=== PATIENT | male | born 1970 | race Caucasian/White ===

== ENCOUNTER 2018-05-13 13:03 | Emergency (ER) | payer MEDICAID, SELFPAY ==
[2018-05-13 13:04] VITALS: BP 124/73; PULSE 74; RESP 18; TEMP 36.4; O2SAT 100; BMI 32.3
--- NOTE | 2018-05-13 13:23 | EKG12_ITS ---
Test Reason : LOWER EXTREMITY Blood Pressure : / mmHG Vent. Rate : 090 BPM Atrial Rate : 090 BPM P-R Int : 126 ms QRS Dur : 096 ms QT Int : 344 ms P-R-T Axes : 062 081 075 degrees QTc Int : 420 ms Poor data quality, interpretation may be adversely affected Normal sinus rhythm Normal ECG Confirmed by LUIS A LAUREANO, SHAYY ([id number]), editorial intern MARILYN ROONEY ([id number] on 05/18/2018 1:02:46 PM Referred By: HANDY Confirmed By:SHAYY GUNN MD
--- NOTE | 2018-05-13 13:24 | VDLE_ITS ---
Reason For Study: BLE EDEMA RIGHT LEFT GSV is normal. GSV is normal. CFV is compressible, spontaneous, phasic, CFV is compressible, spontaneous, phasic, competent and demonstrates normal competent, and demonstrates normal augmentation. augmentation. FV is compressible, spontaneous, phasic, FV is compressible, spontaneous, phasic, competent and demonstrates normal competent and demonstrates normal augmentation. augmentation. POP V is compressible, spontaneous, phasic, POP V is compressible, spontaneous, phasic, competent and demonstrates normal competent and demonstrates normal augmentation. augmentation. T/P Trunk is compressible. T/P Trunk is compressible. PTV is compressible. PTV is compressible. RT PerV is compressible. LT PerV is compressible. Procedure Exam performed portable in ED. The exam was diagnostic. The study was technically difficult. A preliminary report was called and/or faxed to Dr. Witt & ED. Interpretation Summary No evidence for acute deep venous thrombosis bilateral lower extremities with patent and compressible bilateral great saphenous veins. Ordering Physician: Jyotsna Alicea Referring Physician: MONICA PCP Performed By: Martina Pompa, MIESHA, RVT
--- NOTE | 2018-05-13 13:24 | RAD_ITS ---
STUDY: X-RAY CHEST REASON FOR EXAM: Male, 47 years old. TECHNIQUE: COMPARISON: December 20, 2016. FINDINGS: The heart and mediastinum are within normal limits. Calcifications are noted in the thoracic aorta. The lung rogers are clear. Old rib fractures present on the left side. There is no evidence also pleural effusion or pneumothorax. The trachea is in the midline. IMPRESSION: negative chest unchanged since December 20, 2016. Electronically Signed: Neema Mcgee, at 15:20 EST Tel , Service support , RAD/Chest PA and Lateral
[2018-05-13 13:55] LABS: Absolute Lymphocyte Count 2.62 X10^3/ul (0.83-4.51); Absolute Neutrophil Count 2.8 X10^3/uL (2.0-7.7); Basophil# 0.02 X10^3/uL; Basophil% 0.3 % (0-1); Eosinophil# 0.13 X10^3/uL; Eosinophils% 2.1 % (0-5); Hematocrit 46.7 % (40-54); Hemoglobin 15.2 g/dl (13.0-16.5); Lymphocyte # 2.62 X10^3/ul (4.0); Lymphocyte % 42.6 % (19-41); Mean Corp Hgb Conc 32.5 g/gl (32-36); Mean Corpuscular Hgb 31.9 pg (27.0-32.0); Mean Corpuscular Volume 97.9 fL (80-94); Mean Platelet Vol. 10.1 fl (6.2-12.0); Monocyte# 0.54 X10^3/uL; Monocyte% 8.8 % (0-10); Neutrophil # 2.83 X10^3/uL (2.7-7.7); Platelet Count 258 K/mm3 (150-450); RBC Distribution Width CV 12.5 % (11.6-14.6); RBC Distribution Width SD 45.1 fl (35.1-43.9); Red Blood Count 4.77 M/mm3 (4.6-6.2); White Blood Count 6.2 K/mm3 (4.4-11.0)
[2018-05-13 13:56] LABS: POSITIVE COUNT NO; POSITIVE DIFFERENTIAL NO; POSITIVE MORPHOLOGY NO
[2018-05-13 14:10] LABS: Anion Gap 7 (5-15); BUN 11 mg/dL (7-18); BUN/Creat Ratio 8.7 RATIO (10-20); Calcium,Total 8.6 mg/dL (8.5-10.1); Chloride 108 mmol/L (98-107); Creatinine, Serum 1.26 mg/dL (0.70-1.30); EST Glomerular Filtration Rate 65 mL/min (>60); Est Glom Filt Rate - Afr Amer 79 mL/min (>60); Estimated Creatinine Clearance 74.83 ml/min; Glucose 122 mg/dL (74-106); Potassium 4.3 mmol/L (3.5-5.1); Sodium Level 145 mmol/L (136-145)
[2018-05-13 14:22] LABS: BNP,B-Type NATRIURETIC PEPTIDE 207.8 pg/mL (0-100)
--- NOTE | 2018-05-13 15:34 | ED.VISSUMM ---
- ER Visit Summary Date of Service: 05/13/18 Chief Complaint: [Leg swelling] History of Present Illness: The patient is a 47 M [presents to the emergency department with bilateral leg swelling that he has had for 5-6 days. Patient states the legs feel somewhat sore and stiff from the knees down. Patient denies any trauma. He denies recent travel or surgery. Patient states he is urinating normally. Only medical history he states is early COPD. Patient does not have a history of CHF. Patient does not have a history of kidney disease.] Physical Examination: [HEENT-PERRLA, EOMI. Cranial nerves II through XII grossly intact. TMs clear. Mucous membranes moist. No adenopathy. Cardiovascular-regular rate and rhythm without murmur or ectopy Lungs-clear to auscultation, chest wall stable without crepitus or subcu emphysema Abdomen-normoactive bowel sounds, soft, nontender, no rebound or rigidity, no peritoneal signs. Extremities-intact ?4, normal range of motion, normal pulses, atraumatic. Patient has +2 edema both lower extremities at symmetrical.] Test Results: [EKG obtained on arrival showed a sinus rhythm with a ventricular rate of 90 bpm with no acute I segment changes. CBC with differential obtained showed a white count 6.2, hemoglobin 15, hematocrit 47, platelets 258. Chemistries unremarkable. BUN was 11 and creatinine was 1.26. BNP was slightly elevated 207. Troponin was less than 0.015. Venous duplex of both lower extremities was negative. Chest x-ray showed nothing acute.] Emergency Department Course and Treatment: [] Treatment Plan: [Patient advised to follow-up with primary care physician architectural sales consultant for no doc within next 3-5 days. Patient advised to use compression stockings.] Disposition: [Discharged home in stable condition] Impression: [Bilateral leg edema/venous insufficiency] This note was generated with [employer] dictation software. It may contain incorrect words, spelling, and punctuation that were not noted in review of the chart prior to signing ED Disposition - Plan for ED Patient: Chief Complaint: Lower Extremity Injury Referrals: Care Physician,No Primary [Primary Care Provider] -
--- NOTE | 2018-05-13 15:36 | ED.DEP ---
ED Disposition - Plan for ED Patient: Chief Complaint: Lower Extremity Injury Instructions: ED Leg Swelling Bilateral Referrals: Care Physician,No Primary [Primary Care Provider] - Kendall Hadley III, MD [STAFF PHYSICIAN] - 3-5 Days
[2018-05-13] MEDS: Furosemide 40 MG/4 ML Vial IV (15:46)
[2018-05-13 15:57] VITALS: BP 120/70; PULSE 74; RESP 18; O2SAT 97
== END 2018-05-13 16:00 | disposition home or self-care (01) ==
PROVIDERS: Emergency Provider Emergency Medicine
DX: R60.0 Localized edema (principal); I87.2 Venous insufficiency (chronic) (peripheral); J44.9 Chronic obstructive pulmonary disease, unspecified; Z72.0 Tobacco use
CPT/HCPCS: 71046; 80048; 83880; 84484; 85025; 93005; 93970; 96374; 99283; A4216; J1940

== ENCOUNTER 2018-06-20 12:53 | Emergency (ER) | payer MEDICAID, SELFPAY ==
[2018-06-20 12:53] VITALS: BP 131/110; PULSE 92; RESP 16; TEMP 36.8; O2SAT 98; BMI 33.7
--- NOTE | 2018-06-20 13:15 | RAD_ITS ---
STUDY: X-RAY - LEFT KNEE REASON FOR EXAM: Male, 48 years old. Pain. No known injury. TECHNIQUE: 3 view(s) of the knee. COMPARISON: None. FINDINGS: Normal visualized distal femur. Normal visualized proximal tibia and fibula. Normal proximal tibiofibular articulation. There is no demonstrated fracture. Normal medial femorotibial compartment. Normal lateral femorotibial compartment. Normal patellofemoral articulation. There is no demonstrated joint effusion. The soft tissue structures are unremarkable. RAD/Knee 3 Views IMPRESSION: Normal x-ray examination of the knee. Electronically Signed: Juarez Salcedo MD at 15:06 EST Tel , Service support ,
--- NOTE | 2018-06-20 13:49 | ED.VISSUMM ---
- ER Visit Summary Date of Service: 06/20/18 Chief Complaint: [Left knee pain and bilateral leg swelling] History of Present Illness: The patient is a 48 M [presents to the emergency department with main complaint of left knee pain that he said for a couple of days. Patient also states that his legs have been swelling for months. I saw the patient in the emergency department approximately a month ago for complaint of leg swelling and he had a complete workup including venous Dopplers of both lower extremities as well as blood work and chest x-ray and EKG. Workup was unremarkable. Patient states that he has had left knee pain for about 2-3 days without any injury. Denies any chest pain or shortness of breath. Patient complains of pain more when walking. He denies any direct trauma. He denies fevers.] Physical Examination: [HEENT-PERRLA, EOMI. Cranial nerves II through XII grossly intact. TMs clear. Mucous membranes moist. No adenopathy. Cardiovascular-regular rate and rhythm without murmur or ectopy Lungs-clear to auscultation, chest wall stable without crepitus or subcu emphysema Abdomen-normoactive bowel sounds, soft, nontender, no rebound or rigidity, no peritoneal signs. Extremities-intact ?4, normal range of motion, normal pulses, atraumatic. Left knee-patient is got mild tenderness over the medial joint line. There is no effusion. Normal range of motion flexion extension. Ligamentously stable. I do not appreciate any significant edema to the lower extremities.] Test Results: [X-rays of the left knee obtained showed no fractures or dislocations.] Emergency Department Course and Treatment: [Patient was given an [place] wrap and 1 dose of naproxen] Treatment Plan: [Patient will be given a prescription for naproxen and referral to orthopedics if his knee continues to bother him.] Disposition: [Discharged home in stable condition] Impression: [Left knee pain-etiology uncertain] This note was generated with [employer] dictation software. It may contain incorrect words, spelling, and punctuation that were not noted in review of the chart prior to signing ED Disposition - Plan for ED Patient: Referrals: Care Physician,No Primary [Primary Care Provider] -
--- NOTE | 2018-06-20 13:51 | ED.DEP ---
ED Disposition - Plan for ED Patient: Instructions: ED Knee Pain [facility] Prescriptions: Naproxen [Naprosyn] 500 mg PO BID PRN #20 tab Referrals: Care Physician,No Primary [Primary Care Provider] - Pierre Ko DO [STAFF PHYSICIAN] - 5-7 Days Jagruti Linares MD [STAFF PHYSICIAN] - 5-7 Days
[2018-06-20] MEDS: Naproxen 500 MG Tablet PO (14:19)
[2018-06-20 14:20] VITALS: PULSE 82; RESP 16
== END 2018-06-20 14:20 | disposition home or self-care (01) ==
PROVIDERS: Emergency Provider Emergency Medicine
DX: M25.562 Pain in left knee (principal); Z72.0 Tobacco use
CPT/HCPCS: 73562; 99283

== ENCOUNTER → 2018-09-08 09:56 | Outpatient (CLI) | payer MEDICAID, SELFPAY ==
[2018-08-21 14:32] VITALS: BMI 33.7
--- NOTE | 2018-09-09 09:59 | PFT ---
INTRODUCTION: The patient is a 48-year-old male that presents for pulmonary function studies secondary to a diagnosis of shortness of breath. Respiratory therapy reports good patient effort. Bronchodilators were used during testing. INTERPRETATION: Forced expiration spirometry demonstrates the presence of a severe large airways obstructive ventilatory defect with an FEV1 of 45% of predicted. There was no significant response to aerosolized bronchodilators. Spirograms are of good quality and do not plateau indicating slow emptying of the lungs. Body plethysmography was performed and reveals an elevated RV to 169% of predicted, indicative of underlying air trapping. Diffusing capacity by single breath CO is reduced at 66% of predicted. IMPRESSION: Irreversible severe large airways obstructive ventilatory defect with associated air trapping and reduction in diffusing capacity, consistent with a diagnosis of COPD.
== END ==
PROVIDERS: Family Provider Internal Medicine; PCP Internal Medicine; Referring Provider Internal Medicine; Visit Provider Internal Medicine
DX: R06.02 Shortness of breath (principal)
CPT/HCPCS: 94060; 94726; 94729

== ENCOUNTER 2018-09-12 17:04 | Emergency (ER) | payer MEDICAID, SELFPAY ==
[2018-08-21 14:32] VITALS: BMI 33.7
[2018-09-12 17:05] VITALS: BP 164/87; PULSE 84; RESP 18; TEMP 36.8; O2SAT 97; BMI 32.5
--- NOTE | 2018-09-12 17:35 | ED.DCSUM_ITS ---
- ER Visit Summary Date of Service: 09/12/18 Chief Complaint: Atraumatic left knee pain History of Present Illness: The patient is a 48 M no significant past medical history. Patient states last 2 to 3 months has had atraumatic intermittent left knee pain. No swelling. No fever. No redness. Was seen in the emergency department in June had an x-ray at that time which was unremarkable. He has not had an MRI of his knee. Saw his orthopedic physician's office and they want to try physical therapy which he has not done as of yet. Physical Examination: Well-appearing white male. No acute distress. Vital signs stable afebrile. HEENT exam unremarkable. Lungs clear to auscultation. Heart regular rhythm no murmur. Abdomen soft nontender. He is moving all 4 extremities. They are neurovascularly intact. Calves are nontender without edema or cords. He has normal range of motion to his left hip, knee and ankle. Dorsi plantar flexion intact. Left knee no swelling. No effusion. No redness. No warmth. Normal flexion extension. ACL PCL, LCL and MCL are intact with good endpoints. Neurologic exam normal. Test Results: None Emergency Department Course and Treatment: Patient I discussed that he needs follow-up with orthopedics. He may need an MRI of his knee. He will be written for anti-inflammatories. Treatment Plan: Naprosyn for pain. Follow-up with Dr. Carlos of orthopedics. Disposition: dc Impression: Acute on chronic left knee pain This note was generated with [employer] dictation software. It may contain incorrect words, spelling, and punctuation that were not noted in review of the chart prior to signing ED Disposition - Plan for ED Patient: Referrals: Clarisa Roman MD [Primary Care Provider] -
--- NOTE | 2018-09-12 17:35 | ED.DEP ---
ED Disposition - Plan for ED Patient: Disposition: Home or Assisted Living Instructions: ED Knee Pain [facility] Prescriptions: Naproxen [Naprosyn] 375 mg PO BID PRN PRN #30 tab PRN Reason: Pain Referrals: Merly Carlos DO [STAFF PHYSICIAN] - As soon as possible Additional Instructions: Ice to your left knee. Naprosyn for pain and inflammation Follow-up with your orthopedic surgeon.
--- NOTE | 2018-09-12 17:43 | ED.RN ---
PT GIVEN WRITTEN AND VERBAL DISCHARGE INSTRUCTIONS AND EDUCATED ON HOME GOING PRESCRIPTIONS. PT VERBALIZES UNDERSTANDING AND DENIES ANY FURTHER QUESTIONS. PT AMBULATES OUT OF DEPT BY SELF.
== END 2018-09-12 17:44 | disposition home or self-care (01) ==
PROVIDERS: Emergency Provider Emergency Medicine; Family Provider Internal Medicine; PCP Internal Medicine
DX: M25.562 Pain in left knee (principal); G89.29 Other chronic pain; R19.7 Diarrhea, unspecified; Z72.0 Tobacco use
CPT/HCPCS: 99282

== ENCOUNTER 2019-11-21 12:30 | Inpatient (IN) | payer MEDICAID, SELFPAY ==
[2018-10-22 15:05] VITALS: BMI 32.5
[2019-11-21] VITALS (38 sets, daily range): BP systolic 78–149; BP diastolic 57–100; PULSE 85–163; RESP 22–38; TEMP 36.4–37; O2SAT 94–99; BMI 31.8; BMI 31.6
--- NOTE | 2019-11-21 12:47 | EKG12_ITS ---
Test Reason : Blood Pressure : / mmHG Vent. Rate : 131 BPM Atrial Rate : 187 BPM P-R Int : 000 ms QRS Dur : 092 ms QT Int : 316 ms P-R-T Axes : 000 094 011 degrees QTc Int : 466 ms Atrial fibrillation with rapid ventricular response Rightward axis Abnormal ECG Confirmed by DAVID LAUREANO, SHANELL ([id number]), business editor BRIAN MANZO ([id number]) on 11/23/2019 11:03:55 AM Referred By: TRACY Confirmed By:SHANELL HERNANDEZ MD
--- NOTE | 2019-11-21 12:49 | ED.VISSUMM ---
- ER Visit Summary Date of Service: 11/21/19 Chief Complaint: Shortness of breath History of Present Illness: The patient is a 49 M who presents with shortness of breath that is been getting worse over the past 5 to 6 days. Patient states it is gradually gotten worse. Patient states his breathing is worse with any exertion as well as with laying flat. Patient admits to some swelling in his lower extremities as well. Patient denies any cough. Patient denies any fevers or chills. Patient denies any sore throat or rhinorrhea. Patient denies any chest pain. Patient states he has had some palpitations where he felt his heart beating fast. Patient states he has been using his inhalers with no improvement of his shortness of breath. Physical Examination: Vital signs are stable except for tachycardia of 142 and a tachypnea of 24. Patient is afebrile. Patient is in no acute distress. Oral mucosa is pink and moist. Neck is supple. Trachea is midline. There is no JVD. Heart was irregularly irregular and tachycardic. Lungs are diminished bilaterally. Abdomen is soft. Bowel sounds are normal. There is no tenderness. Extremities are intact. There is 2+ edema of the lower extremities bilaterally to the knees. There is no calf tenderness. Cranial nerves II through XII are intact. There are no focal motor or sensory deficits. Test Results: EKG showed atrial fibrillation with a rate of 131. There are no acute ST or T wave changes. Previous EKG showed normal sinus rhythm. This was dated 05/13/2018. CBC and comprehensive metabolic profile were within normal limits. Troponin was indeterminate at 0.064. BNP was elevated at 644.9. Chest x-ray shows a right lower lobe infiltrate. This was interpreted by the radiologist and reviewed by myself. Emergency Department Course and Treatment: Patient was given a bolus of Cardizem here. Patient was started on a Cardizem drip. Patient's heart rate improved. Patient was started on Rocephin and Zithromax. Blood cultures were obtained. Case was discussed with the hospitalist. Patient will be admitted. Patient understands and is agreeable with the plan. All questions were answered. Disposition: Admit to hospital Impression: 1. Atrial fibrillation with rapid ventricular response 2. Pneumonia This note was generated with [employer] software. It may contain incorrect words, spelling, and punctuation that were not noted in review of the chart prior to signing ED Disposition - Plan for ED Patient: Disposition: Acute Care Hospital [facility] Diagnosis: Atrial fibrillation with rapid ventricular response, Pneumonia Referrals: Clarisa Roman MD [Primary Care Provider] -
[2019-11-21] MEDS: 0.9% Normal Saline 1,000 ML 1000 ML IV (12:54)
[2019-11-21] MEDS: dilTIAZem 25 MG/5 ML Vial IV BOLUS (12:54)
[2019-11-21 12:59] LABS: Bacteria 0 SEEN /hpf (None Seen); Color, Urine Yellow (Yellow); Glucose, Dipstick Normal (Normal); Ketone-Dipstick Negative (Negative); Leukocyte Esterase-Dipstick Negative /ul (Negative); Mucous, Urine 0 SEEN /hpf (<or=2+); Nitrite-Dipstick Negative (Negative); Occult Blood-Urine Negative /ul (Negative); Protein-Dipstick Negative (Negative); Red Blood Cells-Urine 0 SEEN /hpf (0-5); Specific Gravity, Urine 1.005 (1.002-1.030); Squamous Epithelial Cells - UA 0 SEEN /hpf (0-5); Urine Bilirubin Dipstick Negative (Negative); Urine Clarity Clear (Clear); Urine Urobilinogen Normal (Normal); White Blood Cells 0 SEEN /hpf (0-5)
[2019-11-21 13:00] LABS: Absolute Lymphocyte Count 2.96 X10^3/uL (0.83-4.51); Absolute Neutrophil Count 6.3 X10^3/uL (2.0-7.7); Basophil# 0.03 X10^3/uL; Basophil% 0.3 % (0-1); Eosinophil# 0.08 X10^3/uL; Eosinophils% 0.8 % (0-5); Hematocrit 43.5 % (40-54); Hemoglobin 13.8 g/dL (13.0-16.5); Lymphocyte # 2.96 X10^3/ul (4.0); Lymphocyte % 29.1 % (19-41); Mean Corp Hgb Conc 31.7 g/dL (32-36); Mean Corpuscular Hgb 32.2 pg (27.0-32.0); Mean Corpuscular Volume 101.6 fL (80-94); Mean Platelet Vol. 10.1 fl (6.2-12.0); Monocyte# 0.76 X10^3/uL; Monocyte% 7.5 % (0-10); NRBC Flagged by Analyzer 0 % (0-5); Neutrophil # 6.29 X10^3/uL (2.7-7.7); Neutrophil % 61.8 % (47-70); Platelet Count 253 K/mm3 (150-450); RBC Distribution Width CV 13.3 % (11.6-14.6); RBC Distribution Width SD 49.4 fl (35.1-43.9); Red Blood Count 4.28 M/mm3 (4.6-6.2); White Blood Count 10.2 K/mm3 (4.4-11.0)
[2019-11-21 13:09] LABS: International Normalized Ratio 1.2; Prothrombin Time (Protime)PT. 14.2 SECONDS (11.7-14.9)
[2019-11-21 13:10] LABS: Partial Thromboplast Time 34.5 Seconds (24.1-36.2)
--- NOTE | 2019-11-21 13:12 | RAD_ITS ---
STUDY: X-RAY CHEST REASON FOR EXAM: Male, 49 years old. CHEST PAIN TECHNIQUE: AP upright portable view. COMPARISON: 05/13/2018. FINDINGS: Ill-defined interstitial infiltrates in the right lower lobe. There is no demonstrated pleural abnormality. Normal size heart. Normal mediastinum and jeremy. Normal visualized pulmonary arteries. Normal visualized aortic arch and descending thoracic aorta. Normal visualized thoracic spine. Normal visualized ribs, clavicles, and shoulders. There is no demonstrated abnormality of the visualized soft tissue structures of the upper abdomen. RAD/Chest 1 View (Portable) IMPRESSION: Right lower lobe interstitial pneumonitis, new when compared to 05/13/2018. Electronically Signed: Александр Ortega MD at 13:38 EDT , Service support ,
[2019-11-21 13:18] LABS: ALB/GLOB Ratio 0.8 RATIO (0.9-2.4); AST(SGOT) 15 U/L (15-37); Alanine Aminotransfer ALT/SGPT 22 U/L (16-61); Alkaline Phosphatase 73 U/L (45-117); Anion Gap 3 (5-15); BNP,B-Type NATRIURETIC PEPTIDE 644.9 pg/mL (0-100); BUN 16 mg/dL (7-18); BUN/Creat Ratio 17.4 RATIO (10-20); Calcium,Total 8.3 mg/dL (8.5-10.1); Chloride 110 mmol/L (98-107); Creatinine, Serum 0.92 mg/dL (0.70-1.30); EST Glomerular Filtration Rate 93 mL/min (>60); Est Glom Filt Rate - Afr Amer 112 mL/min (>60); Estimated Creatinine Clearance 100.29 ml/min; Globulin 3.8 g/dL (2.2-4.2); Glucose 121 mg/dL (74-106); Potassium 4.2 mmol/L (3.5-5.1); Protein, Total 6.8 g/dL (6.4-8.2); Sodium Level 141 mmol/L (136-145)
--- NOTE | 2019-11-21 14:29 | ED.RN ---
NS lock was clamped and med not infusing. Unclamped and running without difficulty.
--- NOTE | 2019-11-21 15:18 | PCM.HP.STD ---
Problem List (1) Atrial fibrillation with rapid ventricular response Status: Acute (2) COPD (chronic obstructive pulmonary disease) Status: Chronic (3) Tobacco abuse Status: Chronic (4) Tobacco abuse counseling Status: Chronic (5) Knee pain, bilateral Status: Chronic History of Present Illness Date of Admission: 11/21/19 Chief Complaint: Shortness of breath. The patient is a 49 year old M who presents the emergency room due to shortness of breath. Patient reports this began about 6 days ago and has worsened since that time. He reports lower extremity swelling. States he has difficulty lying flat due to shortness of breath. Denies cough, fever, chills. Patient admits to cocaine use, reports last use 4 to 5 days ago. Denies history of CHF, atrial fibrillation. He denies chest pain. He denies alcohol or other drug use. He denies known weight gain. He has a past medical history of COPD and tobacco dependence. Past Medical History Past Medical History (Chronic Problems): Chronic Problems (Last Reviewed 10/22/18 @ 15:03 by Kimberly Tillman) COPD (chronic obstructive pulmonary disease) (Chronic) Tobacco abuse (Chronic) Tobacco abuse counseling (Chronic) Knee pain, bilateral (Chronic) Medical History: Medical History (Last Reviewed 10/22/18 @ 15:03 by Kimberly Tillman) Knee pain, bilateral (Chronic) M25.561, M25.562 Allergies No Known Allergies Allergy (Verified 09/12/18 17:05) Home Medications: Ambulatory Orders Medication Instructions Recorded mometasone-formoterol HFA 100 2 puff INHALATION BID #8.8 g 10/26/19 mcg-5 mcg/actuation aerosol inhaler Albuterol Inhaler [Ventolin Hfa 1 puff INHALATION Q4H PRN PRN 11/21/19 (SP)] Surgical History: Surgical History (Last Reviewed 10/22/18 @ 15:03 by Kimberly Tillman) History of appendectomy Z90.49 Surgical History: appendectomy Psychiatric History: No pertinent psych hx Lives: Alone Smoking Status: Current every day smoker Tobacco Use: Cigarettes Alcohol: None Drugs: Cocaine - *Family History Maternal Family History: Family History (Last Reviewed 10/22/18 @ 15:03 by Kimberly Tillman) Father Throat cancer History Items: Diabetes Paternal Family History: Family History (Last Reviewed 10/22/18 @ 15:03 by Kimberly Tillman) Father Throat cancer Review of Systems Constitutional: Denies: Chills, Fever, Weight Change HEENT: Denies: Head Aches, Sinus Congestion, Sinus Drainage Cardiovascular: Reports: Edema - Lower extremity. Denies: Chest Pain, Light Headedness, Palpitations, Syncope Respiratory: Reports: Shortness of Breath. Denies: Cough, Sputum production, Wheezing Gastrointestinal: Denies: Abdominal Pain, Nausea, Vomiting Genitourinary: Denies: Dysuria Musculoskeletal: Denies: Joint Pain, Joint Tenderness Skin: Denies: Rash, Wounds Neurological: Denies: Numbness, Tingling, Focal weakness Psychiatric: Denies: Anxiety, Depression, Homicidal Ideations, Suicidal Ideations Hematologic/ Lymphatic: Denies: Easy Bruising, Easy Bleeding VTE Information - Inpt Only VTE Present on Admission: No VTE Mechan Device Prophylaxis: None VTE Pharm Prophylaxis ordered?: Yes Patient Problems: Active and Suspected Problems (Last Reviewed 10/22/18 @ 15:03 by iKmberly Tillman) Atrial fibrillation with rapid ventricular response (Acute) - Physical Exam Vitals/I&O's: Vital Signs Temp Pulse Resp BP Pulse Ox 98.6 F 109 H 22 H 120/73 95 11/21/19 14:20 11/21/19 14:40 11/21/19 14:40 11/21/19 14:40 11/21/19 14:40 Oxygen Delivery Method Room Air Weight: 222 lb 6.4 oz Body Mass Index (BMI) 31.8 General: Alert, Oriented x3, Cooperative HEENT: Atraumatic, PERRLA, EOMI, Normocephalic Oral: Dry Mucosa Neck: Supple, No JVD, Negative Carotid Bruits Lungs: Clear to auscultation, Diminished Cardiovascular: - - Atrial fibrillation, tachycardic Abdomen: Bowel Sounds Present, Soft, Non Tender, Non-Distended Extremities: No clubbing, No cyanosis, Edema - +2 bilateral lower extremity edema Skin: No rashes, No breakdown Musculoskeletal: No Tenderness to Palpation of Joints or Extremities Neurological: Cranial nerves II-XII grossly intact, Neuro grossly intact Psych/Mental Status: Normal Affect, Appropriate Laboratory Results 11/21/19 12:40: Urine Color Yellow, Urine Clarity Clear, Urine pH 6.0, Ur Specific [place] 1.005, Urine Protein Negative, Urine Glucose (UA) Normal, Urine Ketones Negative, Urine Occult Blood Negative, Urine Nitrite Negative, Urine Bilirubin Negative, Urine Urobilinogen Normal, Ur Leukocyte Esterase Negative, Urine RBC 0 SEEN, Urine WBC 0 SEEN, Ur Squamous Epith Cells 0 SEEN, Urine Bacteria 0 SEEN, Urine Mucus 0 SEEN 11/21/19 12:45: WBC 10.2, RBC 4.28 L, Hgb 13.8, Hct 43.5, MCV 101.6 H, MCH 32.2 H, MCHC 31.7 L, RDW Std Deviation 49.4 H, RDW Coeff of Aron 13.3, Plt Count 253, MPV 10.1, Immature Gran % (Auto) 0.500, Neut % (Auto) 61.8, Lymph % (Auto) 29.1, [place] % (Auto) 7.5, Eos % (Auto) 0.8, Baso % (Auto) 0.3, Absolute Neuts (auto) 6.3, Absolute Lymphs (auto) 2.96, Nucleated RBC % 0 11/21/19 12:45: PT 14.2, INR 1.2, APTT 34.5 11/21/19 12:45: Sodium 141, Potassium 4.2, Chloride 110 H, Carbon Dioxide 28.0, Anion Gap 3 L, BUN 16, Creatinine 0.92, Estim Creat Clear Calc 100.29, Est GFR (MDRD) Af Amer 112, Est GFR (MDRD) Non-Af 93, BUN/Creatinine Ratio 17.4, Glucose 121 H, Calcium 8.3 L, Total Bilirubin 0.70, AST 15, ALT 22, Alkaline Phosphatase 73, Troponin I 0.064 H, Total Protein 6.8, Albumin 3.0 L, Globulin 3.8, Albumin/Globulin Ratio 0.8 L 11/21/19 12:45: B-Natriuretic Peptide 644.9 H 11/21/19 14:56: Lactic Acid Pending Current Medications Diltiazem HCl 125 mg/ Dextrose 125 mls @ 5 mls/hr IV .Q25H [facility]; Protocol Last Admin: 11/21/19 13:19 Dose: 5 mg/hr, 5 mls/hr Documented by: Azithromycin 500 mg/ Dextrose 255 mls @ 250 mls/hr IV X1 ONE Stop: 11/21/19 15:43 Assessment/Plan All Active Problems (Last Reviewed 10/22/18 @ 15:03 by Kimberly Tillman) Atrial fibrillation with rapid ventricular response (Acute) 1. Atrial fibrillation with RVR-initiated on Cardizem drip in ER. Trend enzymes. Check TSH, mag. Suspect secondary to cocaine use. Tox screen pending. Obtain echo. 2. Acute CHF-BNP 644. Lasix 40 mg IV twice daily. Strict I&O. Daily weight. Obtain echo. 3. Indeterminate troponin-suspect demand ischemia related to #1. Trend enzymes. 4. Chronic COPD- no exacerbation. PRN albuterol aerosol. 5. Tobacco dependence-continues to smoke. Nicotine replacement patch if desired. 6. Cocaine use-denies other drug use. Tox screen pending. DVT prophylaxis-Lovenox subcu This patient was seen by JONAH Knox under the supervision of Dr. Holliday.
--- NOTE | 2019-11-21 15:19 | ECHOCS_ITS ---
Reason For Study: CHF Procedure This was a 2D Doppler, Color Flow transthoracic echocardiogram. Contrast injection was performed. Exam performed portable in patient room. Left Ventricle Normal LV size. The estimated ejection fraction is 45 %. Infero-Basal: Severely Hypokinetic. Basal inferoseptal: Hypokinetic. There is mild global hypokinesis of the left ventricle. Right Ventricle Normal RV size. Normal systolic function. Atria The left atrium is mildly enlarged. Normal right atrium. Mitral Valve Moderate (2+) eccentric mitral valve insufficiency. Tricuspid Valve Normal tricuspid valve. Mild (1+) tricuspid valve insufficiency. Pulmonary artery systolic pressure is 40 mmHg. Aortic Valve The aortic valve is not well visualized. Pulmonic Valve The pulmonic valve is not well visualized. Great Vessels Normal aortic root. The pulmonary artery is normal size. Normal inferior vena cava. Pericardium/Pleural No pericardial effusion. Medication Diluted definity 2ml given slow IV push to enhance endocardial definition. MMode/2D Measurements & Calculations LVIDd: 5.4 cm IVSd: 1.2 cm LA dimension: 5.0 cm LVIDs: 4.5 cm LVPWd: 1.1 cm RVDd: 4.3 cm FS: 17.9 % LAV(MOD-bp): 80.8 ml LA A4 area: 23.2 cm2 RA A4 area: 16.8 cm2 LAV(MOD-bp) Indexed: 37.1 ml/m2 LAV(MOD-sp2): 88.4 ml LAV(MOD-sp4): 70.4 ml Time Measurements MV dec time: 0.19 sec Doppler Measurements & Calculations MV E max emory: 103.3 cm/sec Lat Peak E' Emory: 11.7 cm/sec Med Peak E' Emory: 7.8 cm/sec E/E' lat: 8.8 E/E' med: 13.2 MV V2 max: 108.6 cm/sec MV P1/2t max emory: 108.6 cm/sec Ao V2 max: 90.6 cm/sec MV max P.7 mmHg MV P1/2t: 60.2 msec Ao max P.3 mmHg MV V2 mean: 51.3 cm/sec MV dec slope: 528.1 cm/sec2 MV mean P.4 mmHg MV V2 VTI: 28.5 cm MVA(P1/2t): 3.7 cm2 LV V1 max: 72.5 cm/sec MR max emory: 444.7 cm/sec PA V2 max: 67.9 cm/sec LV V1 max P.1 mmHg MR max P.1 mmHg MR mean emory: 325.0 cm/sec MR mean P.9 mmHg MR VTI: 143.4 cm TR max emory: 296.2 cm/sec TR max P.1 mmHg Interpretation Summary Normal LV size. The left atrium is mildly enlarged. Pulmonary artery systolic pressure is 40 mmHg. Moderate (2+) eccentric mitral valve insufficiency. Contrast injection was performed. Ordering Physician: Sandra Burt Referring Physician: Clarisa Roman Performed By: Roldan Carlson RCS
[2019-11-21] MEDS: Ceftriaxone 1 GM/50 ML BAG IV (15:41)
[2019-11-21 15:53] LABS: Magnesium 1.9 mg/dL (1.6-2.6)
[2019-11-21 16:00] LABS: Lactic Acid 1.1 mmol/L (0.4-1.9)
[2019-11-21 16:13] LABS: Amphetamine Urine VISTA NEGATIVE (<1000 ng/mL); Barbiturate Urine VISTA NEGATIVE (< 200 ng/mL); Benzodiazepine Urine VISTA NEGATIVE (< 200 ng/mL); Cocaine Urine VISTA POSITIVE (< 300 ng/mL); Ecstacy Urine VISTA NEGATIVE (< 500 ng/mL); Methadone Urine VISTA NEGATIVE (< 300 ng/mL); PCP Urine VISTA NEGATIVE (< 25 ng/mL); THC Urine VISTA NEGATIVE (< 50 ng/mL); Vista UDS pH Range 6
[2019-11-21 17:22] LABS: Thyroid Stim Hormone (TSH) 1.12 uIU/mL (0.358-3.74)
[2019-11-21] MEDS: Metoprolol Tartrate 5 MG/5 ML Vial IV (18:09)
[2019-11-21] MEDS: Furosemide 40 MG/4 ML Vial IV (18:10)
[2019-11-21] MEDS: Metoprolol Tartrate 25 MG Tablet PO (19:10)
[2019-11-21 19:35] LABS: HIV - WCH Non-Reactive (Nonreactive)
[2019-11-21] MEDS: 0.9% Saline Lock 10 ML Syringe IV (19:54)
[2019-11-21] MEDS: Amiodarone 360 MG in Dextrose 5% Viaflo Bag 192.8 ML 33.3 MG CONT INF (20:00)
[2019-11-22] VITALS (32 sets, daily range): BP systolic 93–156; BP diastolic 38–100; PULSE 65–97; RESP 12–41; TEMP 36.2–37.1; O2SAT 93–100
--- NOTE | 2019-11-22 00:05 | EKG12_ITS ---
Test Reason : CONVERTED TO NSR Blood Pressure : / mmHG Vent. Rate : 077 BPM Atrial Rate : 077 BPM P-R Int : 128 ms QRS Dur : 090 ms QT Int : 376 ms P-R-T Axes : 058 096 075 degrees QTc Int : 425 ms Normal sinus rhythm Normal ECG Confirmed by LUIS A LAUREANO, SHAYY ([id number]), editorial director GREGORIA ESCOBAR ([id number]) on 11/24/2019 10:33:20 AM Referred By: DR IRVING Confirmed By:SHAYY GUNN MD
--- NOTE | 2019-11-22 01:11 | NURSING ---
Sarah Beth Alcantar her to see pt.
--- NOTE | 2019-11-22 01:15 | RAD_ITS ---
STUDY: X-RAY CHEST REASON FOR EXAM: Male, 49 years old. Increased shortness of breath. TECHNIQUE: AP portable chest. COMPARISON: November 21, 2019. May 13, 2018. FINDINGS: No focal infiltrates. Costophrenic angles are blunted unchanged since November 2019 and new since May 13, 2018, compatible with small bilateral pleural effusions. There is borderline cardiomegaly. Normal mediastinum and jeremy. Normal visualized pulmonary arteries. Atherosclerotic calcification of the aortic arch. Normal visualized thoracic spine. Normal visualized ribs, clavicles, and shoulders. There is no demonstrated abnormality of the visualized soft tissue structures of the upper abdomen. RAD/Chest 1 View (Portable) IMPRESSION: Borderline cardiomegaly and small bilateral pleural effusions not significantly changed since November 21, 2019. Electronically Signed: Ashu Soto MD at 3:01 EDT , Service support ,
[2019-11-22] MEDS: Furosemide 40 MG/4 ML Vial IV ×3 (01:17→10:56)
[2019-11-22] MEDS: 0.9% Saline Lock 10 ML Syringe IV ×4 (01:17→10:56)
--- NOTE | 2019-11-22 01:20 | PCM.PN.BLA ---
Progress Note Patient was seen at the bedside because nurse reported patient was in respiratory distress. Patient alert and oriented appears anxious. Patient diaphoretic. Heart sounds S1-S2 present Tachypnea lungs are clear. Bilateral lower legs [place] wrapped. Impression cocaine withdrawal Ativan 2 mg IV x1. Acute CHF Give additional dose of 40 mg IV push Lasix. Get chest x-ray. STROKE Vital Signs/Narrative: Vital Signs Temp Pulse Resp BP Pulse Ox 11/22/19 00:45 79 41 H 125/75 H 97 11/22/19 00:42 95 11/22/19 00:30 74 41 H 136/72 H 97 11/22/19 00:15 75 38 H 134/62 H 94 11/22/19 00:00 79 29 H 142/77 H 95 11/21/19 23:00 87 35 H 94/62 96 11/21/19 22:30 85 37 H 93/68 98 11/21/19 22:00 97.9 F 93 37 H 85/65 L 98 11/21/19 21:45 88 37 H 83/60 L 98 11/21/19 21:30 89 31 H 90/71 99
[2019-11-22] MEDS: LORazepam 2 MG/ML Syringe IV (01:25)
[2019-11-22 01:31] LABS: Bedside Glucose 158 mg/dL (70-110)
[2019-11-22 07:29] LABS: Anion Gap 7 (5-15); BUN 25 mg/dL (7-18); BUN/Creat Ratio 18.7 RATIO (10-20); Calcium,Total 8.5 mg/dL (8.5-10.1); Chloride 108 mmol/L (98-107); Cholesterol 104 mg/dL (200); Creatinine, Serum 1.34 mg/dL (0.70-1.30); EST Glomerular Filtration Rate 60 mL/min (>60); Est Glom Filt Rate - Afr Amer 73 mL/min (>60); Estimated Creatinine Clearance 68.85 ml/min; Glucose 133 mg/dL (74-106); High Density Lipoprotein 27 mg/dL; Potassium 4.9 mmol/L (3.5-5.1); Sodium Level 140 mmol/L (136-145); Triglycerides 85 mg/dL; Very Low Density Lipoprotein 17 mg/dL (5-40)
[2019-11-22] MEDS: Enoxaparin 40 MG/0.4 ML Syringe SC (11:01)
--- NOTE | 2019-11-22 13:17 | PN_ITS ---
<JavedSandra - Last Filed: 11/22/19 13:32> Patient Problems: Active and Suspected Problems (Last Reviewed 10/22/18 @ 15:03 by Kimberly Tillman) Atrial fibrillation with rapid ventricular response (Acute) Pneumonia (Acute) Subjective: Patient seen and examined. Reports episode of increased shortness of breath overnight and was placed on BiPAP with improvement. Converted to sinus rhythm. - Physical Exam Vitals/I&O's: Vital Signs Temp Pulse Resp BP Pulse Ox 98.8 F 74 23 H 109/50 L 100 11/22/19 12:00 11/22/19 12:00 11/22/19 12:00 11/22/19 12:00 11/22/19 12:00 Oxygen Flow Rate (L/min) 3 Oxygen Delivery Method Nasal Cannula Weight: 220 lb 0.341 oz Body Mass Index (BMI) 31.6 Intake and Output for Last 24 Hours 11/20/19 11/21/19 11/22/19 23:59 23:59 23:59 Intake Total 1959.50 / 1963.67 267.08 / 267.08 Output Total 975 / 975 2725 / 2725 Balance 984.50 / 988.67 -2457.92 / -2457.92 General: Alert, Oriented x3, Cooperative HEENT: Atraumatic, PERRLA, EOMI, Normocephalic Neck: Supple, No JVD, Negative Carotid Bruits Lungs: Clear to auscultation, Diminished Cardiovascular: Regular rate, No murmurs Abdomen: Bowel Sounds Present, Soft, Non Tender, Non-Distended Extremities: No clubbing, No cyanosis, Edema - +1 bilateral lower extremities Skin: No rashes, No breakdown Musculoskeletal: No Tenderness to Palpation of Joints or Extremities Neurological: Cranial nerves II-XII grossly intact, Neuro grossly intact Psych/Mental Status: Normal Affect, Appropriate Laboratory Results 11/21/19 12:40: Urine Opiates Screen NEGATIVE, Urine Methadone Screen NEGATIVE, Ur Barbiturates Screen NEGATIVE, Ur Phencyclidine Scrn NEGATIVE, Ur Amphetamines Screen NEGATIVE, U Methamphetamin-MDMA NEGATIVE, U Benzodiazepines Scrn NEGATIVE, Urine Cocaine Screen POSITIVE H, U Cannabinoids Screen NEGATIVE, Ur Drug Screen Comment 11/21/19 12:45: Sodium 141, Potassium 4.2, Chloride 110 H, Carbon Dioxide 28.0, Anion Gap 3 L, BUN 16, Creatinine 0.92, Estim Creat Clear Calc 100.29, Est GFR (MDRD) Af Amer 112, Est GFR (MDRD) Non-Af 93, BUN/Creatinine Ratio 17.4, Glucose 121 H, Calcium 8.3 L, Total Bilirubin 0.70, AST 15, ALT 22, Alkaline Phosphatase 73, Troponin I 0.064 H, Total Protein 6.8, Albumin 3.0 L, Globulin 3.8, Albumin/Globulin Ratio 0.8 L 11/21/19 12:45: B-Natriuretic Peptide 644.9 H 11/21/19 12:45: Magnesium 1.9 11/21/19 12:45: HIV 1&2 Antibody Non-Reactive 11/21/19 14:56: Lactic Acid 1.1 11/21/19 16:40: Troponin I 0.053 H 11/21/19 16:45: TSH 1.12 11/21/19 19:30: Troponin I 0.071 H 11/22/19 01:00: POC Glucose 158 H 11/22/19 06:41: Sodium 140, Potassium 4.9, Chloride 108 H, Carbon Dioxide 25.0, Anion Gap 7, BUN 25 H, Creatinine 1.34 H, Estim Creat Clear Calc 68.85, Est GFR (MDRD) Af Amer 73, Est GFR (MDRD) Non-Af 60, BUN/Creatinine Ratio 18.7, Glucose 133 H, Calcium 8.5, Triglycerides 85, Cholesterol 104, LDL Cholesterol 60, VLDL Cholesterol 17, HDL Cholesterol 27 L Current Medications Acetaminophen (Tylenol) 650 mg PO Q6H PRN PRN PRN Reason: Pain Score 1-10/Temp > 100.7 F Albuterol Sulfate (Ventolin Aerosols) 2.5 mg INHALATION Q2H PRN PRN PRN Reason: SHORTNESS OF BREATH Dextrose (D50w Syringe) 0 gm IV X1 PRN; Protocol PRN Reason: Hypoglycemia Enoxaparin Sodium (Lovenox) 40 mg SC DAILY [facility] [place] Last Admin: 11/22/19 11:01 Dose: 40 mg Documented by: Furosemide (Lasix) 40 mg IV DAILY [facility] [place] Last Admin: 11/22/19 10:56 Dose: 40 mg Documented by: Glucagon () 1 mg IM .X1 PRN PRN Reason: Hypoglycemia Nicotine (Nicoderm Cq (Pbkc)) 7 mg TRANSDERM. DAILY [facility] Last Admin: 11/22/19 11:00 Dose: Not Given Documented by: Ondansetron HCl (Zofran) 4 mg IV Q8H PRN PRN PRN Reason: NAUSEA/VOMITING Sodium Chloride () 10 - 40 ml IV UD PRN PRN Reason: SALINE FLUSH Last Admin: 11/22/19 10:56 Dose: 10 ml Documented by: Medical Necessity - Tobacco Use Smoking Status: Light Smoker (<10/day) Tobacco Use: Cigarettes Assessment/Plan All Active Problems (Last Reviewed 10/22/18 @ 15:03 by Kimberly Tillman) Atrial fibrillation with rapid ventricular response (Acute) Pneumonia (Acute) 1. Atrial fibrillation with RVR-initiated on Cardizem drip in ER. TSH, mag normal. Suspect secondary to cocaine use. Spontaneously converted to sinus rhythm. Cardizem discontinued. CHADSVASC score 0. Will defer oral anticoagulation. 2. Acute heart failure with reduced ejection fraction-BNP 644. IV Lasix on admission, transition to oral Lasix 40 mg daily given increasing creatinine. Strict I&O. Daily weight. Echocardiogram demonstrates an EF of 45%, moderate mitral valve insufficiency, pulmonary artery systolic pressure 40 mmHg. 3. Indeterminate troponin-suspect demand ischemia related to #1. 4. Chronic COPD- no exacerbation. PRN albuterol aerosol. 5. Tobacco dependence-continues to smoke. Nicotine replacement patch if desired. 6. Cocaine use-denies other drug use. Tox screen positive for cocaine. DVT prophylaxis-Lovenox subcu This patient was seen by JONAH Knox under the supervision of . <Leann Lee - Last Filed: 11/22/19 14:15> Subjective: The following is a reflection of my independent history and exam Pt reports that he is feeling much better. No SOB. Resting comfortably. Appetite is okay. - Physical Exam Vitals/I&O's: Vital Signs Temp Pulse Resp BP Pulse Ox 98.8 F 74 23 H 109/50 L 100 11/22/19 12:00 11/22/19 12:00 11/22/19 12:00 11/22/19 12:00 11/22/19 12:00 Oxygen Flow Rate (L/min) 3 Oxygen Delivery Method Nasal Cannula Weight: 99.8 kg Body Mass Index (BMI) 31.6 Intake and Output for Last 24 Hours 11/20/19 11/21/19 11/22/19 23:59 23:59 23:59 Intake Total 1959.50 / 1963.67 267.08 / 267.08 Output Total 975 / 975 2725 / 2725 Balance 984.50 / 988.67 -2457.92 / -2457.92 General: Alert, Oriented x3, Cooperative, No apparent distress, Well developed, Well nourished, - - middle aged white male HEENT: Atraumatic, PERRLA, EOMI, Normocephalic, EAC Clear Oral: Moist Mucosa, No Gingival or Mucosal Lesions/ Ulcerations, - - dentures in place Neck: Supple, No JVD, No Nodes, Trachea Midline, Thyroid Normal Size and Texture Lungs: Clear to auscultation, No rhonchi, No wheeze, No rales, Diminished - diffusely Cardiovascular: Regular rate, Regular Rhythm, Normal S1, Normal S2, No murmurs, No Ectopic Activity, No rub noted, No Gallop Abdomen: Bowel Sounds Present, Soft, Non Tender, Non-Distended, No hernias noted Extremities: No clubbing, No cyanosis, No edema, Capillary Refill Less than 3 Seconds Skin: No rashes, No breakdown Musculoskeletal: No Tenderness to Palpation of Joints or Extremities, No Muscle Wasting Lymphatic: No Cervical, Supraclavicular, or Inguinal Adenopathy Neurological: Cranial nerves II-XII grossly intact, Neuro grossly intact Psych/Mental Status: Appropriate, Flat Affect, Alert and oriented to time, place, person, mood and affect Laboratory Results 11/21/19 12:40: Urine Opiates Screen NEGATIVE, Urine Methadone Screen NEGATIVE, Ur Barbiturates Screen NEGATIVE, Ur Phencyclidine Scrn NEGATIVE, Ur Amphetamines Screen NEGATIVE, U Methamphetamin-MDMA NEGATIVE, U Benzodiazepines Scrn NEGATIVE, Urine Cocaine Screen POSITIVE H, U Cannabinoids Screen NEGATIVE, Ur Drug Screen Comment 11/21/19 12:45: Magnesium 1.9 11/21/19 12:45: HIV 1&2 Antibody Non-Reactive 11/21/19 14:56: Lactic Acid 1.1 11/21/19 16:40: Troponin I 0.053 H 11/21/19 16:45: TSH 1.12 11/21/19 19:30: Troponin I 0.071 H 11/22/19 01:00: POC Glucose 158 H 11/22/19 06:41: Sodium 140, Potassium 4.9, Chloride 108 H, Carbon Dioxide 25.0, Anion Gap 7, BUN 25 H, Creatinine 1.34 H, Estim Creat Clear Calc 68.85, Est GFR (MDRD) Af Amer 73, Est GFR (MDRD) Non-Af 60, BUN/Creatinine Ratio 18.7, Glucose 133 H, Calcium 8.5, Triglycerides 85, Cholesterol 104, LDL Cholesterol 60, VLDL Cholesterol 17, HDL Cholesterol 27 L Current Medications Acetaminophen (Tylenol) 650 mg PO Q6H PRN PRN PRN Reason: Pain Score 1-10/Temp > 100.7 F Albuterol Sulfate (Ventolin Aerosols) 2.5 mg INHALATION Q2H PRN PRN PRN Reason: SHORTNESS OF BREATH Dextrose (D50w Syringe) 0 gm IV X1 PRN; Protocol PRN Reason: Hypoglycemia Enoxaparin Sodium (Lovenox) 40 mg SC DAILY [facility] [place] Last Admin: 11/22/19 11:01 Dose: 40 mg Documented by: Glucagon () 1 mg IM .X1 PRN PRN Reason: Hypoglycemia Nicotine (Nicoderm Cq (Pbkc)) 7 mg TRANSDERM. DAILY [facility] [place] Last Admin: 11/22/19 11:00 Dose: Not Given Documented by: Ondansetron HCl (Zofran) 4 mg IV Q8H PRN PRN PRN Reason: NAUSEA/VOMITING Sodium Chloride () 10 - 40 ml IV UD PRN PRN Reason: SALINE FLUSH Last Admin: 11/22/19 10:56 Dose: 10 ml Documented by: Assessment/Plan ASSESSMENT A-fib with RVR HFrEF SHAQ Indeterminate troponin COPD Macrocytosis Cocaine Abuse (10-15 yrs) Tobacco Abuse (3-4 cig/day) PLAN -now in NSR -on no meds -[id number] is 0--> No OAC required -EF 45% with global dysfunction -suspect EF depression and A-fib related to cocaine abuse -counseled on importance of cessation -would recommend repeat ECHO in 6 weeks -D/C Lasix -liberalized PO fluid intake -repeat troponin in am -repeat am lab -Wean O2 from 3 to 1 L--> SpO2 97% on 1 L -wean to off -suspect D/C tomorrow Inpatient E&M: 09902 Subs Hosp L2
--- NOTE | 2019-11-22 13:19 | CASEMGMT ---
YOSEF SIFUENTES assessment: Face to Face with patient for initial transition planning/care coordination assessment. YOSEF SIFUENTES introduced self and role at [facility], pt voices understanding and consents to assessment at this time. Pt is lying in bed in no distress at this time. Pt is A/Ox4 at this time and answers all questions appropriately at this time. Care providers, pharmacy, and demographics verified at this time. Presentation: Increased SOB [id number] leg edema for 3 days Admitting dx: Afib RVR, CHF PCP: Jessie Specialists: Pt states no current specialists. [facility]erred [facility] Insurance: [facility] Prescription Benefit: [facility] Living Will/HPOA: Pt states does not have LW/HPOA and declines AD info at this time. LNOK: Tonia Case, sister Living Arrangements: Pt states lives with 'friend' in apartment with a flight of stairs and states does get SOB going upstairs. Pt states is independent with ADL's. Transportation: Pt states uses cabs or friends to get where he needs to go and states no transportation concerns at this time. DME/HHC: Pt states no current DME or need for any at this time. Pt states no hx of HHC or SNF in the past. Pt states no concerns with going home at time of discharge. Pt states is unemployed. Pt states smokes about 3-4 cigarettes daily and does not drink ETOH. Pt states does use cocaine but states does not 'have a problem' and does not want any resources at this time. Pt states no further concerns/needs at this time. CM to follow for home oxygen need and for any further discharge planning/needs. Pt states no preference for DME company, if needed, at this time. Advised pt to ask for CM if any further questions/concerns/needs arise, voices understanding. Pt Goal: Home Plan[place] YOSEF SIFUENTES
--- NOTE | 2019-11-22 13:56 | NURSING ---
This RN taking over patient care at this time.
[2019-11-23] VITALS (38 sets, daily range): BP systolic 107–152; BP diastolic 45–97; PULSE 76–155; RESP 19–29; TEMP 36.7–37.2; O2SAT 95–98
[2019-11-23 06:23] LABS: Anion Gap 5 (5-15); BUN 28 mg/dL (7-18); BUN/Creat Ratio 27.7 RATIO (10-20); Calcium,Total 8.1 mg/dL (8.5-10.1); Chloride 107 mmol/L (98-107); Creatinine, Serum 1.01 mg/dL (0.70-1.30); EST Glomerular Filtration Rate 83 mL/min (>60); Est Glom Filt Rate - Afr Amer 101 mL/min (>60); Estimated Creatinine Clearance 91.35 ml/min; Glucose 98 mg/dL (74-106); Sodium Level 142 mmol/L (136-145)
[2019-11-23] MEDS: 0.9% Saline Lock 10 ML Syringe IV ×4 (07:03→11:54)
--- NOTE | 2019-11-23 07:56 | EKG12_ITS ---
Test Reason : RHY CHANGE Blood Pressure : / mmHG Vent. Rate : 082 BPM Atrial Rate : 082 BPM P-R Int : 138 ms QRS Dur : 086 ms QT Int : 364 ms P-R-T Axes : 060 092 074 degrees QTc Int : 425 ms Normal sinus rhythm Septal infarct , age undetermined Abnormal ECG When compared with ECG of 24-NOV-2019 05:36, MANUAL COMPARISON REQUIRED, DATA IS UNCONFIRMED Confirmed by DAVID LAUREANO, SHANELL ([id number]), slot editor BRIAN MANZO ([id number]) on 11/29/2019 1:27:32 PM Referred By: LEEANN Confirmed By:SHANELL HERNANDEZ MD
[2019-11-23] MEDS: dilTIAZem 25 MG/5 ML Vial 10 MG IV BOLUS (08:12)
[2019-11-23] MEDS: Enoxaparin 40 MG/0.4 ML Syringe SC (08:49)
[2019-11-23] MEDS: Metoprolol Tartrate 5 MG/5 ML Vial IV ×2 (10:24→11:55)
--- NOTE | 2019-11-23 12:51 | PCM.CONS.C ---
Problem List (1) Atrial fibrillation and flutter Status: Acute (2) NSTEMI (non-ST elevated myocardial infarction) Status: Acute (3) Cardiomyopathy Status: Acute (4) COPD (chronic obstructive pulmonary disease) Status: Chronic (5) Tobacco abuse Status: Chronic (6) Illicit drug use Status: Acute Reason for Consult Date of Consultation: 11/23/19 History of Present Illness: The patient is a 49 year [id number] white male who claims to have no past cardiovascular history, but does have a history of COPD, who presents for evaluation of shortness of breath/dyspnea and has been found to have evidence of atrial fibrillation/flutter, abnormal cardiac enzymes, and abnormal transthoracic echocardiogram, and an abnormal toxicology screen compatible with cocaine. He stated his main concern was progressive shortness of breath and dyspnea with exertion but also to some degree at rest in the supine position. He does not recall ongoing chest discomfort or the sensation of palpitations. He denies any near-syncope or syncope. He presented to the [facility] emergency department for further evaluation. He was found to be in atrial fibrillation. He was treated by the [facility] ED team and hospitalist team with rate limiting medications/antiarrhythmic therapy. He regain sinus rhythm. However he has subsequently returned to atrial fibrillation/flutter with a rapid ventricular response. In the interim he is undergone evaluation with cardiac enzymes which have demonstrated indeterminate troponin I levels. He also had a transthoracic echocardiogram performed with the results as noted below. His chest x-ray suggested findings compatible with pleural effusions. He was subsequently recommended for further cardiovascular consultation. Of note, he does admit to recent cocaine use prior to the initiation of his symptoms. [] Past Medical History Allergies/Adverse Reactions: Allergies No Known Allergies Allergy (Verified 09/12/18 17:05) Home Medications: Ambulatory Orders Medication Instructions Recorded mometasone-formoterol HFA 100 2 puff INHALATION BID #8.8 g 10/26/19 mcg-5 mcg/actuation aerosol inhaler Albuterol Inhaler [Ventolin Hfa 1 puff INHALATION Q4H PRN PRN 11/21/19 (SP)] Past Medical History (Chronic Problems): Chronic Problems (Last Reviewed 10/22/18 @ 15:03 by Kimberly Tillman) COPD (chronic obstructive pulmonary disease) (Chronic) Tobacco abuse (Chronic) Tobacco abuse counseling (Chronic) Knee pain, bilateral (Chronic) Surgical History: appendectomy Psychiatric History: No pertinent psych hx - *Family History Maternal Family History: Family History (Last Reviewed 10/22/18 @ 15:03 by Kimberly Tillman) Father Throat cancer History Items: Diabetes Paternal Family History: Family History (Last Reviewed 10/22/18 @ 15:03 by Kimberly Tillman) Father Throat cancer Lives: Alone Smoking Status: Light Smoker (<10/day) Tobacco Use: Cigarettes Alcohol: None Drugs: Cocaine Review of Systems - Review of Systems General: Denies: Fever, Night Sweats, Fatigue Cardiovascular: Reports: Shortness of Breath, Shortness of Breath at Rest, Shortness of Breath with Exertion, Orthopnea. Denies: Chest Discomfort, PND, Peripheral Edema, Palpitations, Lightheadedness, Dizziness, Near Syncope, Syncope Respiratory: Reports: Shortness of Breath. Denies: Cough, Sputum Production, Hemoptysis Gastrointestinal: Denies: Hematemesis, Hematochezia, Melena Genitourinary: Denies: Dysuria, Hematuria Skin: Denies: Rash Subjectve: This is a 49-year-old white male who appears to be resting reasonably comfortably at the moment in no acute distress. Objective: Vital Signs Temp Pulse Resp BP Pulse Ox 98.2 F 141 H 19 H 110/63 98 11/23/19 11:53 11/23/19 11:55 11/23/19 11:53 11/23/19 11:53 11/23/19 11:53 Oxygen Flow Rate (L/min) 1 Oxygen Delivery Method Nasal Cannula Weight: 212 lb 8.41 oz Body Mass Index (BMI) 31.6 Intake and Output for Last 24 Hours 11/21/19 11/22/19 11/23/19 23:59 23:59 23:59 Intake Total 1959.50 / 1963.67 689.08 / 689.08 600 / 600 Output Total 975 / 975 3725 / 3725 200 / 200 Balance 984.50 / 988.67 -3035.92 / -3035.92 400 / 400 General: Awake, Alert, Oriented x 3, Cooperative, No Acute Distress HEENT: Atraumatic, Normocephalic, PERRL, EOMI, Sclera Non Icteric Oral: Moist Mucosa Neck: Supple, Good ROM, No JVD Lungs: Clear to auscultation Cardiovascular: Irregular Rhythm, Normal S1, Normal S2 Abdomen: Bowel Sounds Present, Soft, Non Tender Extremities: No edema Neurological: No Focal Motor or Sensory Deficit Psych/Mental Status: Appropriate 11/22/19 14:45: Troponin I 0.061 H 11/23/19 05:22: Sodium 142, Potassium 4.0, Chloride 107, Carbon Dioxide 30.0, Anion Gap 5, BUN 28 H, Creatinine 1.01, Est GFR (MDRD) Af Amer 101, Est GFR (MDRD) Non-Af 83, BUN/Creatinine Ratio 27.7 H, Glucose 98, Calcium 8.1 L Rhythm: Atrial flutter with variable ventricular response EKG: Atrial fibrillation with subsequent notation of conversion to sinus rhythm with subsequent return to atrial fibrillation ECHO: Procedure This was a 2D Doppler, Color Flow transthoracic echocardiogram. Contrast injection was performed. Exam performed portable in patient room. Left Ventricle Normal LV size. The estimated ejection fraction is 45 %. Infero-Basal: Severely Hypokinetic. Basal inferoseptal: Hypokinetic. There is mild global hypokinesis of the left ventricle. Right Ventricle Normal RV size. Normal systolic function. Atria The left atrium is mildly enlarged. Normal right atrium. Mitral Valve Moderate (2+) eccentric mitral valve insufficiency. Tricuspid Valve Normal tricuspid valve. Mild (1+) tricuspid valve insufficiency. Pulmonary artery systolic pressure is 40 mmHg. Aortic Valve The aortic valve is not well visualized. Pulmonic Valve The pulmonic valve is not well visualized. Great Vessels Normal aortic root. The pulmonary artery is normal size. Normal inferior vena cava. Pericardium/Pleural No pericardial effusion. Medication Diluted definity 2ml given slow IV push to enhance endocardial definition. MMode/2D Measurements & Calculations LVIDd: 5.4 cm IVSd: 1.2 cm LA dimension: 5.0 cm LVIDs: 4.5 cm LVPWd: 1.1 cm RVDd: 4.3 cm FS: 17.9 % LAV(MOD-bp): 80.8 ml LA A4 area: 23.2 cm2 RA A4 area: 16.8 cm2 LAV(MOD-bp) Indexed: 37.1 ml/m2 LAV(MOD-sp2): 88.4 ml LAV(MOD-sp4): 70.4 ml Time Measurements MV dec time: 0.19 sec Doppler Measurements & Calculations MV E max emory: 103.3 cm/sec Lat Peak E' Emory: 11.7 cm/sec Med Peak E' Emory: 7.8 cm/sec E/E' lat: 8.8 E/E' med: 13.2 MV V2 max: 108.6 cm/sec MV P1/2t max emory: 108.6 cm/sec Ao V2 max: 90.6 cm/sec MV max P.7 mmHg MV P1/2t: 60.2 msec Ao max P.3 mmHg MV V2 mean: 51.3 cm/sec MV dec slope: 528.1 cm/sec2 MV mean P.4 mmHg MV V2 VTI: 28.5 cm MVA(P1/2t): 3.7 cm2 LV V1 max: 72.5 cm/sec MR max emory: 444.7 cm/sec PA V2 max: 67.9 cm/sec LV V1 max P.1 mmHg MR max P.1 mmHg MR mean emory: 325.0 cm/sec MR mean P.9 mmHg MR VTI: 143.4 cm TR max emory: 296.2 cm/sec TR max P.1 mmHg Interpretation Summary Normal LV size. The left atrium is mildly enlarged. Pulmonary artery systolic pressure is 40 mmHg. Moderate (2+) eccentric mitral valve insufficiency. Contrast injection was performed. Ordering Physician: Sandra Burt Referring Physician: Clarisa Roman Performed By: Roldan Carlson RCS : Preliminary evaluation as noted above; please see official report Assessment/Plan 1. Atrial fibrillation/flutter The patient presents with atrial fibrillation/flutter. It is unclear how long he has been having these events. Based upon his hospital stay it appears he is gone in and out of atrial fibrillation/flutter versus sinus rhythm. The etiology is unclear. There is concern this could be related to not only his age but a combination of underlying cardiovascular disease, his COPD, as well as his history of illicit drug use with cocaine use. At the present time he will need to continue attempts at rate control therapy, antiarrhythmic therapy, and continue with anticoagulant therapy with adjustment as deemed appropriate. He is already undergone evaluation with cardiac enzymes which were indeterminant. He has had an echocardiogram performed. He has had a chest x-ray performed. 2. Non-ST segment elevation TN The patient does have abnormal cardiac enzymes concerning for non-ST segment elevation TN. It is unclear whether this is a type I event from underlying atherosclerotic coronary artery disease versus being related to his recent cocaine use versus being a type II event being brought out by his atrial dysrhythmia with rapid ventricular response. At the moment he will continue medical therapy. This will include antiplatelet agents, anticoagulant agents, medicine such as beta-blockers, etc. He should be considered for further evaluation with diagnostic cardiac catheterization based upon his clinical course and objective findings. This procedure and risks were discussed with him. He was agreeable to this approach. 3. COPD He does have a history of COPD. He should continue evaluation care per internal medicine. 4. Tobacco use He has also been counseled on the need to discontinue all tobacco products. 5. Illicit drug use He does admit to taking cocaine. This could be a contributing factor to his symptoms and his objective findings. He has been counseled on the need to discontinue all illicit drug use. Comment: The above has been discussed and reviewed with the patient and the [facility] hospitalist team. This note was generated using a voice recognition system and there may be incorrect words, spelling or punctuation that were not noted when reviewing the office note prior to saving. Procedure Criteria Procedure Type: Elective COVID Risk Discussion: The surgeon/proceduralist and patient have discussed in detail the risk of exposure to and/or potential harm posed by the COVID-19 virus with having a surgery/procedure at this time versus the risk of delaying the surgery/procedure. It is not possible to know either the risk of delaying the surgery or procedure or chance of getting an infection with perfect accuracy, but a joint decision was made between the patient and the surgeon/proceduralist to proceed at this time with the scheduled surgery/procedure as indicated on the consent form.
--- NOTE | 2019-11-23 13:02 | PCM.PROGNOTE ---
<JavedSandra - Last Filed: 11/23/19 13:07> Patient Problems: Active and Suspected Problems (Last Reviewed 10/22/18 @ 15:03 by Kimberly Tillman) Atrial fibrillation with rapid ventricular response (Acute) Pneumonia (Acute) Atrial fibrillation and flutter (Acute) NSTEMI (non-ST elevated myocardial infarction) (Acute) Illicit drug use (Acute) Cardiomyopathy (Acute) Subjective: Patient seen and examined. Denies further shortness of breath. Denies chest pain, palpitations. - Physical Exam Vitals/I&O's: Vital Signs Temp Pulse Resp BP Pulse Ox 98.2 F 141 H 19 H 110/63 98 11/23/19 11:53 11/23/19 11:55 11/23/19 11:53 11/23/19 11:53 11/23/19 11:53 Oxygen Flow Rate (L/min) 1 Oxygen Delivery Method Nasal Cannula Weight: 212 lb 8.41 oz Body Mass Index (BMI) 31.6 Intake and Output for Last 24 Hours 11/21/19 11/22/19 11/23/19 23:59 23:59 23:59 Intake Total 1959.50 / 1963.67 689.08 / 689.08 600 / 600 Output Total 975 / 975 3725 / 3725 200 / 200 Balance 984.50 / 988.67 -3035.92 / -3035.92 400 / 400 General: Alert, Oriented x3, Cooperative HEENT: Atraumatic, PERRLA, EOMI, Normocephalic Neck: Supple, No JVD, Negative Carotid Bruits Lungs: Clear to auscultation, Diminished Cardiovascular: - - Atrial flutter, tachycardic Abdomen: Bowel Sounds Present, Soft, Non Tender, Non-Distended Extremities: No clubbing, No cyanosis, No edema, Capillary Refill Less than 3 Seconds Skin: No rashes, No breakdown Musculoskeletal: No Tenderness to Palpation of Joints or Extremities Neurological: Cranial nerves II-XII grossly intact, Neuro grossly intact Psych/Mental Status: Normal Affect, Appropriate Laboratory Results 11/22/19 14:45: Troponin I 0.061 H 11/23/19 05:22: Sodium 142, Potassium 4.0, Chloride 107, Carbon Dioxide 30.0, Anion Gap 5, BUN 28 H, Creatinine 1.01, Estim Creat Clear Calc 91.35, Est GFR (MDRD) Af Amer 101, Est GFR (MDRD) Non-Af 83, BUN/Creatinine Ratio 27.7 H, Glucose 98, Calcium 8.1 L Current Medications Acetaminophen (Tylenol) 650 mg PO Q6H PRN PRN PRN Reason: Pain Score 1-10/Temp > 100.7 F Albuterol Sulfate (Ventolin Aerosols) 2.5 mg INHALATION Q2H PRN PRN PRN Reason: SHORTNESS OF BREATH Aspirin (Ecotrin) 81 mg PO DAILY@0800 [facility] Clopidogrel Bisulfate (Plavix) 300 mg PO X1 ONE Stop: 11/23/19 12:48 Dextrose (D50w Syringe) 0 gm IV X1 PRN; Protocol PRN Reason: Hypoglycemia Enoxaparin Sodium (Lovenox) 100 mg 1 mg/kg (100 mg) SC Q12@0600,1800 [facility] Glucagon () 1 mg IM .X1 PRN PRN Reason: Hypoglycemia Sodium Chloride () 1,000 mls @ 0 mls/hr IV .Q0M [facility] Amiodarone HCl 360 mg/ (Dextrose) 200 mls @ 33.333 mls/hr CONT INF .Q6H [facility] Stop: 11/23/19 18:49 Amiodarone HCl 150 mg/ (Dextrose) 103 mls @ 600 mls/hr IV BOLUS X1 ONE Stop: 11/23/19 12:59 Metoprolol Tartrate (Lopressor (Beta Millicent)) 5 mg IV Q6 [facility] Last Admin: 11/23/19 11:55 Dose: 5 mg Documented by: Metoprolol Tartrate (Lopressor (Beta Millicent)) 25 mg PO BID [facility] Nicotine (Nicoderm Cq (Pbkc)) 7 mg TRANSDERM. DAILY [facility] Last Admin: 11/23/19 08:49 Dose: Not Given Documented by: Ondansetron HCl (Zofran) 4 mg IV Q8H PRN PRN PRN Reason: NAUSEA/VOMITING Sodium Chloride () 10 - 40 ml IV UD PRN PRN Reason: SALINE FLUSH Last Admin: 11/23/19 11:54 Dose: 10 ml Documented by: Medical Necessity - Tobacco Use Smoking Status: Light Smoker (<10/day) Tobacco Use: Cigarettes Assessment/Plan All Active Problems (Last Reviewed 10/22/18 @ 15:03 by Kimberly Tillman) Atrial fibrillation with rapid ventricular response (Acute) Pneumonia (Acute) Atrial fibrillation and flutter (Acute) NSTEMI (non-ST elevated myocardial infarction) (Acute) Illicit drug use (Acute) Cardiomyopathy (Acute) 1. Atrial fibrillation with RVR/atrial flutter-initiated on Cardizem drip in ER. TSH, mag normal. Spontaneously converted to sinus rhythm however this morning went into atrial flutter. CHADSVASC score 0. Will defer oral anticoagulation. Cardiology consulted. Initiated on amiodarone drip. 2. Acute heart failure with reduced ejection fraction-BNP 644. IV Lasix on admission, further Lasix discontinued due to increased creatinine. Strict I&O. Daily weight. Echocardiogram demonstrates an EF of 45%, moderate mitral valve insufficiency, pulmonary artery systolic pressure 40 mmHg. 3. Indeterminate troponin-suspect demand ischemia related to #1. Cardiology planning on heart cath in a.m. 4. Chronic COPD- no exacerbation. PRN albuterol aerosol. 5. Tobacco dependence-continues to smoke. Nicotine replacement patch if desired. 6. Cocaine use-denies other drug use. Tox screen positive for cocaine. DVT prophylaxis-Lovenox subcu This patient was seen by JONAH Knox under the supervision of . <Leann Lee - Last Filed: 11/23/19 14:15> Subjective: Pt denies SOB. Sleeping but awakens easily. Denies sensation of tachycardia or palpitations. No complaints. - Physical Exam Vitals/I&O's: Vital Signs Temp Pulse Resp BP Pulse Ox 98.9 F 114 H 23 H 111/66 96 11/23/19 13:01 11/23/19 13:01 11/23/19 13:01 11/23/19 13:01 11/23/19 13:01 Oxygen Flow Rate (L/min) 1 Oxygen Delivery Method Nasal Cannula Weight: 96.4 kg Body Mass Index (BMI) 31.6 Intake and Output for Last 24 Hours 11/21/19 11/22/19 11/23/19 23:59 23:59 23:59 Intake Total 1959.50 / 1963.67 689.08 / 689.08 600 / 600 Output Total 975 / 975 3725 / 3725 200 / 200 Balance 984.50 / 988.67 -3035.92 / -3035.92 400 / 400 General: Alert, Oriented x3, Cooperative, No apparent distress, Well developed, Well nourished, - - WM lying in bed sleeping, appears comfortable HEENT: Atraumatic, PERRLA, EOMI, Normocephalic, EAC Clear Oral: Moist Mucosa, No Gingival or Mucosal Lesions/ Ulcerations Neck: Supple, No JVD, Negative Hepatojugular Reflux, Trachea Midline Lungs: Clear to auscultation, Normal air movement, No rhonchi, No wheeze Cardiovascular: Normal S1, Normal S2, No murmurs, Irregular Rate, No rub noted, No Gallop, Tachycardic, - - Irreg rhythm Abdomen: Bowel Sounds Present, Soft, Non Tender, Non-Distended, No Hepato-splenomegaly, Obese, No hernias noted Extremities: No clubbing, No cyanosis, No edema, Capillary Refill Less than 3 Seconds, Peripheral Pulses Normal Skin: No rashes, Ulcer/ Wound Musculoskeletal: No Tenderness to Palpation of Joints or Extremities, No Muscle Wasting Lymphatic: No Cervical, Supraclavicular, or Inguinal Adenopathy Neurological: Cranial nerves II-XII grossly intact, Neuro grossly intact, Sensory exam intact to light touch and pain, Coordination normal Psych/Mental Status: Normal Affect, Appropriate, Alert and oriented to time, place, person, mood and affect Laboratory Results 11/22/19 14:45: Troponin I 0.061 H 11/23/19 05:22: Sodium 142, Potassium 4.0, Chloride 107, Carbon Dioxide 30.0, Anion Gap 5, BUN 28 H, Creatinine 1.01, Estim Creat Clear Calc 91.35, Est GFR (MDRD) Af Amer 101, Est GFR (MDRD) Non-Af 83, BUN/Creatinine Ratio 27.7 H, Glucose 98, Calcium 8.1 L Current Medications Acetaminophen (Tylenol) 650 mg PO Q6H PRN PRN PRN Reason: Pain Score 1-10/Temp > 100.7 F Albuterol Sulfate (Ventolin Aerosols) 2.5 mg INHALATION Q2H PRN PRN PRN Reason: SHORTNESS OF BREATH Aspirin (Ecotrin) 81 mg PO DAILY@0800 [facility] Dextrose (D50w Syringe) 0 gm IV X1 PRN; Protocol PRN Reason: Hypoglycemia Enoxaparin Sodium (Lovenox) 100 mg 1 mg/kg (100 mg) SC Q12@0600,1800 [facility] Glucagon () 1 mg IM .X1 PRN PRN Reason: Hypoglycemia Sodium Chloride () 1,000 mls @ 0 mls/hr IV .Q0M [facility] Amiodarone HCl 360 mg/ (Dextrose) 200 mls @ 33.333 mls/hr CONT INF .Q6H [facility] Stop: 11/23/19 19:59 Amiodarone HCl 360 mg/ (Dextrose) 200 mls @ 16.667 mls/hr CONT INF .Q12H [facility] Stop: 11/24/19 13:59 Nicotine (Nicoderm Cq (Pbkc)) 7 mg TRANSDERM. DAILY [facility] Last Admin: 11/23/19 08:49 Dose: Not Given Documented by: Ondansetron HCl (Zofran) 4 mg IV Q8H PRN PRN PRN Reason: NAUSEA/VOMITING Sodium Chloride () 10 - 40 ml IV UD PRN PRN Reason: SALINE FLUSH Last Admin: 11/23/19 11:54 Dose: 10 ml Documented by: Assessment/Plan The following is a reflection of my own independent history and exam ASSESSMENT A-fib with RVR HFrEF SHAQ Indeterminate troponin (? NSTEMI 1 vs 2) COPD Macrocytosis -Obesity (BMI 30.5) Cocaine Abuse (10-15 yrs) Tobacco Abuse (3-4 cig/day) PLAN -A-fib with now flutter re-occurred overnight and has persisted -Cards consultation -has had Cardizem earlier without response--> would avoid with lower EF -BB scheduled--> held on amio and Cards has recommend to proceed with this -possible cardiac cath -[id number] is 1 with his depressed EF -Lovenox initiated -pt was loaded with Plavix today -continue ASA -wean O2 as able -SHAQ has resolved -troponin has trended down but still elevated -recommend wgt loss Inpatient E&M: 62143 Subs Hosp L3
--- NOTE | 2019-11-23 13:03 | CASEMGMT ---
According to the [facility] website, the following are in-network tertiary facilities: [facility], [place], [facility], [facility], [facility], [facility], [place], [facility], and . Dennis NAVAS CM
[2019-11-23] MEDS: Clopidogrel Bisulfate 300 MG Tablet PO (14:17)
[2019-11-23] MEDS: Aspirin E.C. 81 MG Tablet PO (14:17)
[2019-11-23] MEDS: Amiodarone 360 MG in Dextrose 5% Viaflo Bag 192.8 ML 33.3 MG CONT INF (14:30)
[2019-11-23] MEDS: Metoprolol Tartrate 25 MG Tablet PO ×2 (14:33→21:42)
[2019-11-23] MEDS: Enoxaparin 100 MG/ML Syringe SC (17:52)
--- NOTE | 2019-11-23 21:12 | NURSING ---
per patient request, pt's wallet with 148 dollars stahl locked in [facility] med drawer.
[2019-11-23] MEDS: Amiodarone 360 MG in Dextrose 5% Viaflo Bag 192.8 ML 16.7 MG CONT INF (21:41)
--- NOTE | 2019-11-23 22:10 | NURSING ---
pt frustrated and angry with CHG bath, linen change, and med pass. Stated I know very little about this procedure tomorrow and every time I go to sleep someone else comes to bother me. This RN provided emotional support and cardiac cath handout, in which I reviewed in depth with pt. Verbalized understanding and apologetic for anger.
[2019-11-24] VITALS (44 sets, daily range): BP systolic 112–157; BP diastolic 53–113; PULSE 76–136; RESP 19–36; TEMP 36.4–37.4; O2SAT 92–97
--- NOTE | 2019-11-24 01:29 | CPS ---
PT refused bipap for the night
[2019-11-24] MEDS: Metoprolol Tartrate 25 MG Tablet PO (05:33)
[2019-11-24] MEDS: 0.9% Normal Saline 1,000 ML 15 ML IV (05:33)
[2019-11-24] MEDS: Aspirin E.C. 81 MG Tablet PO (05:33)
--- NOTE | 2019-11-24 05:55 | EKG12_ITS ---
Test Reason : AM EKG Blood Pressure : / mmHG Vent. Rate : 110 BPM Atrial Rate : 133 BPM P-R Int : 000 ms QRS Dur : 098 ms QT Int : 370 ms P-R-T Axes : 000 096 035 degrees QTc Int : 500 ms Atrial fibrillation Abnormal ECG When compared with ECG of 23-NOV-2019 08:02, MANUAL COMPARISON REQUIRED, DATA IS UNCONFIRMED Confirmed by DAVID LAUREANO, SHANELL ([id number]), multimedia editor BRIAN MANZO ([id number]) on 11/29/2019 1:21:10 PM Referred By: Confirmed By:SHANELL HERNNADEZ MD
[2019-11-24 06:21] LABS: Absolute Lymphocyte Count 3.79 X10^3/uL (0.83-4.51); Absolute Neutrophil Count 5.4 X10^3/uL (2.0-7.7); Basophil# 0.03 X10^3/uL; Basophil% 0.3 % (0-1); Hematocrit 40.6 % (40-54); Lymphocyte # 3.79 X10^3/ul (4.0); Lymphocyte % 36.3 % (19-41); Mean Corpuscular Hgb 31.9 pg (27.0-32.0); Mean Corpuscular Volume 99.8 fL (80-94); Mean Platelet Vol. 10.5 fl (6.2-12.0); Monocyte% 9.6 % (0-10); NRBC Flagged by Analyzer 0 % (0-5); Neutrophil # 5.42 X10^3/uL (2.7-7.7); Neutrophil % 51.8 % (47-70); Platelet Count 280 K/mm3 (150-450); RBC Distribution Width CV 12.8 % (11.6-14.6); RBC Distribution Width SD 46.5 fl (35.1-43.9); Red Blood Count 4.07 M/mm3 (4.6-6.2); White Blood Count 10.4 K/mm3 (4.4-11.0)
[2019-11-24 06:28] LABS: International Normalized Ratio 1.1; Prothrombin Time (Protime)PT. 13.8 SECONDS (11.7-14.9)
[2019-11-24 06:59] LABS: AST(SGOT) 18 U/L (15-37); Alanine Aminotransfer ALT/SGPT 25 U/L (16-61); Albumin, Serum 2.5 g/dL (3.2-5.0); Alkaline Phosphatase 69 U/L (45-117); Anion Gap 5 (5-15); BUN 22 mg/dL (7-18); BUN/Creat Ratio 24.6 RATIO (10-20); Calcium,Total 8.1 mg/dL (8.5-10.1); Chloride 109 mmol/L (98-107); Creatinine, Serum 0.89 mg/dL (0.70-1.30); EST Glomerular Filtration Rate 96 mL/min (>60); Est Glom Filt Rate - Afr Amer 116 mL/min (>60); Estimated Creatinine Clearance 103.67 ml/min; Globulin 3.6 g/dL (2.2-4.2); Glucose 97 mg/dL (74-106); Potassium 4.1 mmol/L (3.5-5.1); Protein, Total 6.1 g/dL (6.4-8.2); Sodium Level 140 mmol/L (136-145)
--- NOTE | 2019-11-24 08:02 | CL.D_ITS ---
Patient Name: HÉCTOR CARNEY Study Date: 11/24/2019 Performing: Maik Milian MD Ht: 70.07 inches 178 cm : 1970 Wt: 211.64 lbs 96 kg Age: 49 Gender: male BSA: 2.14 PROCEDURE(S) PERFORMED [id number]-ZAL/COR/LV CLINICAL PROFILE AND INDICATIONS Indications: Suspected CAD Heart Failure: None Stress/Imaging Stress/Image Study Performed: No Angina Classification Anginal Classification w/in 2 Weeks: CCS IV CAD Presentations: Non-STEMI. CONCLUSIONS Elevated Left Ventricular End Diastolic Pressure Global LV systolic dysfunction- Moderate LVEF: by LV gram 30 % Normal coronary arteries RECOMMENDATIONS Medical therapy DESCRIPTION OF PROCEDURE The patient arrived to the procedure lab. The risks and benefits of the procedure as well as a full d escription of our services here and current unavailability of surgical backup were fully explained to the patient and/or their significant other prior to the catheterization. The Timeout was completed, verifying the correct patient and procedure. The patient's procedural site was prepped and draped in the usual fashion. Local anesthetic was given subcutaneously to right groin region with Lidocaine 2%. Using a modified Seldinger technique, arterial access was obtained via the right femoral artery, a 4 Fr sheath was inserted Left Coronary Artery selective angiography was performed in multiple views us ing a 4 Fr. JL5 catheter. Right Coronary Artery selective angiography was then performed in multiple views using a 4 Fr. 3DRC catheter. Left Ventriculography was performed in LERMA projection using a 4 Fr . Pigtail catheter. LV to AO pullback pressures were then recorded.The arterial sheath was pulled and manual compression applied until hemostasis is achieved. CORONARY ANGIOGRAPHY DOMINANCE: Left Dominant LEFT HEART ASSESSMENT Left Ventricular Ejection Fraction: by LV Gram 30 % Global Hypokinesis Elevated Left Ventricular End Diastolic Pressure LVEDP: 23 mmHg LEFT MAIN: Angiographically normal LEFT ANTERIOR DESCENDING ARTERY: Angiographically normal CIRCUMFLEX ARTERY: Angiographically normal RIGHT CORONARY ARTERY: Angiographically normal AORTIC ROOT: Angiographically normal COMPLICATIONS No Complications PROCEDURE MEDICATIONS Versed 1 mg IV Oxygen: 2 L/min via nasal cannula Plavix 75 mg PO 11/24/2019 07:15:57 SUMMARY OF HEMODYNAMIC DATA Time AIR REST ECG 07:18:16 AO 105/66 (82) SA 07:38:57 LV 124/11, 30 07:45:53 LV 128/0, 23 07:46:00 LV 133/4, 23 07:46:52 LV 131/1, 23 07:46:58 LVp 133/2, 16 07:47:03 AOp 136/74 (98) 07:47:08 Signed By Maik Milian MD On 11/24/2019 8:01:40 AM Maik Milian MD
--- NOTE | 2019-11-24 08:03 | PN.CARD_ITS ---
Subjectve: The patient is now status post diagnostic cardiac catheterization. He has no new acute complaints. Objective: Vital Signs Temp Pulse Resp BP Pulse Ox 98.7 F 83 26 H 143/72 H 97 11/24/19 06:00 11/24/19 06:43 11/24/19 06:00 11/24/19 06:00 11/24/19 06:50 Oxygen Flow Rate (L/min) 1 Oxygen Delivery Method Nasal Cannula Weight: 211 lb 10.3 oz Body Mass Index (BMI) 31.6 Intake and Output for Last 24 Hours 11/22/19 11/23/19 11/24/19 23:59 23:59 23:59 Intake Total 689.08 / 689.08 1443.00 / 1443.00 20.25 / 20.25 Output Total 3725 / 3725 1300 / 1300 550 / 550 Balance -3035.92 / -3035.92 143.00 / 143.00 -529.75 / -529.75 General: Awake, Alert, Oriented x 3, No Acute Distress HEENT: Atraumatic, Normocephalic, PERRL, EOMI, Sclera Non Icteric Neck: Supple, Good ROM Lungs: Clear to auscultation Cardiovascular: Irregular Rhythm, Normal S1, Normal S2 Abdomen: Bowel Sounds Present, Soft, Non Tender Extremities: No edema Psych/Mental Status: Flat Affect 11/24/19 05:56: WBC 10.4, RBC 4.07 L, Hgb 13.0, Hct 40.6, MCV 99.8 H, MCH 31.9, MCHC 32.0, Plt Count 280, MPV 10.5, Immature Gran % (Auto) 1.000 H, Neut % (Auto) 51.8, Lymph % (Auto) 36.3, [place] % (Auto) 9.6, Eos % (Auto) 1.0, Baso % (Auto) 0.3, Absolute Neuts (auto) 5.4, Nucleated RBC % 0 11/24/19 05:56: Sodium 140, Potassium 4.1, Chloride 109 H, Carbon Dioxide 26.0, Anion Gap 5, BUN 22 H, Creatinine 0.89, Est GFR (MDRD) Af Amer 116, Est GFR (MDRD) Non-Af 96, BUN/Creatinine Ratio 24.6 H, Glucose 97, Calcium 8.1 L, Total Bilirubin 0.60, Direct Bilirubin 0.20 11/24/19 05:56: PT 13.8, INR 1.1 Rhythm: Atrial fibrillation/flutter Medical Necessity - Tobacco Use Smoking Status: Light Smoker (<10/day) Tobacco Use: Cigarettes Assessment/Plan 1. Atrial fibrillation/flutter The patient presents with atrial fibrillation/flutter. It is unclear how long he has been having these events. Based upon his hospital stay it appears he is gone in and out of atrial fibrillation/flutter versus sinus rhythm. The etiology is unclear. There is concern this could be related to not only his age but a combination of underlying cardiovascular disease, his COPD, as well as his history of illicit drug use with cocaine use. At the present time he will need to continue attempts at rate control therapy, antiarrhythmic therapy, and continue with anticoagulant therapy with adjustment as deemed appropriate. He is already undergone evaluation with cardiac enzymes which were indeterminant. He has had an echocardiogram performed. He has had a chest x- ray performed. 2. Non-ST segment elevation [place] The patient does have abnormal cardiac enzymes concerning for non-ST segment elevation [place]. It is unclear whether this is a type I event from underlying atherosclerotic coronary artery disease versus being related to his recent cocaine use versus being a type II event being brought out by his atrial dysrhythmia with rapid ve ntricular response. The patient has now undergone further evaluation with diagnostic cardiac catheterization. He appeared to have angiographically normal-appearing coronary arteries. Thus his event appears to be a type II event potentially brought out by his combination of cardiac dysrhythmia as well as potentially a contribution from his illicit drug use/cocaine use. He will continue medical therapy as deemed appropriate. 3. Cardiomyopathy Based on the patient's cardiac catheterization and left ventriculogram it appears he has a somewhat globally hypokinetic left ventricle with diminished LV systolic function/LVEF. This may be secondary to his atrial dysrhythmia with rapid ventricular response. At the moment he will continue medical management for his atrial dysrhythmia and associated cardiovascular concerns and noncardiac concerns. 3. COPD He does have a history of COPD. He should continue evaluation care per internal medicine. 4. Tobacco use He has also been counseled on the need to discontinue all tobacco products. 5. Illicit drug use He does admit to taking cocaine. This could be a contributing factor to his symptoms and his objective findings. He has been counseled on the need to discontinue all illicit drug use. Comment: The above has been discussed and reviewed with the patient. This note was generated using a voice recognition system and there may be incorrect words, spelling or punctuation that were not noted when reviewing the office note prior to saving.
[2019-11-24] MEDS: 0.9% Normal Saline 1,000 ML 75 ML IV (08:15)
[2019-11-24] MEDS: Digoxin 250 MCG/ML Ampul 500 MCG IV (08:23)
[2019-11-24] MEDS: Amiodarone 360 MG in Dextrose 5% Viaflo Bag 192.8 ML 16.7 MG CONT INF ×2 (09:53→22:07)
--- NOTE | 2019-11-24 10:15 | NURSING ---
Pt notcompliant with post op cath instructions. This RN and desktop support technician explained to pt the increased risk of bleeding if he were to get about. Pt continued to yell that he would have a bowel movement in bed and proceeded to get up to bedside comide. Pt back in bed with HOB at 30 degree angle. No signs of bleeding, hematoma or complications to the cath site.
--- NOTE | 2019-11-24 10:47 | PN_ITS ---
<Sandra Burt - Last Filed: 11/24/19 10:57> Patient Problems: Active and Suspected Problems (Last Updated 11/24/19 @ 09:31 by Dalia Joyce) Atrial fibrillation with rapid ventricular response (Acute) Pneumonia (Acute) Atrial fibrillation and flutter (Acute) NSTEMI (non-ST elevated myocardial infarction) (Acute) Illicit drug use (Acute) Cardiomyopathy (Acute) Subjective: Patient seen and examined. Denies shortness of breath. Denies chest pain, palpitations. Underwent heart cath this morning which showed nonobstructive coronary arteries. - Physical Exam Vitals/I&O's: Vital Signs Temp Pulse Resp BP Pulse Ox 98.1 F 114 H 30 H 140/53 H 93 11/24/19 10:30 11/24/19 10:30 11/24/19 10:30 11/24/19 10:30 11/24/19 10:30 Oxygen Flow Rate (L/min) 1 Oxygen Delivery Method Room Air Weight: 211 lb 10.3 oz Body Mass Index (BMI) 31.6 Intake and Output for Last 24 Hours 11/22/19 11/23/19 11/24/19 23:59 23:59 23:59 Intake Total 689.08 / 689.08 1443.00 / 1443.00 222.20 / 222.20 Output Total 3725 / 3725 1300 / 1300 550 / 550 Balance -3035.92 / -3035.92 143.00 / 143.00 -327.80 / -327.80 General: Alert, Oriented x3, Cooperative HEENT: Atraumatic, PERRLA, EOMI, Normocephalic Neck: Supple, No JVD, Negative Carotid Bruits Lungs: Clear to auscultation, Diminished Cardiovascular: Tachycardic, - - A. fib/a flutter Abdomen: Bowel Sounds Present, Soft, Non Tender, Non-Distended Extremities: No edema, Capillary Refill Less than 3 Seconds Skin: No rashes, No breakdown Musculoskeletal: No Tenderness to Palpation of Joints or Extremities Neurological: Cranial nerves II-XII grossly intact, Neuro grossly intact Psych/Mental Status: Flat Affect Microbiology Past 72 Hours 11/21/19 14:56 Blood Culture (Wb) - Anticubital Left Blood Culture - Preliminary No growth in 48 hours. 11/21/19 12:45 Blood Culture (Wb) - Anticubital Left Blood Culture - Preliminary No growth in 48 hours. Laboratory Results 11/24/19 05:56: WBC 10.4, RBC 4.07 L, Hgb 13.0, Hct 40.6, MCV 99.8 H, MCH 31.9, MCHC 32.0, RDW Std Deviation 46.5 H, RDW Coeff of Aron 12.8, Plt Count 280, MPV 10.5, Immature Gran % (Auto) 1.000 H, Neut % (Auto) 51.8, Lymph % (Auto) 36.3, [place] % (Auto) 9.6, Eos % (Auto) 1.0, Baso % (Auto) 0.3, Absolute Neuts (auto) 5.4, Absolute Lymphs (auto) 3.79, Nucleated RBC % 0 11/24/19 05:56: Sodium 140, Potassium 4.1, Chloride 109 H, Carbon Dioxide 26.0, Anion Gap 5, BUN 22 H, Creatinine 0.89, Estim Creat Clear Calc 103.67, Est GFR (MDRD) Af Amer 116, Est GFR (MDRD) Non-Af 96, BUN/Creatinine Ratio 24.6 H, Glucose 97, Calcium 8.1 L, Total Bilirubin 0.60, Direct Bilirubin 0.20, AST 18, ALT 25, Alkaline Phosphatase 69, Total Protein 6.1 L, Albumin 2.5 L, Globulin 3.6 11/24/19 05:56: PT 13.8, INR 1.1 Current Medications Acetaminophen (Tylenol) 650 mg PO Q6H PRN PRN PRN Reason: Pain Score 1-10/Temp > 100.7 F Albuterol Sulfate (Ventolin Aerosols) 2.5 mg INHALATION Q2H PRN PRN PRN Reason: SHORTNESS OF BREATH Aspirin (Ecotrin) 81 mg PO DAILY@0800 [facility] Last Admin: 11/24/19 05:33 Dose: 81 mg Documented by: Dextrose (D50w Syringe) 0 gm IV X1 PRN; Protocol PRN Reason: Hypoglycemia Enoxaparin Sodium (Lovenox) 100 mg 1 mg/kg (100 mg) SC Q12@0600,1800 [facility] Last Admin: 11/23/19 23:53 Dose: Not Given Documented by: Glucagon () 1 mg IM .X1 PRN PRN Reason: Hypoglycemia Heparin Sodium (Beef Lung) (Heparin 500 Unit/5 Ml (100/Ml)) 500 unit IV UD PRN PRN Reason: HEPARIN FLUSH Sodium Chloride () 1,000 mls @ 15 mls/hr IV .Q48H [facility] Last Infusion: 11/24/19 05:34 Dose: 0 mls/hr Documented by: Sodium Chloride () 1,000 mls @ 75 mls/hr IV .[id number] [facility] Last Admin: 11/24/19 08:15 Dose: 75 mls/hr Documented by: Amiodarone HCl 360 mg/ (Dextrose) 200 mls @ 16.667 mls/hr CONT INF .Q12H [facility] Last Infusion: 11/24/19 10:00 Dose: 0.5 mg/min, 16.7 mls/hr Documented by: Labetalol HCl (Trandate) 5 mg IV X1 PRN PRN Reason: SBP > 160 prior to sheath pull Stop: 11/26/19 07:52 Metoprolol Tartrate (Lopressor (Beta Millicent)) 25 mg PO BID [facility] Last Admin: 11/24/19 05:33 Dose: 25 mg Documented by: Nicotine (Nicoderm Cq (Pbkc)) 7 mg TRANSDERM. DAILY [facility] Last Admin: 11/24/19 05:34 Dose: Not Given Documented by: Ondansetron HCl (Zofran) 4 mg IV Q8H PRN PRN PRN Reason: NAUSEA/VOMITING Sodium Chloride () 10 - 40 ml IV UD PRN PRN Reason: SALINE FLUSH Last Admin: 11/23/19 11:54 Dose: 10 ml Documented by: Medical Necessity - Tobacco Use Smoking Status: Light Smoker (<10/day) Tobacco Use: Cigarettes Assessment/Plan All Active Problems (Last Updated 11/24/19 @ 09:31 by Dalia Joyce) Atrial fibrillation with rapid ventricular response (Acute) Pneumonia (Acute) Atrial fibrillation and flutter (Acute) NSTEMI (non-ST elevated myocardial infarction) (Acute) Illicit drug use (Acute) Cardiomyopathy (Acute) 1. Atrial fibrillation with RVR/atrial flutter-on amiodarone drip and metoprolol 25 mg p.o. twice daily. Cardiology consulted. On therapeutic Lovenox. Rate remains tachycardic. 2. Acute heart failure with reduced ejection fraction-BNP 644. IV Lasix on admission, further Lasix discontinued due to increased creatinine. Strict I&O. Daily weight. Echocardiogram demonstrates an EF of 45%, moderate mitral valve insufficiency, pulmonary artery systolic pressure 40 mmHg. 3. Indeterminate troponin-demand ischemia related to #1. Patient underwent cardiac catheterization which showed normal coronary arteries. 4. Chronic COPD- no exacerbation. PRN albuterol aerosol. 5. Tobacco dependence-continues to smoke. Nicotine replacement patch if desired. 6. Cocaine use-denies other drug use. Tox screen positive for cocaine. DVT prophylaxis-Lovenox subcu This patient was seen by JONAH Knox under the supervision of . <Leann Lee - Last Filed: 11/24/19 13:52> Subjective: The following is a reflection of my independent history and exam Pt states that he is feeling fine. Denies SOB. No CP. No issues since cath this am. - Physical Exam Vitals/I&O's: Vital Signs Temp Pulse Resp BP Pulse Ox 98.9 F 91 26 H 129/69 H 95 11/24/19 13:30 11/24/19 13:30 11/24/19 13:30 11/24/19 13:30 11/24/19 13:30 Oxygen Flow Rate (L/min) 1 Oxygen Delivery Method Nasal Cannula Weight: 96 kg Body Mass Index (BMI) 31.6 Intake and Output for Last 24 Hours 11/22/19 11/23/19 11/24/19 23:59 23:59 23:59 Intake Total 689.08 / 689.08 1443.00 / 1443.00 860.60 / 860.60 Output Total 3725 / 3725 1300 / 1300 850 / 850 Balance -3035.92 / -3035.92 143.00 / 143.00 10.60 / 10.60 General: Alert, Oriented x3, Cooperative, No apparent distress, Well developed, Well nourished, - - WM lying in bed sleeping but awakens easily HEENT: Atraumatic, PERRLA, EOMI, Normocephalic, EAC Clear Oral: Moist Mucosa, No Gingival or Mucosal Lesions/ Ulcerations Neck: Supple, No JVD, No Nodes, Trachea Midline Lungs: Clear to auscultation, Normal air movement, No rhonchi, No wheeze, No rales Cardiovascular: Normal S1, Normal S2, No murmurs, No Ectopic Activity, No rub noted, No Gallop, Tachycardic, - - irreg rhythm Abdomen: Bowel Sounds Present, Soft, Non Tender, Non-Distended Extremities: No clubbing, No cyanosis, No edema, Capillary Refill Less than 3 Seconds, No Calf Tenderness Skin: No rashes, No breakdown Musculoskeletal: No Tenderness to Palpation of Joints or Extremities Neurological: Neuro grossly intact Psych/Mental Status: Appropriate, Flat Affect, Alert and oriented to time, place, person, mood and affect Microbiology Past 72 Hours 11/21/19 14:56 Blood Culture (Wb) - Anticubital Left Blood Culture - Preliminary No growth in 48 hours. 11/21/19 12:45 Blood Culture (Wb) - Anticubital Left Blood Culture - Preliminary No growth in 48 hours. Laboratory Results 11/24/19 05:56: WBC 10.4, RBC 4.07 L, Hgb 13.0, Hct 40.6, MCV 99.8 H, MCH 31.9, MCHC 32.0, RDW Std Deviation 46.5 H, RDW Coeff of Aron 12.8, Plt Count 280, MPV 10.5, Immature Gran % (Auto) 1.000 H, Neut % (Auto) 51.8, Lymph % (Auto) 36.3, [place] % (Auto) 9.6, Eos % (Auto) 1.0, Baso % (Auto) 0.3, Absolute Neuts (auto) 5.4, Absolute Lymphs (auto) 3.79, Nucleated RBC % 0 11/24/19 05:56: Sodium 140, Potassium 4.1, Chloride 109 H, Carbon Dioxide 26.0, Anion Gap 5, BUN 22 H, Creatinine 0.89, Estim Creat Clear Calc 103.67, Est GFR (MDRD) Af Amer 116, Est GFR (MDRD) Non-Af 96, BUN/Creatinine Ratio 24.6 H, Glucose 97, Calcium 8.1 L, Total Bilirubin 0.60, Direct Bilirubin 0.20, AST 18, ALT 25, Alkaline Phosphatase 69, Total Protein 6.1 L, Albumin 2.5 L, Globulin 3.6 11/24/19 05:56: PT 13.8, INR 1.1 Current Medications Acetaminophen (Tylenol) 650 mg PO Q6H PRN PRN PRN Reason: Pain Score 1-10/Temp > 100.7 F Albuterol Sulfate (Ventolin Aerosols) 2.5 mg INHALATION Q2H PRN PRN PRN Reason: SHORTNESS OF BREATH Aspirin (Ecotrin) 81 mg PO DAILY@0800 [facility] Last Admin: 11/24/19 05:33 Dose: 81 mg Documented by: Dextrose (D50w Syringe) 0 gm IV X1 PRN; Protocol PRN Reason: Hypoglycemia Enoxaparin Sodium (Lovenox) 100 mg 1 mg/kg (100 mg) SC Q12@0600,1800 [facility] Last Admin: 11/23/19 23:53 Dose: Not Given Documented by: Glucagon () 1 mg IM .X1 PRN PRN Reason: Hypoglycemia Heparin Sodium (Beef Lung) (Heparin 500 Unit/5 Ml (100/Ml)) 500 unit IV UD PRN PRN Reason: HEPARIN FLUSH Sodium Chloride () 1,000 mls @ 15 mls/hr IV .Q48H [facility] Last Infusion: 11/24/19 05:34 Dose: 0 mls/hr Documented by: Amiodarone HCl 360 mg/ (Dextrose) 200 mls @ 16.667 mls/hr CONT INF .Q12H [facility] Last Infusion: 11/24/19 12:00 Dose: 0.5 mg/min, 16.7 mls/hr Documented by: Diltiazem HCl 125 mg/ Dextrose 125 mls @ 10 mls/hr IV .[id number] [facility] Last Infusion: 11/24/19 13:30 Dose: 10 mg/hr, 10 mls/hr Documented by: Labetalol HCl (Trandate) 5 mg IV X1 PRN PRN Reason: SBP > 160 prior to sheath pull Stop: 11/26/19 07:52 Metoprolol Tartrate (Lopressor (Beta Millicent)) 25 mg PO BID [facility] Last Admin: 11/24/19 05:33 Dose: 25 mg Documented by: Nicotine (Nicoderm Cq (Pbkc)) 7 mg TRANSDERM. DAILY [facility] Last Admin: 11/24/19 05:34 Dose: Not Given Documented by: Ondansetron HCl (Zofran) 4 mg IV Q8H PRN PRN PRN Reason: NAUSEA/VOMITING Sodium Chloride () 10 - 40 ml IV UD PRN PRN Reason: SALINE FLUSH Last Admin: 11/24/19 11:09 Dose: 10 ml Documented by: Assessment/Plan The following is a reflection of my own independent history and exam ASSESSMENT A-fib with RVR HFrEF SHAQ Indeterminate troponin (? NSTEMI 1 vs 2) COPD Macrocytosis -Obesity (BMI 30.5) Cocaine Abuse (10-15 yrs) Tobacco Abuse (3-4 cig/day) PLAN -Cath done this am and neg for CAD so EF depression is likely related to cocaine and tachy mediated -has had Cardizem earlier without response--> would avoid with lower EF -was given dig today and metorprolol is 25 mg BID as well as a cardizem ggt -[id number] is 1 with his depressed EF -Lovenox 100 BID -NOAC? at d/c -wean O2 as able--> noted desaturation with sleep--> pt likely needs PSG as outpt -Labs reviewed and stable -recommend wgt loss Inpatient E&M: [id number] Subs Hosp L2
[2019-11-24] MEDS: 0.9% Saline Lock 10 ML Syringe IV (11:09)
[2019-11-24] MEDS: LORazepam 2 MG/ML Syringe 1 MG IV (11:09)
[2019-11-24] MEDS: dilTIAZem 25 MG/5 ML Vial 20 MG IV BOLUS (12:53)
--- NOTE | 2019-11-24 13:05 | NURSING ---
Pt up to walk at bedside in room. No signs of complications to right groin/heart cath site. No bleeding or hematoma noted.
--- NOTE | 2019-11-24 18:36 | EKG12_ITS ---
Test Reason : A-FIB Blood Pressure : / mmHG Vent. Rate : 143 BPM Atrial Rate : 131 BPM P-R Int : 000 ms QRS Dur : 092 ms QT Int : 290 ms P-R-T Axes : 000 100 008 degrees QTc Int : 447 ms Poor data quality, interpretation may be adversely affected Atrial Flutter with Variable Block Septal infarct , age undetermined Abnormal ECG When compared with ECG of 21-NOV-2019 23:59, MANUAL COMPARISON REQUIRED, DATA IS UNCONFIRMED Confirmed by DAVID LAUREANO, SHANELL ([id number]), photographic editor BRIAN MANZO ([id number]) on 11/29/2019 1:29:41 PM Referred By: MARIA FERNANDA Confirmed By:SHANELL HERNANDEZ MD
[2019-11-24] MEDS: HEPARIN/D5w 25,000 UNITS 25,000 UNITS/250 ML IV.SOLN. 14 UNITS IV (20:20)
[2019-11-24 20:24] LABS: Absolute Lymphocyte Count 3.35 X10^3/uL (0.83-4.51); Absolute Neutrophil Count 8.8 X10^3/uL (2.0-7.7); Basophil# 0.04 X10^3/uL; Basophil% 0.3 % (0-1); Eosinophil# 0.06 X10^3/uL; Eosinophils% 0.4 % (0-5); Hematocrit 41.4 % (40-54); Hemoglobin 13.2 g/dL (13.0-16.5); Lymphocyte # 3.35 X10^3/ul (4.0); Lymphocyte % 24.7 % (19-41); Mean Corp Hgb Conc 31.9 g/dL (32-36); Mean Corpuscular Hgb 32.4 pg (27.0-32.0); Mean Corpuscular Volume 101.5 fL (80-94); Mean Platelet Vol. 10.1 fl (6.2-12.0); Monocyte# 1.24 X10^3/uL; Monocyte% 9.1 % (0-10); NRBC Flagged by Analyzer 0 % (0-5); Neutrophil # 8.78 X10^3/uL (2.7-7.7); Neutrophil % 64.7 % (47-70); Platelet Count 262 K/mm3 (150-450); RBC Distribution Width CV 12.8 % (11.6-14.6); RBC Distribution Width SD 47.4 fl (35.1-43.9); Red Blood Count 4.08 M/mm3 (4.6-6.2); White Blood Count 13.6 K/mm3 (4.4-11.0)
[2019-11-24 20:38] LABS: International Normalized Ratio 1.1
[2019-11-24 20:39] LABS: Partial Thromboplast Time 32.3 Seconds (24.1-36.2)
[2019-11-24] MEDS: Lisinopril 5 MG Tablet PO (22:08)
[2019-11-24] MEDS: Carvedilol 6.25 MG Tablet PO (22:08)
[2019-11-25] VITALS (20 sets, daily range): BP systolic 115–143; BP diastolic 46–93; PULSE 61–83; RESP 18–39; TEMP 36.8–38.2; O2SAT 93–98
[2019-11-25] MEDS: Acetaminophen 325 MG Tablet 650 MG PO (01:43)
[2019-11-25] MEDS: 0.9% Saline Lock 10 ML Syringe IV ×2 (02:27→03:04)
[2019-11-25 02:31] LABS: Hematocrit 40.3 % (40-54); Hemoglobin 13.3 g/dL (13.0-16.5)
[2019-11-25 02:41] LABS: Partial Thromboplast Time 50.3 Seconds (24.1-36.2)
[2019-11-25 02:46] LABS: Anion Gap 6 (5-15); BUN 18 mg/dL (7-18); BUN/Creat Ratio 18.7 RATIO (10-20); Calcium,Total 8.1 mg/dL (8.5-10.1); Chloride 106 mmol/L (98-107); Creatinine, Serum 0.96 mg/dL (0.70-1.30); EST Glomerular Filtration Rate 88 mL/min (>60); Est Glom Filt Rate - Afr Amer 107 mL/min (>60); Estimated Creatinine Clearance 96.11 ml/min; Glucose 119 mg/dL (74-106); Potassium 4.4 mmol/L (3.5-5.1); Sodium Level 137 mmol/L (136-145)
[2019-11-25] MEDS: Heparin Injection (Vial) 5,000 UNIT/ML VIAL IV (03:04)
[2019-11-25 03:08] LABS: Magnesium 2.1 mg/dL (1.6-2.6)
[2019-11-25] MEDS: Lisinopril 5 MG Tablet PO ×2 (08:17→21:59)
[2019-11-25] MEDS: Aspirin E.C. 81 MG Tablet PO (08:17)
[2019-11-25] MEDS: Carvedilol 6.25 MG Tablet PO (08:17)
[2019-11-25 09:57] LABS: Partial Thromboplast Time 72.3 Seconds (24.1-36.2)
[2019-11-25] MEDS: Amiodarone 200 MG Tablet PO ×3 (10:40→21:59)
[2019-11-25] MEDS: APIXABAN 5 MG TABLET PO ×2 (10:41→21:59)
--- NOTE | 2019-11-25 11:29 | PN.CARD_ITS ---
Subjectve: The patient states he does feel better today. He has not complained of ongoing chest discomfort or worsening shortness of breath/dyspnea. He still does not sense that his cardiac rate/rhythm has changed back to a normal sinus rhythm. Objective: Vital Signs Temp Pulse Resp BP Pulse Ox 98.4 F 68 22 H 116/59 L 96 11/25/19 10:00 11/25/19 10:30 11/25/19 10:30 11/25/19 10:30 11/25/19 10:30 Oxygen Flow Rate (L/min) 1 Oxygen Delivery Method Room Air Weight: 215 lb 9.793 oz Body Mass Index (BMI) 31.6 Intake and Output for Last 24 Hours 11/23/19 11/24/19 11/25/19 23:59 23:59 23:59 Intake Total 1443.00 / 1443.00 1525.00 / 2003.70 973.65 / 973.65 Output Total 1300 / 1300 1500 / 1900 1100 / 1100 Balance 143.00 / 143.00 25.00 / 103.70 -126.35 / -126.35 General: Awake, Alert, Oriented x 3, No Acute Distress HEENT: Atraumatic, Normocephalic, PERRL, EOMI, Sclera Non Icteric Neck: Supple, Good ROM, No JVD Lungs: Clear to auscultation Cardiovascular: Regular Rhythm, Normal S1, Normal S2 Vascular: Normal Femoral Pulses Abdomen: Bowel Sounds Present, Soft Extremities: No edema Neurological: No Focal Motor or Sensory Deficit Psych/Mental Status: Flat Affect 11/24/19 20:10: WBC 13.6 H, RBC 4.08 L, Hgb 13.2, Hct 41.4, MCV 101.5 H, MCH 32.4 H, MCHC 31.9 L, Plt Count 262, MPV 10.1, Immature Gran % (Auto) 0.800, Neut % (Auto) 64.7, Lymph % (Auto) 24.7, [place] % (Auto) 9.1, Eos % (Auto) 0.4, Baso % (Auto) 0.3, Absolute Neuts (auto) 8.8 H, Nucleated RBC % 0 11/24/19 20:10: PT 14.0, INR 1.1, APTT 32.3 11/25/19 02:20: Hgb 13.3, Hct 40.3 11/25/19 02:20: Sodium 137, Potassium 4.4, Chloride 106, Carbon Dioxide 25.0, Anion Gap 6, BUN 18, Creatinine 0.96, Est GFR (MDRD) Af Amer 107, Est GFR (MDRD) Non-Af 88, BUN/Creatinine Ratio 18.7, Glucose 119 H, Calcium 8.1 L 11/25/19 02:20: APTT 50.3 H 11/25/19 02:20: Magnesium 2.1 11/25/19 09:35: APTT 72.3 H Rhythm: Sinus rhythm Medical Necessity - Tobacco Use Smoking Status: Light Smoker (<10/day) Tobacco Use: Cigarettes Assessment/Plan 1. Atrial fibrillation/flutter The patient presents with atrial fibrillation/flutter. It is unclear how long he has been having these events. Based upon his hospital stay it appears he is gone in and out of atrial fibrillation/flutter versus sinus rhythm. The etiology is unclear. There is concern this could be related to not only his age but a combination of underlying cardiovascular disease, his COPD, as well as his history of illicit drug use with cocaine use. He has noted to have spontaneous conversion back to sinus rhythm. He will continue medical therapy with alteration of his IV medicines to oral medications for rate control, antiarrhythmic therapy, and anticoagulant therapy. 2. Non-ST segment elevation [place] The patient does have abnormal cardiac enzymes concerning for non-ST segment elevation [place]. Based upon his evaluation it appears this is a type II event as he was found to have angiographically unremarkable coronary arteries. He will continue medical therapy as deemed appropriate. 3. Cardiomyopathy Based on the patient's cardiac catheterization and left ventriculogram it appears he has a somewhat globally hypokinetic left ventricle with diminished LV systolic function/LVEF. This may be secondary to his atrial dysrhythmia with rapid ventricular response. At the moment he will continue medical management for his atrial dysrhythmia and associated cardiovascular concerns and noncardiac concerns. 3. COPD He does have a history of COPD. He should continue evaluation care per internal medicine. 4. Tobacco use He has also been counseled on the need to discontinue all tobacco products. 5. Illicit drug use He does admit to taking cocaine. This could be a contributing factor to his symptoms and his objective findings. He has been counseled on the need to discontinue all illicit drug use. Comment: The above has been discussed and reviewed with the patient and . This note was generated using a voice recognition system and there may be incorrect words, spelling or punctuation that were not noted when reviewing the office note prior to saving.
--- NOTE | 2019-11-25 12:39 | PN_ITS ---
<Blake Puentes - Last Filed: 11/25/19 12:39> Patient Problems: Active and Suspected Problems (Last Updated 11/24/19 @ 09:31 by Dalia Joyce) Atrial fibrillation with rapid ventricular response (Acute) Pneumonia (Acute) Atrial fibrillation and flutter (Acute) NSTEMI (non-ST elevated myocardial infarction) (Acute) Illicit drug use (Acute) Cardiomyopathy (Acute) Reason for Visit: Cole farooq RVR Subjective: Patient now in normal sinus rhythm. Denies palpitations, chest pain, shortness of breath. Patient did well overnight with no breathing issues. He is resting comfortably with only half of the nasal cannula in his nose and breathing without shortness of breath and with good oxygenation normal pulse ox. No lower extremity edema. Patient does not normally use oxygen at home Patient states that he has no complaints at this time and is anticipating discharge. Vitals/I&O's: Vital Signs Temp Pulse Resp BP Pulse Ox 98.4 F 68 22 H 116/59 L 98 11/25/19 10:00 11/25/19 10:30 11/25/19 10:30 11/25/19 10:30 11/25/19 11:42 Oxygen Flow Rate (L/min) 1 Oxygen Delivery Method Room Air Weight: 215 lb 9.793 oz Body Mass Index (BMI) 31.6 Intake and Output for Last 24 Hours 11/23/19 11/24/19 11/25/19 23:59 23:59 23:59 Intake Total 1443.00 / 1443.00 1525.00 / 2003.70 1213.65 / 1213.65 Output Total 1300 / 1300 1500 / 1900 1100 / 1100 Balance 143.00 / 143.00 25.00 / 103.70 113.65 / 113.65 General: Alert, Oriented x3, Cooperative HEENT: Atraumatic, PERRLA, EOMI, Normocephalic Neck: Supple, No JVD, Negative Carotid Bruits Lungs: Clear to auscultation, Normal air movement Cardiovascular: Regular rate, No murmurs Abdomen: Bowel Sounds Present, Soft, Non Tender Extremities: No edema, Capillary Refill Less than 3 Seconds Skin: No rashes, No breakdown Musculoskeletal: No Tenderness to Palpation of Joints or Extremities Neurological: Cranial nerves II-XII grossly intact Psych/Mental Status: Normal Affect, Appropriate, Alert and oriented to time, place, person, mood and affect Microbiology Past 72 Hours 11/21/19 14:56 Blood Culture (Wb) - Anticubital Left Blood Culture - Preliminary No growth in 48 hours. 11/21/19 12:45 Blood Culture (Wb) - Anticubital Left Blood Culture - Preliminary No growth in 48 hours. Laboratory Results 11/24/19 20:10: WBC 13.6 H, RBC 4.08 L, Hgb 13.2, Hct 41.4, MCV 101.5 H, MCH 32.4 H, MCHC 31.9 L, RDW Std Deviation 47.4 H, RDW Coeff of Aron 12.8, Plt Count 262, MPV 10.1, Immature Gran % (Auto) 0.800, Neut % (Auto) 64.7, Lymph % (Auto) 24.7, [place] % (Auto) 9.1, Eos % (Auto) 0.4, Baso % (Auto) 0.3, Absolute Neuts (auto) 8.8 H, Absolute Lymphs (auto) 3.35, Nucleated RBC % 0 11/24/19 20:10: PT 14.0, INR 1.1, APTT 32.3 11/25/19 02:20: Hgb 13.3, Hct 40.3 11/25/19 02:20: Sodium 137, Potassium 4.4, Chloride 106, Carbon Dioxide 25.0, Anion Gap 6, BUN 18, Creatinine 0.96, Estim Creat Clear Calc 96.11, Est GFR (MDRD) Af Amer 107, Est GFR (MDRD) Non-Af 88, BUN/Creatinine Ratio 18.7, Glucose 119 H, Calcium 8.1 L 11/25/19 02:20: APTT 50.3 H 11/25/19 02:20: Magnesium 2.1 11/25/19 09:35: APTT 72.3 H Current Medications Acetaminophen (Tylenol) 650 mg PO Q6H PRN PRN PRN Reason: Pain Score 1-10/Temp > 100.7 F Last Admin: 11/25/19 01:43 Dose: 650 mg Documented by: Albuterol Sulfate (Ventolin Aerosols) 2.5 mg INHALATION Q2H PRN PRN PRN Reason: SHORTNESS OF BREATH Amiodarone HCl (Cordarone) 200 mg PO TID KENNETH Stop: 12/01/19 22:01 Last Admin: 11/25/19 10:40 Dose: 200 mg Documented by: Amiodarone HCl (Cordarone) 200 mg PO BID [facility] Stop: 12/15/19 22:01 Amiodarone HCl (Cordarone) 200 mg PO DAILY [facility] Apixaban (Eliquis) 5 mg PO BID [facility] Last Admin: 11/25/19 10:41 Dose: 5 mg Documented by: Aspirin (Ecotrin) 81 mg PO DAILY@0800 [facility] Last Admin: 11/25/19 08:17 Dose: 81 mg Documented by: Carvedilol (Coreg) 12.5 mg PO BID [facility] Dextrose (D50w Syringe) 0 gm IV X1 PRN; Protocol PRN Reason: Hypoglycemia Glucagon () 1 mg IM .X1 PRN PRN Reason: Hypoglycemia Heparin Sodium (Beef Lung) (Heparin 500 Unit/5 Ml (100/Ml)) 500 unit IV UD PRN PRN Reason: HEPARIN FLUSH Sodium Chloride () 1,000 mls @ 15 mls/hr IV .Q48H [facility] Last Infusion: 11/24/19 05:34 Dose: 0 mls/hr Documented by: Sodium Chloride () 1,000 mls @ 0 mls/hr IV .Q0M [facility] Labetalol HCl (Trandate) 5 mg IV X1 PRN PRN Reason: SBP > 160 prior to sheath pull Stop: 11/26/19 07:52 Lisinopril (Zestril) 5 mg PO BID [facility] Last Admin: 11/25/19 08:17 Dose: 5 mg Documented by: Nicotine (Nicoderm Cq (Pbkc)) 7 mg TRANSDERM. DAILY [facility] Last Admin: 11/25/19 10:41 Dose: Not Given Documented by: Ondansetron HCl (Zofran) 4 mg IV Q8H PRN PRN PRN Reason: NAUSEA/VOMITING Sodium Chloride () 10 - 40 ml IV UD PRN PRN Reason: SALINE FLUSH Last Admin: 11/25/19 03:04 Dose: 10 ml Documented by: STROKE Vital Signs/Narrative: Vital Signs Temp Pulse Resp BP Pulse Ox Pulse Ox Pulse Ox 11/25/19 11:42 95 98 11/25/19 10:30 68 22 H 116/59 L 96 11/25/19 10:00 98.4 F 67 20 H 115/50 L 96 11/25/19 09:00 67 24 H 122/55 H 95 Medical Necessity - Tobacco Use Smoking Status: Light Smoker (<10/day) Tobacco Use: Cigarettes Assessment/Plan All Active Problems (Last Updated 11/24/19 @ 09:31 by Dalia Joyce) Atrial fibrillation with rapid ventricular response (Acute) Pneumonia (Acute) Atrial fibrillation and flutter (Acute) NSTEMI (non-ST elevated myocardial infarction) (Acute) Illicit drug use (Acute) Cardiomyopathy (Acute) 1. A. fib RVR-now in normal sinus rhythm. Possibly cocaine induced. Coreg, amiodarone drip converted to oral taper. Continue Eliquis. Cardiology following. Heart catheterization with normal coronaries yesterday. Echocardiogram demonstrates ejection fraction of 45%, PASP of 40 mmHg. 2. Indeterminate troponin-demand ischemia secondary to above. 3. Chronic COPD, no exacerbation-PRN aerosols. 4. Nicotine abuse-continue nicotine patch, encourage complete cessation 5. History of cocaine abuse-Tox read positive. Likely contributing to #1 DVT prophylaxis: Eliquis Discharge planning: Patient will be maintained on telemetry overnight to make sure that he remains in normal sinus rhythm now that he is on oral medications only. This patient was seen by Blake Puentes PA-C under the supervision of <Leann Lee - Last Filed: 11/25/19 13:47> Vitals/I&O's: Vital Signs Temp Pulse Resp BP Pulse Ox 98.4 F 68 22 H 116/59 L 98 11/25/19 10:00 11/25/19 10:30 11/25/19 10:30 11/25/19 10:30 11/25/19 11:42 Oxygen Flow Rate (L/min) 1 Oxygen Delivery Method Room Air Weight: 97.8 kg Body Mass Index (BMI) 31.6 Intake and Output for Last 24 Hours 11/23/19 11/24/19 11/25/19 23:59 23:59 23:59 Intake Total 1443.00 / 1443.00 1525.00 / 2003.70 1213.65 / 1213.65 Output Total 1300 / 1300 1500 / 1900 1100 / 1100 Balance 143.00 / 143.00 25.00 / 103.70 113.65 / 113.65 General: Alert, Oriented x3, Cooperative, - - lying in bed sleeping but awakens easily Lungs: Clear to auscultation, Normal air movement, No rhonchi, No wheeze, No rales Cardiovascular: Regular rate, Regular Rhythm, Normal S1, Normal S2, No murmurs, No Ectopic Activity, No rub noted, No Gallop Abdomen: Bowel Sounds Present, Soft, Non Tender, Non-Distended Extremities: No clubbing, No cyanosis, No edema, Capillary Refill Less than 3 Seconds, Peripheral Pulses Normal Psych/Mental Status: Normal Affect, Appropriate, Alert and oriented to time, place, person, mood and affect Microbiology Past 72 Hours 11/21/19 14:56 Blood Culture (Wb) - Anticubital Left Blood Culture - Prel iminary No growth in 48 hours. 11/21/19 12:45 Blood Culture (Wb) - Anticubital Left Blood Culture - Preliminary No growth in 48 hours. Laboratory Results 11/24/19 20:10: WBC 13.6 H, RBC 4.08 L, Hgb 13.2, Hct 41.4, MCV 101.5 H, MCH 32.4 H, MCHC 31.9 L, RDW Std Deviation 47.4 H, RDW Coeff of Aron 12.8, Plt Count 262, MPV 10.1, Immature Gran % (Auto) 0.800, Neut % (Auto) 64.7, Lymph % (Auto) 24.7, [place] % (Auto) 9.1, Eos % (Auto) 0.4, Baso % (Auto) 0.3, Absolute Neuts (auto) 8.8 H, Absolute Lymphs (auto) 3.35, Nucleated RBC % 0 11/24/19 20:10: PT 14.0, INR 1.1, APTT 32.3 11/25/19 02:20: Hgb 13.3, Hct 40.3 11/25/19 02:20: Sodium 137, Potassium 4.4, Chloride 106, Carbon Dioxide 25.0, A nion Gap 6, BUN 18, Creatinine 0.96, Estim Creat Clear Calc 96.11, Est GFR (MDRD) Af Amer 107, Est GFR (MDRD) Non-Af 88, BUN/Creatinine Ratio 18.7, Glucose 119 H, Calcium 8.1 L 11/25/19 02:20: APTT 50.3 H 11/25/19 02:20: Magnesium 2.1 11/25/19 09:35: APTT 72.3 H Current Medications Acetaminophen (Tylenol) 650 mg PO Q6H PRN PRN PRN Reason: Pain Score 1-10/Temp > 100.7 F Last Admin: 11/25/19 01:43 Dose: 650 mg Documented by: Albuterol Sulfate (Ventolin Aerosols) 2.5 mg INHALATION Q2H PRN PRN PRN Reason: SHORTNESS OF BREATH Amiodarone HCl (Cordarone) 200 mg PO TID [facility] Stop: 12/01/19 22:01 Last Admin: 11/25/19 10:40 Dose: 200 mg Documented by: Amiodarone HCl (Cordarone) 200 mg PO BID [facility] Stop: 12/15/19 22:01 Amiodarone HCl (Cordarone) 200 mg PO DAILY [facility] Apixaban (Eliquis) 5 mg PO BID [facility] Last Admin: 11/25/19 10:41 Dose: 5 mg Documented by: Aspirin (Ecotrin) 81 mg PO DAILY@0800 [facility] Last Admin: 11/25/19 08:17 Dose: 81 mg Documented by: Carvedilol (Coreg) 12.5 mg PO BID [facility] Dextrose (D50w Syringe) 0 gm IV X1 PRN; Protocol PRN Reason: Hypoglycemia Glucagon () 1 mg IM .X1 PRN PRN Reason: Hypoglycemia Heparin Sodium (Beef Lung) (Heparin 500 Unit/5 Ml (100/Ml)) 500 unit IV UD PRN PRN Reason: HEPARIN FLUSH Sodium Chloride () 1,000 mls @ 15 mls/hr IV .Q48H [facility] Last Infusion: 11/24/19 05:34 Dose: 0 mls/hr Documented by: Sodium Chloride () 1,000 mls @ 0 mls/hr IV .Q0M [facility] Labetalol HCl (Trandate) 5 mg IV X1 PRN PRN Reason: SBP > 160 prior to sheath pull Stop: 11/26/19 07:52 Lisinopril (Zestril) 5 mg PO BID [facility] Last Admin: 11/25/19 08:17 Dose: 5 mg Documented by: Nicotine (Nicoderm Cq (Pbkc)) 7 mg TRANSDERM. DAILY [facility] Last Admin: 11/25/19 10:41 Dose: Not Given Documented by: Ondansetron HCl (Zofran) 4 mg IV Q8H PRN PRN PRN Reason: NAUSEA/VOMITING Sodium Chloride () 10 - 40 ml IV UD PRN PRN Reason: SALINE FLUSH Last Admin: 11/25/19 03:04 Dose: 10 ml Documented by: STROKE Vital Signs/Narrative: Vital Signs Temp Pulse Resp BP Pulse Ox Pulse Ox Pulse Ox 11/25/19 11:42 95 98 11/25/19 10:30 68 22 H 116/59 L 96 11/25/19 10:00 98.4 F 67 20 H 115/50 L 96 Assessment/Plan ASSESSMENT A-fib with RVR HFrEF SHAQ Indeterminate troponin (? NSTEMI 1 vs 2) COPD Macrocytosis -Obesity (BMI 30.5) Cocaine Abuse (10-15 yrs) Tobacco Abuse (3-4 cig/day) PLAN -Cath done 11/23 and neg for CAD so EF depression is likely related to cocaine and tachy mediated -now in NSR as of yesterday afternoon -converting to PO meds from IV ggts -NOAC started -wean O2 to off -D/C tomorrow if remains stable off ggts Inpatient E&M: 03027 Subs Hosp L2
[2019-11-25] MEDS: Carvedilol 12.5 MG Tablet PO (21:59)
[2019-11-26] VITALS (11 sets, daily range): BP systolic 118–130; BP diastolic 49–64; PULSE 65–78; RESP 16–18; TEMP 36.8–37.3; O2SAT 93–97
[2019-11-26] MEDS: Amiodarone 200 MG Tablet PO ×3 (05:54→21:19)
--- NOTE | 2019-11-26 08:11 | PCM.PN.CARD ---
Subjectve: The patient appears to be resting comfortably at this time. Objective: Vital Signs Temp Pulse Resp BP Pulse Ox 98.4 F 67 18 130/57 H 93 11/26/19 05:50 11/26/19 07:09 11/26/19 05:50 11/26/19 05:50 11/26/19 05:50 Oxygen Flow Rate (L/min) 1 Oxygen Delivery Method Room Air Weight: 218 lb 4.122 oz Body Mass Index (BMI) 31.6 Intake and Output for Last 24 Hours 11/24/19 11/25/19 11/26/19 23:59 23:59 23:59 Intake Total 1525.00 / 2003.70 1693.65 / 1693.65 120 / 120 Output Total 1500 / 1900 1100 / 1100 Balance 25.00 / 103.70 593.65 / 593.65 120 / 120 General: Cooperative, No Acute Distress Neck: No JVD Lungs: Clear to auscultation Cardiovascular: Regular Rhythm, Normal S1, Normal S2 Abdomen: Bowel Sounds Present, Soft Extremities: No edema Psych/Mental Status: Flat Affect 11/25/19 09:35: APTT 72.3 H Rhythm: Sinus rhythm Medical Necessity - Tobacco Use Smoking Status: Light Smoker (<10/day) Tobacco Use: Cigarettes Assessment/Plan 1. Atrial fibrillation/flutter The patient presents with atrial fibrillation/flutter. It is unclear how long he has been having these events. Based upon his hospital stay it appears he is gone in and out of atrial fibrillation/flutter versus sinus rhythm. The etiology is unclear. There is concern this could be related to not only his age but a combination of underlying cardiovascular disease, his COPD, as well as his history of illicit drug use with cocaine use. He has noted to have spontaneous conversion back to sinus rhythm. He is continuing medical therapy at this time with beta-blockers, and amiodarone taper, and anticoagulant therapy. 2. Non-ST segment elevation WA The patient does have abnormal cardiac enzymes concerning for non-ST segment elevation WA. Based upon his evaluation it appears this is a type II event as he was found to have angiographically unremarkable coronary arteries. He will continue medical therapy as deemed appropriate. 3. Cardiomyopathy Based on the patient's cardiac catheterization and left ventriculogram it appears he has a somewhat globally hypokinetic left ventricle with diminished LV systolic function/LVEF. This may be secondary to his atrial dysrhythmia with rapid ventricular response. At the moment he will continue medical management for his atrial dysrhythmia and associated cardiovascular concerns and noncardiac concerns. 3. COPD He does have a history of COPD. He should continue evaluation care per internal medicine. 4. Tobacco use He has also been counseled on the need to discontinue all tobacco products. 5. Illicit drug use He does admit to taking cocaine. This could be a contributing factor to his symptoms and his objective findings. He has been counseled on the need to discontinue all illicit drug use. Overall, at the present time, the patient appears to be remaining in sinus rhythm. He will continue medical therapy for concerns of his underlying atrial dysrhythmia and non-CAD related cardiomyopathy (possibly tachycardic induced). This will include his beta-falguni therapy, amiodarone taper, afterload reducing agents, and anticoagulant therapy. Over time depending upon his underlying cardiac dysrhythmia and left ventricular systolic function, consideration can be given to modifying medication including potentially eventual discontinuation of amiodarone therapy. He will need continued outpatient cardiovascular follow-up. He is also been counseled on the importance of avoiding illicit drug use such as cocaine use. Comment: The above has been discussed and reviewed with the patient. This note was generated using a voice recognition system and there may be incorrect words, spelling or punctuation that were not noted when reviewing the office note prior to saving.
--- NOTE | 2019-11-26 08:15 | CPS ---
pt. refuses Bipap.
--- NOTE | 2019-11-26 08:44 | PCM.DC ---
- Discharge Diagnoses Current Active Problems: Current Active and Chronic Problems (Last Updated 11/24/19 @ 09:31 by Dalia Joyce) Atrial fibrillation with rapid ventricular response (Acute) Pneumonia (Acute) Atrial fibrillation and flutter (Acute) NSTEMI (non-ST elevated myocardial infarction) (Acute) Illicit drug use (Acute) Cardiomyopathy (Acute) You will use the following diet at home:: Cardiac Your food should be the consistency of: Regular Your liquids should be the consistency of: Regular/Thin Discharge Activity: Return to Normal Activity Call your doctor if you observe: Shortness of breath, Chest pain Additional Instructions: discontinue all tobacco / nicotine products. discontinue all illicit drug use. Allergies/Adverse Reactions: Allergies No Known Allergies Allergy (Verified 09/12/18 17:05) Medications to take at Discharge mometasone-formoterol HFA 100 mcg-5 mcg/actuation aerosol inhaler 2 puff INHALATION BID #8.8 g 10/26/19 Albuterol Inhaler [Ventolin Hfa] 1 puff INHALATION Q4H PRN PRN 11/21/19 Amiodarone HCl [Cordarone] 200 mg PO DAILY #45 tab 11/26/19 Apixaban [Eliquis] 5 mg PO BID #60 tab 11/26/19 Carvedilol [Coreg (Beta Millicent)] 12.5 mg PO BID #60 tab 11/26/19 Lisinopril [Zestril] 5 mg PO BID #60 tab 11/26/19 The following prescriptions were given: Amiodarone HCl [Cordarone] 200 mg PO DAILY #45 tab Transmission Status: Pending to [facility] Carvedilol [Coreg (Beta Millicent)] 12.5 mg PO BID #60 tab Transmission Status: Pending to [facility] Apixaban [Eliquis] 5 mg PO BID #60 tab Transmission Status: Pending to [facility] Lisinopril [Zestril] 5 mg PO BID #60 tab Transmission Status: Pending to [facility] Primary Care Physician: Clarisa Roman MD [Primary Care Provider] - Please follow up with your Primary Care Physician in: 1-2 weeks Test Results: Test results from this visit will be discussed in further detail at your follow-up appointment, if applicable. Please Follow Up With: Maik Milian MD When: as directed Proposed Discharge Date: 11/26/19
[2019-11-26 09:24] LABS: Absolute Lymphocyte Count 3.91 X10^3/uL (0.83-4.51); Absolute Neutrophil Count 7.3 X10^3/uL (2.0-7.7); Basophil# 0.05 X10^3/uL; Basophil% 0.4 % (0-1); Eosinophil# 0.09 X10^3/uL; Eosinophils% 0.7 % (0-5); Hemoglobin 13.7 g/dL (13.0-16.5); Lymphocyte # 3.91 X10^3/ul (4.0); Lymphocyte % 31.3 % (19-41); Mean Corp Hgb Conc 32.6 g/dL (32-36); Mean Corpuscular Hgb 32.7 pg (27.0-32.0); Mean Corpuscular Volume 100.2 fL (80-94); Mean Platelet Vol. 10.1 fl (6.2-12.0); Monocyte# 1.03 X10^3/uL; Monocyte% 8.3 % (0-10); NRBC Flagged by Analyzer 0 % (0-5); Neutrophil # 7.28 X10^3/uL (2.7-7.7); Neutrophil % 58.3 % (47-70); Platelet Count 272 K/mm3 (150-450); RBC Distribution Width CV 13.2 % (11.6-14.6); RBC Distribution Width SD 48.3 fl (35.1-43.9); Red Blood Count 4.19 M/mm3 (4.6-6.2); White Blood Count 12.5 K/mm3 (4.4-11.0)
[2019-11-26] MEDS: APIXABAN 5 MG TABLET PO ×2 (10:18→21:19)
[2019-11-26] MEDS: Lisinopril 5 MG Tablet PO ×2 (10:19→21:20)
[2019-11-26] MEDS: Carvedilol 12.5 MG Tablet PO ×2 (10:19→21:20)
--- NOTE | 2019-11-26 11:36 | PCM.RX.CS ---
Consult Pharmacy has been consulted to manage selected antiobiotic: Vancomycin Type of Consult: New start Suspected Infection: Skin/Soft tissue Labs: Sodium 137 mmol/L (136-145) 11/25/19 02:20 Potassium 4.4 mmol/L (3.5-5.1) 11/25/19 02:20 Chloride 106 mmol/L (98-107) 11/25/19 02:20 Carbon Dioxide 25.0 mmol/L (21.0-32.0) 11/25/19 02:20 Anion Gap 6 (5-15) 11/25/19 02:20 BUN 18 mg/dL (7-18) 11/25/19 02:20 Creatinine 0.96 mg/dL (0.70-1.30) 11/25/19 02:20 Est GFR (MDRD) Af Amer 107 mL/min (>60) 11/25/19 02:20 Est GFR (MDRD) Non-Af 88 mL/min (>60) 11/25/19 02:20 BUN/Creatinine Ratio 18.7 RATIO (10-20) 11/25/19 02:20 Glucose 119 mg/dL (74-106) H 11/25/19 02:20 Microbiology: Microbiology 11/21/19 14:56 Blood Culture (Wb) - Anticubital Left Blood Culture - Preliminary No growth in 48 hours. 11/21/19 12:45 Blood Culture (Wb) - Anticubital Left Blood Culture - Preliminary No growth in 48 hours. Goal Trough: 15-20 mcg/mL Pharmacy Plan for Drug Dosing: NEW START IV VANCOMYCIN Consulting Physician: Blake Puentes Indication: Cellulitis Goal Trough: 15-20 SrCr: 0.96 CrCl: 109 mL/min (using AdjBW 83.4kg) Comments: Loading dose ordered. 2g IV x1 laoding dose administered 11/25 @1047. Vancomcyin Dose: 1250mg IV Q8hr to start 11/26/19 @1900. Pending Level: 11/27/19 @1030 prior to 4th total dose per protocol Pharmacy Service will continue to monitor and adjust dosing as required.
--- NOTE | 2019-11-26 13:30 | PCM.PN.HOSP ---
<Blake Puentes - Last Filed: 11/26/19 13:30> Patient Problems: Active and Suspected Problems (Last Updated 11/24/19 @ 09:31 by Dalia Joyce) Atrial fibrillation with rapid ventricular response (Acute) Pneumonia (Acute) Atrial fibrillation and flutter (Acute) NSTEMI (non-ST elevated myocardial infarction) (Acute) Illicit drug use (Acute) Cardiomyopathy (Acute) Reason for Visit: afib Subjective: Patient complains of right forearm erythema, swelling, warmth, spreading from the AC area where he reviewed previously had IVs. He did have a mild fever overnight, denies chills, does have some leukocytosis as well. Area appears cellulitic and has been marked. Patient did agree to staying to have this treated. No cough, shortness of breath, palpitations, chest pain. No lower extremity edema. Patient is doing well from a cardiac standpoint. Vitals/I&O's: Vital Signs Temp Pulse Resp BP Pulse Ox 98.3 F 75 16 128/49 H 94 11/26/19 10:03 11/26/19 10:03 11/26/19 10:03 11/26/19 10:03 11/26/19 10:03 Oxygen Flow Rate (L/min) 1 Oxygen Delivery Method Room Air Weight: 218 lb 4.122 oz Body Mass Index (BMI) 31.6 Intake and Output for Last 24 Hours 11/24/19 11/25/19 11/26/19 23:59 23:59 23:59 Intake Total 1525.00 / 2003.70 1693.65 / 1693.65 120 / 120 Output Total 1500 / 1900 1100 / 1100 Balance 25.00 / 103.70 593.65 / 593.65 120 / 120 General: Alert, Oriented x3, Cooperative HEENT: Atraumatic, PERRLA, EOMI, Normocephalic Neck: Supple, No JVD, Negative Carotid Bruits Lungs: Clear to auscultation, Normal air movement Cardiovascular: Regular rate, No murmurs Abdomen: Bowel Sounds Present, Soft, Non Tender Extremities: No edema, Capillary Refill Less than 3 Seconds Skin: No breakdown, - - Right AC area with increased redness, warmth, swelling, mild induration. No drainage and no appreciable fluid collection or abscess. Musculoskeletal: No Tenderness to Palpation of Joints or Extremities Neurological: Cranial nerves II-XII grossly intact Psych/Mental Status: Normal Affect, Appropriate Microbiology Past 72 Hours 11/21/19 14:56 Blood Culture (Wb) - Anticubital Left Blood Culture - Preliminary No growth in 48 hours. 11/21/19 12:45 Blood Culture (Wb) - Anticubital Left Blood Culture - Preliminary No growth in 48 hours. Laboratory Results 11/26/19 09:13: WBC 12.5 H, RBC 4.19 L, Hgb 13.7, Hct 42.0, MCV 100.2 H, MCH 32.7 H, MCHC 32.6, RDW Std Deviation 48.3 H, RDW Coeff of Aron 13.2, Plt Count 272, MPV 10.1, Immature Gran % (Auto) 1.000 H, Neut % (Auto) 58.3, Lymph % (Auto) 31.3, Power % (Auto) 8.3, Eos % (Auto) 0.7, Baso % (Auto) 0.4, Absolute Neuts (auto) 7.3, Absolute Lymphs (auto) 3.91, Nucleated RBC % 0 Current Medications Acetaminophen (Tylenol) 650 mg PO Q6H PRN PRN PRN Reason: Pain Score 1-10/Temp > 100.7 F Last Admin: 11/25/19 01:43 Dose: 650 mg Documented by: Albuterol Sulfate (Ventolin Aerosols) 2.5 mg INHALATION Q2H PRN PRN PRN Reason: SHORTNESS OF BREATH Amiodarone HCl (Cordarone) 200 mg PO TID [facility] Stop: 12/01/19 22:01 Last Admin: 11/26/19 05:54 Dose: 200 mg Documented by: Amiodarone HCl (Cordarone) 200 mg PO BID [facility] Stop: 12/15/19 22:01 Amiodarone HCl (Cordarone) 200 mg PO DAILY [facility] Apixaban (Eliquis) 5 mg PO BID [facility] Last Admin: 11/26/19 10:18 Dose: 5 mg Documented by: Carvedilol (Coreg) 12.5 mg PO BID [facility] Last Admin: 11/26/19 10:19 Dose: 12.5 mg Documented by: Dextrose (D50w Syringe) 0 gm IV X1 PRN; Protocol PRN Reason: Hypoglycemia Glucagon () 1 mg IM .X1 PRN PRN Reason: Hypoglycemia Heparin Sodium (Beef Lung) (Heparin 500 Unit/5 Ml (100/Ml)) 500 unit IV UD PRN PRN Reason: HEPARIN FLUSH Sodium Chloride () 1,000 mls @ 15 mls/hr IV .Q48H [facility] Last Infusion: 11/26/19 00:25 Dose: Infused Documented by: Sodium Chloride () 1,000 mls @ 0 mls/hr IV .Q0M KENNETH Piperacillin Sod/Tazobactam (Sod 3.375 gm/ Sodium Chloride) 50 mls @ 12.5 mls/hr IV Q8 KENNETH Last Admin: 11/26/19 10:49 Dose: 12.5 mls/hr Documented by: Vancomycin IV Pharmacy to Dose (1 ea/ Sodium Chloride) 500 mls @ 250 mls/hr IV PRN PRN; Protocol PRN Reason: Rx to Dose Vancomycin HCl 1,250 mg/ (Sodium Chloride) 275 mls @ 167 mls/hr IV Q8H [facility] Lisinopril (Zestril) 5 mg PO BID [facility] Last Admin: 11/26/19 10:19 Dose: 5 mg Documented by: Nicotine (Nicoderm Cq (Pbkc)) 7 mg TRANSDERM. DAILY [facility] Last Admin: 11/26/19 10:19 Dose: Not Given Documented by: Ondansetron HCl (Zofran) 4 mg IV Q8H PRN PRN PRN Reason: NAUSEA/VOMITING Sodium Chloride () 10 - 40 ml IV UD PRN PRN Reason: SALINE FLUSH Last Admin: 11/25/19 03:04 Dose: 10 ml Documented by: STROKE Vital Signs/Narrative: Vital Signs Temp Pulse Resp BP Pulse Ox 11/26/19 10:03 98.3 F 75 16 128/49 H 94 Medical Necessity - Tobacco Use Smoking Status: Light Smoker (<10/day) Tobacco Use: Cigarettes Assessment/Plan All Active Problems (Last Updated 11/24/19 @ 09:31 by Dalia Joyce) Atrial fibrillation with rapid ventricular response (Acute) Pneumonia (Acute) Atrial fibrillation and flutter (Acute) NSTEMI (non-ST elevated myocardial infarction) (Acute) Illicit drug use (Acute) Cardiomyopathy (Acute) 1. A. fib RVR-now in normal sinus rhythm. Possibly cocaine induced. Continue coreg and amio taper. Continue Eliquis. Cardiology following. Heart catheterization with normal coronaries this admission. Echocardiogram demonstrates ejection fraction of 45%, PASP of 40 mmHg. 2. Indeterminate troponin-demand ischemia secondary to above. 3. Acute sepsis 2/2 cellulitis - + temp 100.7 and leukocytosis, + left shift. pt appears to have developed cellulitis around the right ac IV sight. this IV has been removed. started on vanc / zosyn. check LA. BP stable. Blood cx x 2 drawn. 4. Chronic COPD, no exacerbation-PRN aerosols. 5. Nicotine abuse-continue nicotine patch, encourage complete cessation 6. History of cocaine abuse-Tox read positive. Likely contributing to #1. he denies ever using IV drugs. DVT prophylaxis: Eliquis Discharge planning: Monitor cellulitic changes overnight. This patient was seen by Blake Puentes PA-C under the supervision of <Leann Lee - Last Filed: 11/26/19 14:30> Subjective: Doing well. No CP or SOB but has R UE pain and redness that started overnight. Vitals/I&O's: Vital Signs Temp Pulse Resp BP Pulse Ox 98.3 F 75 16 128/49 H 94 11/26/19 10:03 11/26/19 10:03 11/26/19 10:03 11/26/19 10:03 11/26/19 10:03 Oxygen Flow Rate (L/min) 1 Oxygen Delivery Method Room Air Weight: 99 kg Body Mass Index (BMI) 31.6 Intake and Output for Last 24 Hours 11/24/19 11/25/19 11/26/19 23:59 23:59 23:59 Intake Total 1525.00 / 2002.70 1693.65 / 1693.65 120 / 120 Output Total 1500 / 1900 1100 / 1100 Balance 25.00 / 103.70 593.65 / 593.65 120 / 120 General: Alert, Oriented x3, Cooperative, No apparent distress, Well developed, Well nourished, - - WM, sitting up in bed watching TV and eating breakfast on RA HEENT: Atraumatic, PERRLA, EAC Clear Oral: Moist Mucosa, No Gingival or Mucosal Lesions/ Ulcerations Neck: Supple, No JVD, No Nodes, Trachea Midline Lungs: Clear to auscultation, Normal air movement, No rhonchi, No wheeze, No rales Cardiovascular: Regular rate, Regular Rhythm, Normal S1, Normal S2, No murmurs, No Ectopic Activity, No rub noted, No Gallop Abdomen: Bowel Sounds Present, Soft, Non Tender, Non-Distended, No hernias noted Extremities: No clubbing, No cyanosis, No edema, Capillary Refill Less than 3 Seconds, Peripheral Pulses Normal Skin: No rashes, No breakdown, - - Right AC area with increased redness, warmth, swelling, mild induration. No drainage and no appreciable fluid collection or abscess. at area of previous PIV insertion Musculoskeletal: No Tenderness to Palpation of Joints or Extremities, No Muscle Wasting Lymphatic: No Cervical, Supraclavicular, or Inguinal Adenopathy Neurological: Cranial nerves II-XII grossly intact, Neuro grossly intact, Muscle tone normal, Coordination normal Psych/Mental Status: Normal Affect, Appropriate, Alert and oriented to time, place, person, mood and affect Microbiology Past 72 Hours 11/21/19 14:56 Blood Culture (Wb) - Anticubital Left Blood Culture - Preliminary No growth in 48 hours. 11/21/19 12:45 Blood Culture (Wb) - Anticubital Left Blood Culture - Preliminary No growth in 48 hours. Laboratory Results 11/26/19 09:13: WBC 12.5 H, RBC 4.19 L, Hgb 13.7, Hct 42.0, MCV 100.2 H, MCH 32.7 H, MCHC 32.6, RDW Std Deviation 48.3 H, RDW Coeff of Aron 13.2, Plt Count 272, MPV 10.1, Immature Gran % (Auto) 1.000 H, Neut % (Auto) 58.3, Lymph % (Auto) 31.3, Power % (Auto) 8.3, Eos % (Auto) 0.7, Baso % (Auto) 0.4, Absolute Neuts (auto) 7.3, Absolute Lymphs (auto) 3.91, Nucleated RBC % 0 11/26/19 14:14: Lactic Acid Pending Current Medications Acetaminophen (Tylenol) 650 mg PO Q6H PRN PRN PRN Reason: Pain Score 1-10/Temp > 100.7 F Last Admin: 11/25/19 01:43 Dose: 650 mg Documented by: Albuterol Sulfate (Ventolin Aerosols) 2.5 mg INHALATION Q2H PRN PRN PRN Reason: SHORTNESS OF BREATH Amiodarone HCl (Cordarone) 200 mg PO TID [facility] Stop: 12/01/19 22:01 Last Admin: 11/26/19 05:54 Dose: 200 mg Documented by: Amiodarone HCl (Cordarone) 200 mg PO BID [facility] Stop: 12/15/19 22:01 Amiodarone HCl (Cordarone) 200 mg PO DAILY [facility] Apixaban (Eliquis) 5 mg PO BID [facility] Last Admin: 11/26/19 10:18 Dose: 5 mg Documented by: Carvedilol (Coreg) 12.5 mg PO BID [facility] Last Admin: 11/26/19 10:19 Dose: 12.5 mg Documented by: Dextrose (D50w Syringe) 0 gm IV X1 PRN; Protocol PRN Reason: Hypoglycemia Glucagon () 1 mg IM .X1 PRN PRN Reason: Hypoglycemia Heparin Sodium (Beef Lung) (Heparin 500 Unit/5 Ml (100/Ml)) 500 unit IV UD PRN PRN Reason: HEPARIN FLUSH Sodium Chloride () 1,000 mls @ 15 mls/hr IV .Q48H [facility] Last Infusion: 11/26/19 00:25 Dose: Infused Documented by: Sodium Chloride () 1,000 mls @ 0 mls/hr IV .Q0M [facility] Piperacillin Sod/Tazobactam (Sod 3.375 gm/ Sodium Chloride) 50 mls @ 12.5 mls/hr IV Q8 [facility] Last Admin: 11/26/19 10:49 Dose: 12.5 mls/hr Documented by: Vancomycin IV Pharmacy to Dose (1 ea/ Sodium Chloride) 500 mls @ 250 mls/hr IV PRN PRN; Protocol PRN Reason: Rx to Dose Vancomycin HCl 1,250 mg/ (Sodium Chloride) 275 mls @ 167 mls/hr IV Q8H [facility] Lisinopril (Zestril) 5 mg PO BID [facility] Last Admin: 11/26/19 10:19 Dose: 5 mg Documented by: Nicotine (Nicoderm Cq (Pbkc)) 7 mg TRANSDERM. DAILY [facility] Last Admin: 11/26/19 10:19 Dose: Not Given Documented by: Ondansetron HCl (Zofran) 4 mg IV Q8H PRN PRN PRN Reason: NAUSEA/VOMITING Sodium Chloride () 10 - 40 ml IV UD PRN PRN Reason: SALINE FLUSH Last Admin: 11/25/19 03:04 Dose: 10 ml Documented by: Assessment/Plan ASSESSMENT A-fib with RVR -R UE Cellulitis at PIV site HFrEF SHAQ Indeterminate troponin (? NSTEMI 1 vs 2) COPD Macrocytosis -Obesity (BMI 30.5) Cocaine Abuse (10-15 yrs) Tobacco Abuse (3-4 cig/day) PLAN -Cath done 11/23 and neg for CAD so EF depression is likely related to cocaine and tachy mediated -remains in NSR -converted to PO meds -NOAC -will need f/u with cardiology -R UE with new cellulins at PIV site -blood cx pending -US if cx + to r/u clot and septic VTE -Vanc and Zosyn for now - if blood cx neg anticipate d/c home 11/26 with Bactrim DS vs Doxycycline for 7-10 days Inpatient E&M: 61323 Subs Hosp L3
[2019-11-26 15:06] LABS: Lactic Acid 0.8 mmol/L (0.4-1.9)
--- NOTE | 2019-11-26 15:33 | CASEMGMT ---
YOSEF SIFUENTES NOTE: Anticipate pt will discharge home on Eliquis. Pt given Eliquis savings card and instructions on use. Deon RADER RN CM
[2019-11-26] MEDS: 0.9% Saline Lock 10 ML Syringe IV (18:18)
[2019-11-27] VITALS (7 sets, daily range): BP systolic 127–159; BP diastolic 53–70; PULSE 67–82; RESP 16–18; TEMP 36.8–37.3; O2SAT 94–96
[2019-11-27] MEDS: Acetaminophen 325 MG Tablet 650 MG PO (03:09)
[2019-11-27] MEDS: Amiodarone 200 MG Tablet PO (05:17)
[2019-11-27 06:44] LABS: Absolute Lymphocyte Count 2.83 X10^3/uL (0.83-4.51); Basophil# 0.04 X10^3/uL; Basophil% 0.3 % (0-1); Eosinophil# 0.17 X10^3/uL; Eosinophils% 1.3 % (0-5); Lymphocyte # 2.83 X10^3/ul (4.0); Lymphocyte % 21.3 % (19-41); Mean Corp Hgb Conc 32.5 g/dL (32-36); Mean Corpuscular Hgb 32.6 pg (27.0-32.0); Mean Corpuscular Volume 100.3 fL (80-94); Mean Platelet Vol. 10.5 fl (6.2-12.0); Monocyte# 1.05 X10^3/uL; Monocyte% 7.9 % (0-10); NRBC Flagged by Analyzer 0 % (0-5); Neutrophil # 9.01 X10^3/uL (2.7-7.7); Platelet Count 271 K/mm3 (150-450); RBC Distribution Width CV 13.1 % (11.6-14.6); RBC Distribution Width SD 48.3 fl (35.1-43.9); Red Blood Count 3.99 M/mm3 (4.6-6.2); White Blood Count 13.3 K/mm3 (4.4-11.0)
[2019-11-27 08:31] LABS: Anion Gap 8 (5-15); BUN 19 mg/dL (7-18); Calcium,Total 8.2 mg/dL (8.5-10.1); Chloride 107 mmol/L (98-107); Creatinine, Serum 1.12 mg/dL (0.70-1.30); EST Glomerular Filtration Rate 74 mL/min (>60); Est Glom Filt Rate - Afr Amer 89 mL/min (>60); Estimated Creatinine Clearance 82.38 ml/min; Glucose 129 mg/dL (74-106); Potassium 4.6 mmol/L (3.5-5.1); Sodium Level 137 mmol/L (136-145)
[2019-11-27] MEDS: Lisinopril 5 MG Tablet PO (08:42)
[2019-11-27] MEDS: Carvedilol 12.5 MG Tablet PO (08:42)
[2019-11-27] MEDS: APIXABAN 5 MG TABLET PO (08:42)
--- NOTE | 2019-11-27 08:58 | PCM.DC ---
- Discharge Diagnoses Current Active Problems: Current Active and Chronic Problems (Last Updated 11/24/19 @ 09:31 by Dalia Joyce) Atrial fibrillation with rapid ventricular response (Acute) Pneumonia (Acute) Atrial fibrillation and flutter (Acute) NSTEMI (non-ST elevated myocardial infarction) (Acute) Illicit drug use (Acute) Cardiomyopathy (Acute) You will use the following diet at home:: Cardiac Your food should be the consistency of: Regular Your liquids should be the consistency of: Regular/Thin Discharge Activity: Return to Normal Activity Call your doctor if you observe: Fever of 101 or Higher, Shortness of breath, Chest pain, - - worsening redness in arm Allergies/Adverse Reactions: Allergies No Known Allergies Allergy (Verified 09/12/18 17:05) Medications to take at Discharge mometasone-formoterol HFA 100 mcg-5 mcg/actuation aerosol inhaler 2 puff INHALATION BID #8.8 g 10/26/19 Albuterol Inhaler [Ventolin Hfa] 1 puff INHALATION Q4H PRN PRN 11/21/19 Amiodarone HCl [Cordarone] 200 mg PO DAILY #45 tab 11/26/19 Apixaban [Eliquis] 5 mg PO BID #60 tab 11/26/19 Carvedilol [Coreg (Beta Millicent)] 12.5 mg PO BID #60 tab 11/26/19 Lisinopril [Zestril] 5 mg PO BID #60 tab 11/26/19 Doxycycline [Vibramycin] 100 mg PO BID #18 cap 11/27/19 The following prescriptions were given: Amiodarone HCl [Cordarone] 200 mg PO DAILY #45 tab Transmission Status: Received by [facility] Carvedilol [Coreg (Beta Millicent)] 12.5 mg PO BID #60 tab Transmission Status: Received by [facility] Apixaban [Eliquis] 5 mg PO BID #60 tab Transmission Status: Received by [facility] Doxycycline [Vibramycin] 100 mg PO BID #18 cap Transmission Status: Pending to [facility] Lisinopril [Zestril] 5 mg PO BID #60 tab Transmission Status: Received by [facility] Primary Care Physician: Clarisa Roman MD [Primary Care Provider] - Please follow up with your Primary Care Physician in: 1-2 weeks Test Results: Test results from this visit will be discussed in further detail at your follow-up appointment, if applicable. Please Follow Up With: Maik Milian MD When: as directed Please Follow Up With: Clarisa Roman MD Proposed Discharge Date: 11/26/19
[2019-11-27 11:39] LABS: Vancomycin, Trough Level 17.8 ug/mL (5.0-15.0)
--- NOTE | 2019-11-27 12:43 | PCM.RX.CS ---
Consult Pharmacy has been consulted to manage selected antiobiotic: Vancomycin Type of Consult: Follow-up Suspected Infection: Skin/Soft tissue Labs: Sodium 137 mmol/L (136-145) 11/27/19 06:05 Potassium 4.6 mmol/L (3.5-5.1) 11/27/19 06:05 Chloride 107 mmol/L (98-107) 11/27/19 06:05 Carbon Dioxide 22.0 mmol/L (21.0-32.0) 11/27/19 06:05 Anion Gap 8 (5-15) 11/27/19 06:05 BUN 19 mg/dL (7-18) H 11/27/19 06:05 Creatinine 1.12 mg/dL (0.70-1.30) 11/27/19 06:05 Est GFR (MDRD) Af Amer 89 mL/min (>60) 11/27/19 06:05 Est GFR (MDRD) Non-Af 74 mL/min (>60) 11/27/19 06:05 BUN/Creatinine Ratio 17.0 RATIO (-20) 11/27/19 06:05 Glucose 129 mg/dL (74-106) H 11/27/19 06:05 Vancomycin Trough 17.8 ug/mL (5.0-15.0) H 11/27/19 10:22 Microbiology: Microbiology 11/21/19 14:56 Blood Culture (Wb) - Anticubital Left Blood Culture - Final No growth in 5 days. 11/21/19 12:45 Blood Culture (Wb) - Anticubital Left Blood Culture - Final No growth in 5 days. Estimated Creatinine Clearance: 93 Goal Trough: 15-20 mcg/mL Pharmacy Plan for Drug Dosing: VANCOMYCIN LEVEL RECEIVED Current Vancomycin Dose: 1250MG Q8H Number of Doses Received: 2 - 1250MG, 1 - 2000MG Vancomycin Level: 17.8 MG/DL Hours Since Last Dose: 7 Renal Function: 1.12 (CRCL 93 ML/MIN) Renal Function Trend: SLIGHT INCREASE IN SCR Lab/Micro: BC PENDING Vancomycin Plan/Comments: NO CHANGE, PATIENT HAS ONLY HAD 3 DOSES AND IS ALREADY AT 17.8 MG/DL. WILL GET A LEVEL AFTER 2 MORE DOSES TO ASSESS LEVEL AT STEADY STATE. Pharmacy Service will continue to monitor and adjust dosing as required. Labs to be done on [date and time ordered]: 11/28/19 @ 0230
--- NOTE | 2019-11-27 14:37 | PCM.DC.SUM ---
<Blake Puentes - Last Filed: 11/27/19 14:37> Discharge Date and Diagnosis Date of Admission: 11/21/19 Date of Discharge: 11/27/19 - Primary Discharge Diagnosis Acute Problems: Afib RVR nonischemic CM Cocaine abuse Acute Right upper extremity cellulitis and sepsis. COPD no exacberbation Nicotine abuse - Secondary Discharge Diagnosis Chronic Problems: Chronic Problems (Last Updated 11/24/19 @ 09:31 by Dalia Joyce) COPD (chronic obstructive pulmonary disease) (Chronic) Tobacco abuse (Chronic) Tobacco abuse counseling (Chronic) Knee pain, bilateral (Chronic) Hospital Course and Treatment Imaging Results: RAD/Chest 1 View (Portable) IMPRESSION: Right lower lobe interstitial pneumonitis, new when compared to 05/13/2018. RAD/Chest 1 View (Portable) IMPRESSION: Borderline cardiomegaly and small bilateral pleural effusions not significantly changed since November 21, 2019. Consultations 11/24/19 18:15 MD to MD Notification of Procedure Routine MD Notified:: Maik Milian Operations: None Procedures: 2-D Echocardiogram, Cardiac catheterization Summary of Care Provided: Hospital Course: The patient is a 49 year old M with past medical history of nicotine abuse, COPD, who presented to the emergency room with complaints of shortness of breath that is been worsening over 6 days, swelling in his lower extremities, difficulty lying flat. He admitted to using cocaine approximately 4 to 5 days prior. He denied had any chest pain at that time. In the ER he appeared to be in A. fib with RVR and was initiated on a Cardizem drip, was suspected to have acute CHF though he had no history, started on IV Lasix. His troponin was indeterminate at that time felt to be secondary to demand ischemia from now from A. fib RVR. He was admitted to the PCU and placed on telemetry with cardiology consulted. Echocardiogram was obtained and demonstrated an EF of 45% severely hypokinetic inferobasal and hypokinetic basal inferoseptal, with mild global hypokinesis, 2+ MVI, 1+ TVI, PASP 40 mmHg. He was taken for cardiac catheterization which did not reveal significant coronary disease. Is felt to have a nonischemic cardiomyopathy. He was placed on an amiodarone drip and converted back to normal sinus rhythm after which she was transitioned to an amiodarone taper and carvedilol for rate control, he will also continue Eliquis and lisinopril. His TSH was normal. Drug screen revealed cocaine, otherwise negative, HIV was checked was negative. The patient developed a area of erythema, warmth, swelling, and induration around the IV site on his right arm after it was removed. He had a white blood cell count and fever as well. He was felt to be septic from cellulitis. Lactate was negative and BP was stable. He was placed on Vanco and Zosyn. The following day he had marked improvement in the erythema, warmth, swelling, and resolution of induration. Blood cultures were negative at 24 hours. He was transitioned to doxycycline and will complete a 10-day total course of antibiotics. He was discharged home in stable condition. 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 This patient was seen by Blake Puentes PA-C under the supervision of Doctor Jesus. [] - Physical Exam Vitals/I&O's: Vital Signs Temp Pulse Resp BP Pulse Ox 98.5 F 73 16 127/58 H 94 11/27/19 11:58 11/27/19 11:58 11/27/19 11:58 11/27/19 11:58 11/27/19 11:58 Oxygen Flow Rate (L/min) 1 Oxygen Delivery Method Room Air Weight: 211 lb 9.6 oz Body Mass Index (BMI) 31.6 Intake and Output for Last 24 Hours 11/25/19 11/26/19 11/27/19 23:59 23:59 23:59 Intake Total 1693.65 / 1693.65 2425 / 2425 1335 / 1335 Output Total 1100 / 1100 350 / 350 1700 / 1700 Balance 593.65 / 593.65 2075 / 2075 -365 / -365 General: Alert, Oriented x3, Cooperative HEENT: Atraumatic, PERRLA, EOMI, Normocephalic Neck: Supple, No JVD, Negative Carotid Bruits Lungs: Clear to auscultation, Normal air movement Cardiovascular: Regular rate, No murmurs Abdomen: Bowel Sounds Present, Soft, Non Tender Extremities: No edema, Capillary Refill Less than 3 Seconds Skin: No rashes, No breakdown, - - erythema improved. swelling improved. warmth improved. eryhthema receding away from demarcations. Musculoskeletal: No Tenderness to Palpation of Joints or Extremities Neurological: Cranial nerves II-XII grossly intact Psych/Mental Status: Normal Affect, Appropriate, Alert and oriented to time, place, person, mood and affect Microbiology Past 72 Hours 11/21/19 14:56 Blood Culture (Wb) - Anticubital Left Blood Culture - Final No growth in 5 days. 11/21/19 12:45 Blood Culture (Wb) - Anticubital Left Blood Culture - Final No growth in 5 days. Laboratory Results 11/26/19 14:14: Lactic Acid 0.8 11/27/19 06:05: WBC 13.3 H, RBC 3.99 L, Hgb 13.0, Hct 40.0, MCV 100.3 H, MCH 32.6 H, MCHC 32.5, RDW Std Deviation 48.3 H, RDW Coeff of Aron 13.1, Plt Count 271, MPV 10.5, Immature Gran % (Auto) 1.200 H, Neut % (Auto) 68.0, Lymph % (Auto) 21.3, [place] % (Auto) 7.9, Eos % (Auto) 1.3, Baso % (Auto) 0.3, Absolute Neuts (auto) 9.0 H, Absolute Lymphs (auto) 2.83, Nucleated RBC % 0 11/27/19 06:05: Sodium 137, Potassium 4.6, Chloride 107, Carbon Dioxide 22.0, Anion Gap 8, BUN 19 H, Creatinine 1.12, Estim Creat Clear Calc 82.38, Est GFR (MDRD) Af Amer 89, Est GFR (MDRD) Non-Af 74, BUN/Creatinine Ratio 17.0, Glucose 129 H, Calcium 8.2 L 11/27/19 10:22: Vancomycin Trough 17.8 H Discharge Diet: Low fat/ Low Cholesterol, 2000 mg Sodium Diet Discharge Activity: Return to Normal Activity Call your doctor if you observe: Fever of 101 or Higher, Shortness of breath, Chest pain, - - worsening redness in arm Home Medications: Medications to take at Discharge mometasone-formoterol HFA 100 mcg-5 mcg/actuation aerosol inhaler 2 puff INHALATION BID #8.8 g 10/26/19 Albuterol Inhaler [Ventolin Hfa] 1 puff INHALATION Q4H PRN PRN 11/21/19 Amiodarone HCl [Cordarone] 200 mg PO DAILY #45 tab 11/26/19 Apixaban [Eliquis] 5 mg PO BID #60 tab 11/26/19 Carvedilol [Coreg (Beta Millicent)] 12.5 mg PO BID #60 tab 11/26/19 Lisinopril [Zestril] 5 mg PO BID #60 tab 11/26/19 Doxycycline [Vibramycin] 100 mg PO BID #18 cap 11/27/19 Following Prescrptions Were Given to Patient: Amiodarone HCl [Cordarone] 200 mg PO DAILY #45 tab Transmission Status: Received by [employer] #30 Carvedilol [Coreg (Beta Millicent)] 12.5 mg PO BID #60 tab Transmission Status: Received by [employer] #30 Apixaban [Eliquis] 5 mg PO BID #60 tab Transmission Status: Received by [employer] #30 Doxycycline [Vibramycin] 100 mg PO BID #18 cap Transmission Status: Received by [employer] #30 Lisinopril [Zestril] 5 mg PO BID #60 tab Transmission Status: Received by [employer] #30 Primary Care Physician: Clarisa Roman MD [Primary Care Provider] - Please follow up with your Primary Care Physician in: 1-2 weeks Please Follow Up With: Maik Milian MD When: as directed Please Follow Up With: Clarisa Roman MD Disposition: Home Minutes spent on discharge:: 35 Patient Condition:: Stable Medical Necessity - Tobacco Use Smoking Status: Light Smoker (<10/day) Tobacco Use: Cigarettes Meaningful Use Info Meaningful Use Diagnoses (Choose all that apply): None applicable <Leann Lee - Last Filed: 11/27/19 15:53> Discharge Date and Diagnosis - Secondary Discharge Diagnosis Chronic Problems: Chronic Problems (Last Updated 11/24/19 @ 09:31 by Dalia Joyce) COPD (chronic obstructive pulmonary disease) (Chronic) Tobacco abuse (Chronic) Tobacco abuse counseling (Chronic) Knee pain, bilateral (Chronic) Hospital Course and Treatment Consultations 11/24/19 18:15 MD to MD Notification of Procedure Routine MD Notified:: Maik Milian Summary of Care Provided: Agree with the above. Pt was instructed to drink a full glass of H2O and remain upright for at least 30 min after doxycycline dosing and to remain out of the sun Subjective: I agree with the above and the following is a reflection of my own independent history and physical Pt reports feeling better. Arm less red. Remains in NSR. - Physical Exam Vitals/I&O's: Vital Signs Temp Pulse Resp BP Pulse Ox 98.5 F 73 16 127/58 H 94 11/27/19 11:58 11/27/19 11:58 11/27/19 11:58 11/27/19 11:58 11/27/19 11:58 Oxygen Flow Rate (L/min) 1 Oxygen Delivery Method Room Air Weight: 95.98 kg Body Mass Index (BMI) 31.6 Intake and Output for Last 24 Hours 11/25/19 11/26/19 11/27/19 23:59 23:59 23:59 Intake Total 1693.65 / 1693.65 2425 / 2425 1335 / 1335 Output Total 1100 / 1100 350 / 350 1700 / 1700 Balance 593.65 / 593.65 2075 / 2075 -365 / -365 General: Alert, Oriented x3, Cooperative, No apparent distress, Well developed, Well nourished HEENT: Atraumatic, PERRLA, EOMI, Normocephalic, EAC Clear Oral: Moist Mucosa, No Gingival or Mucosal Lesions/ Ulcerations, - - dentures in place Neck: Supple Lungs: Clear to auscultation, Normal air movement, No rhonchi, No wheeze, No rales Cardiovascular: Regular rate, Regular Rhythm, Normal S1, Normal S2, No murmurs, No Ectopic Activity, No rub noted, No Gallop Abdomen: Bowel Sounds Present, Soft, Non Tender, Non-Distended Extremities: No clubbing, No cyanosis, No edema, Capillary Refill Less than 3 Seconds, Peripheral Pulses Normal Skin: No rashes, No breakdown, - - erythema improved. swelling improved. warmth improved. eryhthema receding away from demarcations.--> agree Lymphatic: No Cervical, Supraclavicular, or Inguinal Adenopathy Neurological: Cranial nerves II-XII grossly intact, Neuro grossly intact Psych/Mental Status: Normal Affect, Appropriate, Alert and oriented to time, place, person, mood and affect Microbiology Past 72 Hours 11/21/19 14:56 Blood Culture (Wb) - Anticubital Left Blood Culture - Final No growth in 5 days. 11/21/19 12:45 Blood Culture (Wb) - Anticubital Left Blood Culture - Final No growth in 5 days. Laboratory Results 11/27/19 06:05: WBC 13.3 H, RBC 3.99 L, Hgb 13.0, Hct 40.0, MCV 100.3 H, MCH 32.6 H, MCHC 32.5, RDW Std Deviation 48.3 H, RDW Coeff of Aron 13.1, Plt Count 271, MPV 10.5, Immature Gran % (Auto) 1.200 H, Neut % (Auto) 68.0, Lymph % (Auto) 21.3, [place] % (Auto) 7.9, Eos % (Auto) 1.3, Baso % (Auto) 0.3, Absolute Neuts (auto) 9.0 H, Absolute Lymphs (auto) 2.83, Nucleated RBC % 0 11/27/19 06:05: Sodium 137, Potassium 4.6, Chloride 107, Carbon Dioxide 22.0, Anion Gap 8, BUN 19 H, Creatinine 1.12, Estim Creat Clear Calc 82.38, Est GFR (MDRD) Af Amer 89, Est GFR (MDRD) Non-Af 74, BUN/Creatinine Ratio 17.0, Glucose 129 H, Calcium 8.2 L 11/27/19 10:22: Vancomycin Trough 17.8 H Inpatient E&M: 72980 Disch Hosp
== END 2019-11-27 12:58 | disposition home or self-care (01) | DRG 720 ==
LOC: ED 15:02 → PCU 16:39
PROVIDERS: Internal Medicine; Internal Medicine Cardiovascular Disease; Nurse Practitioner Family; Physician Assistant; Admitting Provider Internal Medicine; Emergency Provider Emergency Medicine; PCP Internal Medicine; Visit Provider Internal Medicine
DX: A41.9 Sepsis, unspecified organism (principal); I48.91 Unspecified atrial fibrillation; J44.0 Chronic obstructive pulmonary disease with (acute) lower respiratory infection; I21.4 Non-ST elevation (NSTEMI) myocardial infarction; I48.92 Unspecified atrial flutter; L03.113 Cellulitis of right upper limb; I42.8 Other cardiomyopathies; J18.9 Pneumonia, unspecified organism; F17.210 Nicotine dependence, cigarettes, uncomplicated; F14.23 Cocaine dependence with withdrawal; I50.21 Acute systolic (congestive) heart failure; N17.9 Acute kidney failure, unspecified; T50.2X5A Adverse effect of carbonic-anhydrase inhibitors, benzothiadiazides and other diuretics, initial encounter; I34.0 Nonrheumatic mitral (valve) insufficiency; E66.9 Obesity, unspecified; Z68.31 Body mass index [BMI] 31.0-31.9, adult; Z79.01 Long term (current) use of anticoagulants; Z83.3 Family history of diabetes mellitus; Z90.49 Acquired absence of other specified parts of digestive tract; Z80.8 Family history of malignant neoplasm of other organs or systems; Z79.899 Other long term (current) drug therapy
CPT/HCPCS: 36415; 71045; 80048; 80053; 80061; 80076; 80202; 80307; 81001; 82962; 83605; 83735; 83880; 84443; 84484; 85014; 85018; 85025; 85610; 85730; 86703; 87040; 93005; 93306; 93458; 94002; 97803; 99152; 99153; 99285; 99406; J7030; J7040; J7050; Q9957; A4216; C1769; C1894; C8929; J1940; Q9967

== ENCOUNTER → 2020-02-15 15:46 | Outpatient (CLI) | payer MEDICAID, SELFPAY ==
[2020-02-15 15:07] VITALS: BMI 31.6
[2020-02-15 17:05] LABS: Absolute Lymphocyte Count 2.31 X10^3/uL (0.83-4.51); Absolute Neutrophil Count 4.2 X10^3/uL (2.0-7.7); Basophil# 0.02 X10^3/uL; Basophil% 0.3 % (0-1); Eosinophil# 0.12 X10^3/uL; Eosinophils% 1.6 % (0-5); Hematocrit 45.3 % (40-54); Hemoglobin 14.4 g/dL (13.0-16.5); Lymphocyte # 2.31 X10^3/ul (4.0); Lymphocyte % 31.4 % (19-41); Mean Corp Hgb Conc 31.8 g/dL (32-36); Mean Corpuscular Hgb 32.2 pg (27.0-32.0); Mean Corpuscular Volume 101.3 fL (80-94); Monocyte# 0.65 X10^3/uL; Monocyte% 8.8 % (0-10); NRBC Flagged by Analyzer 0 % (0-5); Neutrophil # 4.23 X10^3/uL (2.7-7.7); Neutrophil % 57.6 % (47-70); Platelet Count 251 K/mm3 (150-450); RBC Distribution Width CV 13.3 % (11.6-14.6); RBC Distribution Width SD 50.2 fl (35.1-43.9); Red Blood Count 4.47 M/mm3 (4.6-6.2); White Blood Count 7.4 K/mm3 (4.4-11.0)
[2020-02-15 17:17] LABS: ALB/GLOB Ratio 0.9 RATIO (0.9-2.4); AST(SGOT) 12 U/L (15-37); Alanine Aminotransfer ALT/SGPT 16 U/L (16-61); Albumin, Serum 3.4 g/dL (3.2-5.0); Alkaline Phosphatase 74 U/L (45-117); Anion Gap 3 (5-15); BUN 17 mg/dL (7-18); BUN/Creat Ratio 14.3 RATIO (10-20); Chloride 108 mmol/L (98-107); Creatinine, Serum 1.19 mg/dL (0.70-1.30); EST Glomerular Filtration Rate 69 mL/min (>60); Est Glom Filt Rate - Afr Amer 83 mL/min (>60); Globulin 3.6 g/dL (2.2-4.2); Glucose 115 mg/dL (74-106); Potassium 4.4 mmol/L (3.5-5.1); Sodium Level 140 mmol/L (136-145)
[2020-02-15 18:23] LABS: HIV - WCH Non-Reactive (Nonreactive)
== END ==
PROVIDERS: PCP Internal Medicine; Referring Provider Internal Medicine; Visit Provider Internal Medicine
DX: Z11.3 Encounter for screening for infections with a predominantly sexual mode of transmission (principal); I48.0 Paroxysmal atrial fibrillation
CPT/HCPCS: 36415; 80053; 85025; 86703

== ENCOUNTER → 2020-03-15 14:52 | Outpatient (CLI) | payer MEDICAID, SELFPAY ==
[2020-02-15 15:07] VITALS: BMI 31.6
--- NOTE | 2020-03-15 14:53 | ECHOL_ITS ---
Reason For Study: CHF Procedure This was a limited 2D transthoracic echocardiogram. The study was technically difficult. Exam performed in department. Left Ventricle Normal LV size. Segmental dysfunction with preserved ejection fraction (see wall motion). The estimated ejection fraction is 55 %. Transmitral doppler flow suggestive of impaired relaxation of left ventricle. Infero-Basal: Hypokinetic. Right Ventricle Normal RV size. Normal systolic function. Atria The left atrium is mildly enlarged. Normal right atrium. No doppler evidence for ASD. Mitral Valve There is no mitral annular calcification. Normal mitral valve. Trivial mitral valve insufficiency. Tricuspid Valve Normal tricuspid valve. Trivial tricuspid valve insufficiency. Unable to estimate RV systolic pressure/pulmonary artery pressure due to technically difficult study. Aortic Valve Trisinus/trileaflet aortic valve. Normal aortic valve. Pulmonic Valve The pulmonic valve is not well visualized. Great Vessels The aortic root is not well visualized. Pericardium/Pleural No pericardial effusion. MMode/2D Measurements & Calculations LVIDd: 5.0 cm IVSd: 1.4 cm LA dimension: 4.6 cm LVIDs: 4.1 cm LVPWd: 1.2 cm FS: 18.2 % LVAd ap4: 39.2 cm2 SV(MOD-sp4): 71.2 ml SV(sp4-el): 77.3 ml EDV(MOD-sp4): 136.5 ml EDV(sp4-el): 141.2 ml LVAs ap4: 23.7 cm2 ESV(MOD-sp4): 65.3 ml ESV(sp4-el): 63.9 ml EF(MOD-sp4): 52.2 % EF(sp4-el): 54.8 % Doppler Measurements & Calculations MV E max emory: 66.1 cm/sec Lat Peak E' Emory: 9.7 cm/sec Med Peak E' Emory: 6.6 cm/sec MV A max emory: 86.5 cm/sec E/E' lat: 6.8 E/E' med: 10.0 MV E/A: 0.76 Interpretation Summary The study was technically difficult. Segmental dysfunction with preserved ejection fraction (see wall motion). The estimated ejection fraction is 55 %. The left atrium is mildly enlarged. Trivial mitral valve insufficiency. Trivial tricuspid valve insufficiency. Unable to estimate RV systolic pressure/pulmonary artery pressure due to technically difficult study. Transmitral doppler flow suggestive of impaired relaxation of left ventricle Ordering Physician: Owen Garcia Referring Physician: Clarisa Roman Performed By: Roldan Carlson RCS
== END ==
PROVIDERS: PCP Internal Medicine; Referring Provider Nurse Practitioner Family; Visit Provider Nurse Practitioner Family
DX: I48.0 Paroxysmal atrial fibrillation (principal); I50.9 Heart failure, unspecified; I42.9 Cardiomyopathy, unspecified; I21.4 Non-ST elevation (NSTEMI) myocardial infarction
CPT/HCPCS: 93308

== ENCOUNTER 2020-04-05 15:29 | Emergency (ER) | payer MEDICAID, SELFPAY ==
[2020-02-15 15:07] VITALS: BMI 31.6
[2020-04-05 15:29] VITALS: PULSE 135; RESP 24; O2SAT 99
[2020-04-05 15:30] VITALS: BP 135/82; PULSE 72; RESP 18; TEMP 36.1; O2SAT 100; BMI 32.1
--- NOTE | 2020-04-05 15:42 | EKG12_ITS ---
Test Reason : WEAKNESS Blood Pressure : / mmHG Vent. Rate : 114 BPM Atrial Rate : 129 BPM P-R Int : 000 ms QRS Dur : 100 ms QT Int : 290 ms P-R-T Axes : 000 089 -50 degrees QTc Int : 399 ms Atrial fibrillation with rapid ventricular response T wave abnormality, consider inferior ischemia Abnormal ECG Confirmed by ZAKI LAUREANO, DESHAUN ([id number]), legal editor BRIAN MANZO ([id number]) on 04/10/2020 9:32:31 A M Referred By: TONYA Confirmed By:SUE HAINES MD
[2020-04-05 16:20] LABS: Absolute Lymphocyte Count 2.11 X10^3/uL (0.83-4.51); Absolute Neutrophil Count 4.9 X10^3/uL (2.0-7.7); Basophil# 0.03 X10^3/uL; Basophil% 0.4 % (0-1); Eosinophil# 0.17 X10^3/uL; Eosinophils% 2.1 % (0-5); Hematocrit 50.4 % (40-54); Hemoglobin 16.5 g/dL (13.0-16.5); Lymphocyte # 2.11 X10^3/ul (4.0); Lymphocyte % 26.6 % (19-41); Mean Corp Hgb Conc 32.7 g/dL (32-36); Mean Corpuscular Hgb 32.4 pg (27.0-32.0); Mean Platelet Vol. 9.7 fl (6.2-12.0); Monocyte# 0.77 X10^3/uL; Monocyte% 9.7 % (0-10); NRBC Flagged by Analyzer 0 % (0-5); Neutrophil # 4.85 X10^3/uL (2.7-7.7); Neutrophil % 61.1 % (47-70); Platelet Count 310 K/mm3 (150-450); RBC Distribution Width CV 12.5 % (11.6-14.6); RBC Distribution Width SD 45.9 fl (35.1-43.9); Red Blood Count 5.09 M/mm3 (4.6-6.2); White Blood Count 7.9 K/mm3 (4.4-11.0)
--- NOTE | 2020-04-05 16:20 | RAD_ITS ---
STUDY: X-RAY CHEST REASON FOR EXAM: Male, 49 years old. weakness x 4-5 days TECHNIQUE: Single AP portable view of the chest. COMPARISON: 11/22/2019 FINDINGS: The lungs are clear and expanded. There is no demonstrated pleural abnormality. Normal size heart. Normal mediastinum and jeremy. Normal visualized pulmonary arteries. Normal visualized aortic arch and descending thoracic aorta. Normal visualized thoracic spine. Multiple healed left rib fractures. There is no demonstrated abnormality of the visualized soft tissue structures of the upper abdomen. RAD/Chest 1 View (Portable) IMPRESSION: No active disease. Electronically Signed: Uday Schaefer MD at 16:48 EST Tel , Service support ,
[2020-04-05 16:44] LABS: Anion Gap 5 (5-15); BUN 51 mg/dL (7-18); BUN/Creat Ratio 26.6 RATIO (10-20); Calcium,Total 9.1 mg/dL (8.5-10.1); Chloride 107 mmol/L (98-107); Creatinine, Serum 1.92 mg/dL (0.70-1.30); EST Glomerular Filtration Rate 40 mL/min (>60); Est Glom Filt Rate - Afr Amer 48 mL/min (>60); Estimated Creatinine Clearance 48.05 ml/min; Glucose 132 mg/dL (74-106); Potassium 5.2 mmol/L (3.5-5.1); Sodium Level 136 mmol/L (136-145)
--- NOTE | 2020-04-05 16:50 | CT_ITS ---
STUDY: CT BRAIN WITHOUT CONTRAST REASON FOR EXAM: Male, 49 years old. WEAKNESS X 4-5 DAYS RADIATION DOSAGE (If Supplied By Facility): CTDIvol = ( 44.99 ) mGy, DLP = ( 829.85 ) mGycm TECHNIQUE: Transaxial CT imaging of the brain was performed without administration of intravenous contrast material. Individualized dose optimization techniques were used for this CT. COMPARISON: No relevant priors. FINDINGS: Normal soft tissue structures. Normal calvarium. Normal size ventricles and extra-axial spaces for the patient''s age. Normal white matter tracts of the cerebral hemispheres. Normal basal ganglia and thalami. Normal brainstem. Normal cerebellum. There is no intracranial hemorrhage. There are no findings of an acute ischemic infarction. Normal visualized paranasal sinuses. CT/Brain/Head without Contrast IMPRESSION: Normal unenhanced CT scan of the brain. Electronically Signed: Gregg Randall MD at 17:50 EST , Service support ,
[2020-04-05] MEDS: dilTIAZem 25 MG/5 ML Vial 20 MG IV BOLUS (17:01)
[2020-04-05] MEDS: Morphine 4 MG/ML Syringe IV (17:01)
[2020-04-05] MEDS: Ondansetron 4 MG/2 ML Vial IV (17:01)
[2020-04-05 17:14] LABS: Bacteria 0 SEEN /hpf (None Seen); Mucous, Urine 0 SEEN /hpf (<or=2+); Red Blood Cells-Urine 0 SEEN /hpf (0-5); Squamous Epithelial Cells - UA 0 SEEN /hpf (0-5); White Blood Cells 0 SEEN /hpf (0-5)
[2020-04-05 17:24] LABS: Color, Urine Yellow (Yellow); Glucose, Dipstick Normal (Normal); Ketone-Dipstick Negative (Negative); Leukocyte Esterase-Dipstick Negative /ul (Negative); Nitrite-Dipstick Negative (Negative); Occult Blood-Urine Negative /ul (Negative); Protein-Dipstick 15 mg/dl (Negative); Specific Gravity, Urine 1.025 (1.002-1.030); Urine Bilirubin Dipstick Negative (Negative); Urine Clarity Clear (Clear); Urine Urobilinogen Normal (Normal)
[2020-04-05 17:29] VITALS: BP 121/83; PULSE 90; RESP 16; O2SAT 99
[2020-04-05 17:32] LABS: Amphetamine Urine VISTA NEGATIVE (<1000 ng/mL); Barbiturate Urine VISTA NEGATIVE (< 200 ng/mL); Benzodiazepine Urine VISTA NEGATIVE (< 200 ng/mL); Cocaine Urine VISTA NEGATIVE (< 300 ng/mL); Ecstacy Urine VISTA NEGATIVE (< 500 ng/mL); Methadone Urine VISTA NEGATIVE (< 300 ng/mL); PCP Urine VISTA NEGATIVE (< 25 ng/mL); THC Urine VISTA NEGATIVE (< 50 ng/mL); Vista UDS pH Range 5
--- NOTE | 2020-04-05 18:49 | ED.VISSUMM ---
- ER Visit Summary Date of Service: 04/05/20 Chief Complaint: Fatigue History of Present Illness: The patient is a [address] Milian and Dr. Roman. He reports that he has a history of atrial fibrillation. He was seen by Dr. Milian's nurse practitioner 2 weeks ago and had an echo that was unremarkable. He was in sinus rhythm and I stopped his amiodarone. States that over the past 3 days he has had fatigue. He denies chest pain. States he has a chronic cough that is unchanged. He denies any change in his breathing. Complains of myalgias and a headache that 6 out of 10 severity that he describes as throbbing. He denies any injury to his head. He also complains of generalized weakness. Patient denies sick contacts. However, he wears a mask inconsistently. He is on Eliquis. He missed his dose the past 2 days. He did take a dose this morning. He is on carvedilol 12.5 mg p.o. twice daily which she reports that he did not take yesterday either. Physical Examination: Vitals: Stable. Afebrile. General: Well-nourished and well-developed. Head: Normocephalic atraumatic. Neck: Supple, no lymphadenopathy. No JVD. Nontender. Cardiovascular: Tachycardic regular rhythm. No murmurs. Respiratory: No respiratory distress. Clear to auscultation bilaterally. Abdominal: Soft, nontender, nondistended, normal bowel sounds. No guarding, rebound, or peritoneal signs. Back: Nontender. Extremities: Nontender, no edema. Skin: Normal color, no rash. Neurologic: Alert and oriented ?3. Cranial nerves II through XII are intact. Normal strength and sensation. Psych: Normal affect. Test Results: EKG is A. fib at [address] changes. Troponin is negative. UA is normal. Chem-7 shows a potassium of 5.2 with moderate hemolysis. Glucose 132, BUN 51, creatinine 1.92. Baseline creatinine in 2019 has been 0.89?1.34. CBC is normal. Talk screen is negative. COVID-19 is pending. Clinical Impression(s) from Imaging Studies Chest X-Ray 04/05/20 16:20 IMPRESSION: No active disease. Electronically Signed: Uday Schaefer MD at 16:48 EST Tel , Service support , Brain CT 04/05/20 16:50 IMPRESSION: Normal unenhanced CT scan of the brain. Electronically Signed: Gregg Randall MD at 17:50 EST , Service support , Emergency Department Course and Treatment: Patient was given dose of Cardizem IV. His heart rates been in the 80s to 90s. He is feels well and would like to go home. At this time he is not a candidate for cardioversion as it is unclear how long he has been in this. He has not been compliant with his Eliquis. He was given a liter of normal saline. Treatment Plan: Patient was discussed with Dr. Enriquez. He will be discharged and placed back on his amiodarone 200 mg a day. Instructed to Take his carvedilol as scheduled. Push fluids. Continue his Eliquis. He is instructed to call Dr. Milian tomorrow to let him know how he is doing. Return to the emergency department for any worsening symptoms. Disposition: To home in improved and stable condition. Impression: 1. Atrial fibrillation. 2. Generalized weakness. 3. Dehydration. 4. Acute kidney injury. This note was generated with [employer]al[employer] dictation software. It may contain incorrect words, spelling, and punctuation that were not noted in review of the chart prior to signing ED Disposition - Plan for ED Patient: Instructions: ED AFIB, ED Dehydration Adult Prescriptions: Amiodarone HCl 200 mg PO DAILY #30 tablet Referrals: Clarisa Roman MD [Primary Care Provider] - 1-2 Days if not improving Maik Milian MD [STAFF PHYSICIAN] - 1 Week Additional Instructions: Call Dr. Milian tomorrow to let him know how you are doing. Quarantine until your COVID-19 results return.
[2020-04-05 19:00] VITALS: BP 138/35; PULSE 91; RESP 18; O2SAT 98
[2020-04-05 19:10] VITALS: PULSE 81; RESP 18; O2SAT 87
[2020-04-05] MEDS: Amiodarone 200 MG Tablet PO (19:18)
[2020-04-05 19:31] LABS: Probe Check PASS; Specimen Processing Control PASS
== END 2020-04-05 19:21 | disposition home or self-care (01) ==
LOC: ED 17:07
PROVIDERS: Emergency Provider Emergency Medicine; PCP Internal Medicine
DX: I48.91 Unspecified atrial fibrillation (principal); R53.1 Weakness; E86.0 Dehydration; N17.9 Acute kidney failure, unspecified; Z79.01 Long term (current) use of anticoagulants; Z91.14 Patient's other noncompliance with medication regimen; R05 Cough
CPT/HCPCS: 70450; 71045; 80048; 80307; 81001; 84484; 85025; 87635; 93005; 99283; A4216; J2405; U0002

== ENCOUNTER → 2020-11-03 15:27 | Outpatient (CLI) | payer MEDICAID, SELFPAY ==
[2020-11-03 14:36] VITALS: BMI 34.0
[2020-11-03 16:44] LABS: Absolute Lymphocyte Count 2.95 X10^3/uL (0.83-4.51); Absolute Neutrophil Count 5.8 X10^3/uL (2.0-7.7); Basophil# 0.04 X10^3/uL; Basophil% 0.4 % (0-1); Eosinophil# 0.12 X10^3/uL; Eosinophils% 1.3 % (0-5); Hematocrit 46.3 % (40-54); Lymphocyte # 2.95 X10^3/ul (0.83-4.51); Lymphocyte % 30.9 % (19-41); Mean Corp Hgb Conc 32.4 g/dL (32-36); Mean Corpuscular Hgb 31.2 pg (27.0-32.0); Mean Corpuscular Volume 96.3 fL (80-94); Mean Platelet Vol. 10.9 fl (6.2-12.0); Monocyte# 0.64 X10^3/uL; Monocyte% 6.7 % (0-10); NRBC Flagged by Analyzer 0 % (0-5); Neutrophil # 5.76 X10^3/uL (2.7-7.7); Neutrophil % 60.3 % (47-70); Platelet Count 265 K/mm3 (150-450); RBC Distribution Width CV 12.9 % (11.6-14.6); RBC Distribution Width SD 45.9 fl (35.1-43.9); Red Blood Count 4.81 M/mm3 (4.6-6.2); White Blood Count 9.6 K/mm3 (4.4-11.0)
[2020-11-03 17:19] LABS: AST(SGOT) 16 U/L (15-37); Alanine Aminotransfer ALT/SGPT 20 U/L (16-61); Albumin, Serum 3.3 g/dL (3.2-5.0); Alkaline Phosphatase 81 U/L (45-117); Globulin 4.1 g/dL (2.2-4.2); Protein, Total 7.4 g/dL (6.4-8.2); Thyroid Stim Hormone (TSH) 1.11 uIU/mL (0.358-3.74)
== END ==
PROVIDERS: PCP Internal Medicine; Referring Provider Physician Assistant Medical; Visit Provider Physician Assistant Medical
DX: I48.91 Unspecified atrial fibrillation (principal); Z91.89 Other specified personal risk factors, not elsewhere classified; Z79.899 Other long term (current) drug therapy
CPT/HCPCS: 36415; 80076; 84443; 85025

== ENCOUNTER → 2020-11-08 12:53 | Outpatient (CLI) | payer MEDICAID, SELFPAY ==
[2020-11-03 14:36] VITALS: BMI 34.0
[2020-11-07 11:38] VITALS: BMI 34.0
--- NOTE | 2020-11-08 14:15 | PFTCOMP ---
COMPLETE PULMONARY FUNCTION TEST INTERPRETATION Brief HPI: Patient is a 50 year old male, currently under the care of Dalia Johnson, who presents to [facility] for complete pulmonary function tests secondary to diagnosis of A. fib. Respiratory therapist reports good effort and reproducible results. Interpretation: Forced expiration spirometry shows a severe large airways obstructive ventilatory defect with an FEV1 of 45% predicted. There is no significant bronchodilator response by strict ATS criteria. Spirograms are of good quality and plateau slowly, indicating slowly emptying areas of the lungs. The respiratory flow volume loop shows decreased expiratory flow rates at all lung volumes consistent with airway obstruction. Lung volumes by body plethysmography show a normal total lung capacity at 6.61 L, 97% predicted. FRC and RV are elevated out of proportion. Lung volume measurements are consistent with air-trapping. Diffusion capacity by carbon monoxide is decreased at 64% predicted. The airway resistance is elevated. Compared to previous pulmonary function tests from 09/08/2018, there has been no significant change. Impression: Irreversible severe large airways obstructive ventilatory defect, resulting in air trapping, and a symmetric reduction in diffusion capacity. There is been no significant change compared to previous
== END ==
PROVIDERS: PCP Internal Medicine; Referring Provider Physician Assistant Medical; Visit Provider Physician Assistant Medical
DX: I48.91 Unspecified atrial fibrillation (principal); Z91.89 Other specified personal risk factors, not elsewhere classified; Z79.899 Other long term (current) drug therapy
CPT/HCPCS: 94060; 94726; 94729

== ENCOUNTER → 2020-11-09 16:12 | Outpatient (CLI) | payer MEDICAID, SELFPAY ==
[2020-11-09 15:57] VITALS: BMI 34.0
[2020-11-09 18:10] LABS: Anion Gap 4 (5-15); BUN 23 mg/dL (7-18); BUN/Creat Ratio 22.3 RATIO (10-20); Calcium,Total 8.8 mg/dL (8.5-10.1); Chloride 110 mmol/L (98-107); Cholesterol 139 mg/dL (200); Creatinine, Serum 1.03 mg/dL (0.70-1.30); EST Glomerular Filtration Rate 81 mL/min (>60); Est Glom Filt Rate - Afr Amer 98 mL/min (>60); Glucose 123 mg/dL (74-106); High Density Lipoprotein 39 mg/dL; Potassium 5.1 mmol/L (3.5-5.1); Sodium Level 143 mmol/L (136-145); Triglycerides 149 mg/dL; Very Low Density Lipoprotein 30 mg/dL (5-40)
== END ==
PROVIDERS: PCP Internal Medicine; Referring Provider Internal Medicine; Visit Provider Internal Medicine
DX: I10 Essential (primary) hypertension (principal)
CPT/HCPCS: 36415; 80048; 80061

== ENCOUNTER 2021-07-24 14:23 | Outpatient (CLI) | payer MEDICAID, SELFPAY ==
[2021-07-24 16:12] LABS: ALB/GLOB Ratio 0.9 RATIO (0.9-2.4); AST(SGOT) 11 U/L (15-37); Alanine Aminotransfer ALT/SGPT 18 U/L (16-61); Albumin, Serum 3.3 g/dL (3.2-5.0); Alkaline Phosphatase 87 U/L (45-117); Anion Gap 3 (5-15); BUN 21 mg/dL (7-18); BUN/Creat Ratio 19.8 RATIO (10-20); Calcium,Total 8.8 mg/dL (8.5-10.1); Chloride 109 mmol/L (98-107); Creatinine, Serum 1.06 mg/dL (0.70-1.30); EST Glomerular Filtration Rate 78 mL/min (>60); Est Glom Filt Rate - Afr Amer 95 mL/min (>60); Globulin 3.6 g/dL (2.2-4.2); Glucose 137 mg/dL (74-106); Potassium 4.7 mmol/L (3.5-5.1); Protein, Total 6.9 g/dL (6.4-8.2); Sodium Level 140 mmol/L (136-145); Thyroid Stim Hormone (TSH) 0.77 uIU/mL (0.358-3.74)
[2021-07-25 08:24] LABS: HIV - WCH Non-Reactive (Nonreactive); Hepatitis B Surface Antigen Non-Reactive (Nonreactive); Hepatitis C Antibody Non-Reactive (Nonreactive); Syphilis Antibodies Non-reactive
== END 2021-07-24 23:59 | disposition home or self-care (01) ==
LOC: BIMLAB 14:23
PROVIDERS: Physician Assistant Medical; PCP Internal Medicine; Referring Provider Physician Assistant; Visit Provider Physician Assistant
DX: I48.11 Longstanding persistent atrial fibrillation (principal); I42.9 Cardiomyopathy, unspecified; Z91.89 Other specified personal risk factors, not elsewhere classified; Z79.899 Other long term (current) drug therapy
CPT/HCPCS: 36415; 80053; 84443; 86703; 86780; 86803; 87340

== ENCOUNTER 2021-08-23 06:56 | Outpatient (CLI) | payer MEDICAID, SELFPAY ==
--- NOTE | 2021-08-23 12:38 | PFT ---
INTRODUCTION: The patient is a 51-year-old male that presents for pulmonary function studies secondary to a diagnosis of atrial fibrillation. Respiratory therapy reported good patient effort. Bronchodilators were used during testing. INTERPRETATION: Forced expiration spirometry demonstrates the presence of a severe large airways obstructive ventilatory defect. There was no significant response to aerosolized bronchodilators. Spirograms are of good quality but do not plateau indicating slow emptying of the lungs. Body plethysmography was performed and revealed an elevated RV to 154% of predicted, indicative of underlying air trapping. Diffusing capacity by single breath CO is reduced at 53% of predicted. IMPRESSION: Irreversible severe large airways obstructive ventilatory defect with associated air trapping and symmetric reduction in diffusing capacity.
== END 2021-08-23 23:59 | disposition home or self-care (01) ==
LOC: PSN 06:58
PROVIDERS: PCP Internal Medicine; Referring Provider Physician Assistant Medical; Visit Provider Physician Assistant Medical
DX: I48.11 Longstanding persistent atrial fibrillation (principal); I42.9 Cardiomyopathy, unspecified; Z91.89 Other specified personal risk factors, not elsewhere classified; Z79.899 Other long term (current) drug therapy
CPT/HCPCS: 94060; 94726; 94729

== ENCOUNTER → 2021-11-07 | Outpatient (CLI) | payer MEDICAID, SELFPAY ==
[2021-11-07 16:57] LABS: Cholesterol 134 mg/dL (200); High Density Lipoprotein 38 mg/dL; Triglycerides 117 mg/dL; Very Low Density Lipoprotein 23 mg/dL (5-40)
== END | disposition home or self-care (01) ==
LOC: BIMLAB 14:34
PROVIDERS: PCP Internal Medicine; Visit Provider Internal Medicine
DX: I10 Essential (primary) hypertension (principal)
CPT/HCPCS: 36415; 80061